=== PATIENT | female | born 1945 | race Caucasian/White ===

== ENCOUNTER 2020-03-14 06:09 | Outpatient (REF) | payer MEDICARE, SELFPAY | END 2020-03-14 06:10 | disposition home or self-care (01) | LOC: HO.LAB 06:09 | PROVIDERS: PCP Internal Medicine; Visit Provider Internal Medicine | DX: Z20.828 Contact with and (suspected) exposure to other viral communicable diseases (principal) | CPT/HCPCS: C9803; U0003 ==

== ENCOUNTER 2020-05-10 10:15 | Outpatient (REF) | payer MEDICARE, SELFPAY | END 2020-05-10 10:16 | disposition home or self-care (01) | LOC: HO.LAB 10:15 | PROVIDERS: Visit Provider Nurse Practitioner Family | DX: L02.811 Cutaneous abscess of head [any part, except face] (principal) | CPT/HCPCS: 87071; 87205 ==

== ENCOUNTER 2020-12-04 08:41 | Outpatient (REF) | payer MEDICARE, SELFPAY ==
--- NOTE | ~2020-12-04 | MM_ITS ---
EXAMINATION: MM SCREENING DIGITAL BREAST TOMOSYNTHESIS, BILATERAL CLINICAL INFORMATION: Screening. Asymptomatic. The lifetime risk of breast cancer based on the Tyrer-Cuzick Model is 8%. COMPARISON: Mammography: 12/03/2019, outside exam 09/08/2018 ([facility]). TECHNIQUE: Digital breast tomosynthesis is performed in both the craniocaudal and mediolateral oblique views along with computer-aided detection (CAD). Synthesized 2D images are generated from the tomosynthesis. Additional right CC view is provided. FINDINGS: The breasts are heterogeneously dense, which may obscure small masses (ACR BI-RADS breast composition Category c). Parenchymal pattern is similar to prior studies. There is no interval significant mass or developing density. No three-dimensional architectural abnormality. There are scattered bilateral benign round calcifications. The axilla and skin contours are unremarkable. No significant changes. MM/MM tomosynthesis screening BI IMPRESSION: No significant changes from prior studies. ASSESSMENT: BI-RADS 2: Benign RECOMMENDATION: Routine annual mammography screening. This patient's information was entered into a reminder system with a target due date for their next mammogram.
== END 2020-12-04 08:42 | disposition home or self-care (01) ==
LOC: HO.MAMMO 08:41
PROVIDERS: PCP Internal Medicine; Visit Provider Internal Medicine
DX: Z12.31 Encounter for screening mammogram for malignant neoplasm of breast (principal)
CPT/HCPCS: 77063; 77067

== ENCOUNTER 2021-01-27 15:17 | Emergency (ER) | payer MEDICARE, SELFPAY ==
--- NOTE | ~2021-01-27 | XR_ITS ---
EXAMINATION: XR CHEST CLINICAL INFORMATION: Shortness of breath. COMPARISON: 05/23/2019 chest radiographs. TECHNIQUE: Frontal view of the chest was obtained. FINDINGS: Mild increased hazy opacification is seen at the left lung base. The left upper lung field and right lung are clear. The heart and mediastinal structures are unremarkable. XR/XR chest 1V IMPRESSION: AP opacification at the left lung base is nonspecific and could be projectional however, appears increased and increased atelectasis or an infiltrate cannot be excluded.
[2021-01-27 16:38] VITALS: BP 128/60; PULSE 69; RESP 18; TEMP 36.9; O2SAT 96; BMI 33.6
[2021-01-27 17:15] LABS: IDNOW Serial# 9DD0AD1C; Strep A Nucleic Acid Negative (Negative)
[2021-01-27 17:25] LABS: COVID-19 Test Negative (Negative)
--- NOTE | 2021-01-27 17:50 | ED.URI ---
HPI - URI/Sore Throat General Chief Complaint: Upper Respiratory Symptoms Stated Complaint: sore throat, cough Time Seen by Provider: 01/27/21 17:34 Source: patient Mode of arrival: ambulatory Limitations: no limitations History of Present Illness HPI Narrative: Patient presents ED for sore throat, and cough since last night. Patient denies any chest pain or shortness of breath. Patient states vaccinated against COVID-19 virus. Patient denies any swelling of lower extremity or calf pain. Related Data Home Medications Medication Instructions Recorded Confirmed albuterol sulfate 90 mcg/actuation 0 mcg INHALATION 04/26/20 11/28/20 aerosol inhaler flu vacc [id number](65yr up)-PF 240 ml IM 04/26/20 11/28/20 mcg/0.7 mL intramuscular syringe fluticasone furoate 100 ea INHALATION 04/26/20 11/28/20 mcg-vilanterol 25 mcg/dose inhalation powder duloxetine 60 mg capsule,delayed 60 mg PO DAILY 11/28/20 11/28/20 release trazodone 50 mg tablet 50 mg PO BEDTIME 11/28/20 11/28/20 Previous Rx's Medication Instructions Recorded pantoprazole 40 mg tablet,delayed 40 mg PO DAILY #90 tab 07/09/20 release amoxicillin 500 mg capsule 1,000 mg PO TID 5 Days #30 cap 01/27/21 azithromycin 250 mg tablet 250 mg PO DAILY 6 Days #6 tab 01/27/21 Allergies Allergy/AdvReac Type Severity Reaction Status Date / Time No Known Allergies Allergy Verified 01/27/21 16:38 [No Known Allergies*] Review of Systems Review of Systems: Yes all other systems are reviewed and are negative Constitutional: Constitutional: Reports as per HPI, Reports no additional constitutional complaints and Denies snoring Eyes: Eyes: Reports as per HPI and Reports no additional eye complaints ENT: Reports system reviewed and no additional complaints, except as documented, Reports as per HPI and Reports sore throat Cardiovascular: Cardiovascular: Reports as per HPI, Reports no additional cardiovascular complaints, Denies chest pain, Denies chest pain at rest, Denies dyspnea and Denies dyspnea on exertion Respiratory: Respiratory: Reports as per HPI, Reports no additional respiratory complaints, Denies no additional respiratory complaints, Denies change in phlegm color, Denies chest congestion, Denies hemoptysis, Denies excessive phlegm production, Denies pain on inspiration, Reports pain with cough, Denies dyspnea, Denies dyspnea on exertion, Denies snoring, Denies stridor and Denies wheezing Gastrointestinal: Gastrointestinal: Reports as per HPI and Reports no additional gastrointestinal complaints Genitourinary: Genitourinary: Reports no additional female genitourinary complaints and Reports as per HPI Musculoskeletal: Musculoskeletal: Reports no additional musculoskeletal complaints and Reports as per HPI Neurologic: Reports system reviewed and no additional complaints, except as documented and Reports as per HPI Psychiatric: Psychiatric: Reports no additional psychiatric complaints and Reports as per HPI Allergic/Immunologic: Allergic/Immunologic: Denies wheezing PMFSH Past Medical History Medical History Chronic GERD Depression Environmental and seasonal allergies Impaired fasting glucose Mild intermittent asthma in adult without complication Osteopenia of multiple sites Skin lesion of face Tubular adenoma of colon Surgical History No pertinent past surgical history Family History Family History Sister Thyroid disorder Social History Social History Housing: House Alcohol intake: current Patient Tobacco Use Status: Never used Tobacco e-Cigarette/Vaping Use: Never Used Second Hand Smoke Exposure: No Advance Directives: No Advance Directives Information Provided: No Current occupational status: employed Current occupation: working part-time at [employer] Current occupational exposures/hazards: No Physical Exam Vital Signs: Vital Signs: Last Vital Signs Temp 98.3 F 01/27/21 17:59 Pulse 80 01/27/21 18:35 Resp 15 01/27/21 18:35 BP 144/72 H 01/27/21 18:35 Pulse Ox 96 01/27/21 18:35 Body Mass Index 33.6 Const: General: cooperative, healthy appearing, comfortable, no acute distress, well developed, alert and awake Orientation/consciousness: patient oriented x3 HENMT: Head: Yes normal to inspection, Yes No palpable skull fracture present, Yes normocephalic, Yes atraumatic and No abrasion Eyes: General: appearance normal, both eyes and all related structures Neck: Neck: Yes normal visual inspection, Yes full ROM, Yes no lymphadenopathy, Yes no meningeal signs, Yes trachea midline, Yes supple and No tender Chest: Chest palpation & inspection: normal inspection of the chest and normal palpation of entire chest wall Resp: Effort & Inspection: normal respiratory effort and able to speak in complete sentences Auscultation: clear to auscultation bilaterally Cardio: Jugular venous distension: no JVD Heart sounds: S1 normal heart sound present and S2 normal heart sound present GI: Inspection: Yes normal to inspection and No abdominal wall ecchymosis Palpation (GI): Soft to palpation, not firm, nontender, no guarding and not rigid : General: No CVA tenderness and Yes no CVA tenderness Back/Spine/Pelvis: Back: no CVA tenderness, No CVA tenderness and No back tenderness Skin: General skin exam: no rashes or lesions noted and elasticity normal Neuro: General: patient oriented x3, gait normal, no meningeal signs and CN's II-XI intact bilaterally Cranial nerves: Yes CN's II-XII intact bilaterally Extrem: Other: Lower extremities negative for swelling, pitting edema, or calf tenderness General: Yes normal to inspection and Yes full ROM Psych: Appearance: grossly normal, well kempt and not disheveled Course Course Course Narrative: Patient received COVID swab, rapid strep and chest x-ray. Reevaluation(s) Reevaluation #1: Covid and strep test came back negative. Chest x-ray shows questionable pneumonia. Will be discharged with antibiotics. Time: 17:58 MDM - URI/Sore Throat MDM Narrative Medical decision making narrative: Pneumonia Lab Data Labs: Lab Results 01/27/21 01/27/21 Range/Units 16:59 16:59 COVID-19 (JAYNE) Negative (Negative) COVID-19 Clin Com See Note S. pyogenes GrpA RONEY Negative (Negative) Discharge Plan Discharge Clinical Impression: Pneumonia Patient Disposition: Home, Self-Care Instructions: Bacterial Pneumonia (ED) Additional Instructions: Chest x-ray shows pneumonia. COVID swab and strep test came back negative. Return to the ED for any chest pain, shortness of breath, swelling of lower extremity, calf pain, coughing up blood, intractable fever, chills, weakness, or any other concerning symptoms. Please follow up with PCP. Prescriptions: New amoxicillin 500 mg capsule 1,000 mg PO TID 5 Days Qty: 30 RF: 0 azithromycin 250 mg tablet 250 mg PO DAILY 6 Days Qty: 6 RF: 0 No Action pantoprazole 40 mg tablet,delayed release (DR/EC) 40 mg PO DAILY Qty: 90 RF: 3 Fluzone HighDose Quad 20-21 PF 240 mcg/0.7 mL syringe IM RF: 0 Breo Ellipta 100-25 mcg/dose blister with device inhalation RF: 0 albuterol sulfate 90 mcg/actuation HFA aerosol inhaler 0 mcg inhalation RF: 0 duloxetine 60 mg capsule,delayed release(DR/EC) 60 mg PO DAILY RF: 0 trazodone 50 mg tablet 50 mg PO BEDTIME RF: 0 Stand Alone Forms: Work/School Release Interventions: ED Discharge Assessment Last Done: 01/27/21 18:36 Discharge Date/Time: 01/27/21 18:39 Print Language: Hungarian
[2021-01-27 17:59] VITALS: BP 125/67; PULSE 60; RESP 16; TEMP 36.8; O2SAT 98
[2021-01-27 18:35] VITALS: BP 144/72; PULSE 80; RESP 15; O2SAT 96
== END 2021-01-27 18:39 | disposition home or self-care (01) ==
PROVIDERS: Emergency Provider Emergency Medicine Emergency Medical Services; PCP Internal Medicine
DX: J18.9 Pneumonia, unspecified organism (principal); R05.9 Cough, unspecified; Z20.822 Contact with and (suspected) exposure to COVID-19; Z79.899 Other long term (current) drug therapy
CPT/HCPCS: 36415; 71045; 87635; 87651; 99283; 99284

== ENCOUNTER 2021-02-02 09:35 | Outpatient (REF) | payer MEDICARE, OTHER, SELFPAY ==
--- NOTE | ~2021-02-02 | XR_ITS ---
EXAMINATION: XR CHEST CLINICAL INFORMATION: Cough COMPARISON: Previous chest x-ray most recent 01/27/2021 TECHNIQUE: 2 views of the chest were obtained. FINDINGS: No significant abnormality is noted involving the heart, lungs, mediastinum, bony thorax or soft tissues. XR/XR chest 2V IMPRESSION: Unremarkable examination.
== END 2021-02-02 09:36 | disposition home or self-care (01) ==
LOC: HO.HMGCX 09:35
PROVIDERS: PCP Internal Medicine; Visit Provider Physician Assistant Medical
DX: R05.9 Cough, unspecified (principal)
CPT/HCPCS: 71046

== ENCOUNTER 2021-02-02 11:12 | Outpatient (REF) | payer MEDICARE, SELFPAY | END 2021-02-02 11:13 | disposition home or self-care (01) | LOC: HO.LNP 11:12 | PROVIDERS: Referring Provider Physician Assistant Medical; Visit Provider Physician Assistant Medical | DX: Z20.822 Contact with and (suspected) exposure to COVID-19 (principal) | CPT/HCPCS: U0003; U0005 ==

== ENCOUNTER 2021-03-06 12:24 | Outpatient (REF) | payer MEDICARE, SELFPAY ==
[2021-03-06 14:31] LABS: Alanine Aminotransferase 17 U/L (0-31); Anion Gap 11 (12-20); Aspartate Amino Transferase 21 U/L (5-31); Blood Urea Nitrogen 11 mg/dL (9-16); Calcium 9.4 mg/dL (8.4-10.2); Carbon Dioxide 26 mmol/L (22-29); Chloride 108 mmol/L (96-108); Cholesterol 175 mg/dL; Estimated Glomerular Filt Rate > 60; Glucose Fasting 93 mg/dL (60-99); HDL Cholesterol 61 mg/dL; LDL Cholesterol Calculated 95 mg/dl; Potassium 4.2 mmol/L (3.3-5.1); Sodium 141 mmol/L (135-145); Triglycerides 98 mg/dL
[2021-03-06 14:55] LABS: Vitamin D 25-OH Total 36.3 ng/mL (>30)
== END 2021-03-06 12:25 | disposition home or self-care (01) ==
LOC: HO.HMGCLDS 12:24
PROVIDERS: PCP Internal Medicine; Visit Provider Internal Medicine
DX: Z00.00 Encounter for general adult medical examination without abnormal findings (principal); I10 Essential (primary) hypertension; Z78.0 Asymptomatic menopausal state
CPT/HCPCS: 36415; 80048; 80061; 82306; 84450; 84460

== ENCOUNTER 2021-08-05 11:00 | Outpatient (RCR) | payer MEDICARE, OTHER, SELFPAY ==
--- NOTE | 2021-07-17 14:22 | MHC.PT.EP ---
[facility] [employer] Office [place] Office [place] Office [address] [phone] F: [phone] F: [phone] F: [phone] F: [phone] Physical Therapy Plan of Care Date of Evaluation: Date of Surgery: NA Diagnosis: Strain of muscles, fascia and tendon of lower back, initial encounter Assessment: Slime is a 75 year old female who is referred to PT for strain of muscles, fascia and tendon of lower back, initial encounter . She reports of having sudden onset of pain in her back 10 days back after bending over the bed to reach for weighted blanket. She denies any other trauma or fall. On PT examination she presented with 0/10 pain at rest and 8/10 pain with prolonged sitting, and bending over, TTP over L SI, altered pelvic symmetry, decreased ROM, decreased muscle strength, altered posture and gait. She also reports of having stress urinary incontinence and would like to seek [facility]LOOR [facility]YS[facility] THERAPY for it. She is independent with ADLS and work activities requiring her to sit, carry heavy weights and bend. She would benefit from skilled PT to address the aforementioned impairments and improve tolerance to functional activities. Frequency and Duration: The patient will be seen 2/week for 5 weeks Short Term Goals: 1. Pt will have 50% decrease in pain which will help her sit for meals without pain in 2 weeks. 2. Pt will be able to move trunk through full plane of motion without pain which will enable her to dress her lower body in 3 weeks. 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 Pt will demonstrate an increase in muscle strength by 1 grade which will enable her to perform chores at home without pain in 4 weeks. 2. Pt will be return to PLOF and be independent with HEPs in 5 weeks Treatment Plan: Modalities to reduce pain, spasms and effusion. Manual therapy to restore motion and function. Therapeutic exercise to improve strength and flexibility. Neuromuscular re-education for posture and balance. Therapeutic activities to return to functional activities of daily living. Electronically signed by: Rachel Meadows PT DPT Please sign and return to therapist. Thank you for your referral.
--- NOTE | 2021-08-05 11:53 | MHC.PT.DC ---
[facility] [place] Office [place] Office [place] Office [address] [facility] [phone] F: [phone] F: [phone] F: [phone] F: [phone] Physical Therapy Discharge Report Diagnosis: Strain of muscles, fascia and tendon of lower back, initial encounter Date of Surgery: NA Date of Evaluation: 07/17/21 Date of Discharge: 08/05/21 Treatments to Date: 4 Cancellations to Date: 0 No Shows to Date: Discharge Status: Achieved Goals Improved Function Independent with HEP Discharge Summary: Slime arrived stating she has been pain free. She does not have the back pain for which she came to therapy however reports of being sore in her lower back which she attributes to her osteoporosis. Pt requested d/c today as she is painfree and stated that she will be able to perform her HEP by herself. She is therefore being d/c from PT. All exercises were reviewed with her. Electronically signed by: Rachel Meadows PT DPT Please sign and return to therapist. Thank you for your referral.
== END 2021-08-05 11:54 | disposition home or self-care (01) ==
LOC: HO.PT 11:00
PROVIDERS: PCP Internal Medicine; Visit Provider Internal Medicine
DX: S39.012D Strain of muscle, fascia and tendon of lower back, subsequent encounter (principal)
CPT/HCPCS: 97110; 97112; 97140; 97161; 97530

== ENCOUNTER 2021-12-06 11:23 | Outpatient (REF) | payer MEDICARE, OTHER, SELFPAY ==
--- NOTE | ~2021-12-06 | MM_ITS ---
EXAMINATION: MM SCREENING DIGITAL BREAST TOMOSYNTHESIS, BILATERAL CLINICAL INFORMATION: Screening. Asymptomatic. Family history breast cancer, sister age 70. The lifetime risk of breast cancer based on the Tyrer-Cuzick Model is 8%. COMPARISON: Mammography: 12/04/2020, 12/02/2019, 09/08/2018 TECHNIQUE: Digital breast tomosynthesis is performed in both the craniocaudal and mediolateral oblique views along with computer-aided detection (CAD). Synthesized 2D images are generated from the tomosynthesis. FINDINGS: The breasts are heterogeneously dense, which may obscure small masses (ACR BI-RADS breast composition Category c). There are no significant masses, abnormal calcifications, or other abnormalities. Parenchymal pattern is similar to prior studies. There is no developing density or architectural abnormality. The axilla and skin contours are unremarkable. No significant changes. MM/MM tomosynthesis screening BI IMPRESSION: No mammographic evidence of malignancy. ASSESSMENT: BI-RADS 1: Negative RECOMMENDATION: Routine annual mammography screening. This patient's information was entered into a reminder system with a target due date for their next mammogram.
== END 2021-12-06 11:24 | disposition home or self-care (01) ==
LOC: HO.MAMMO 11:23
PROVIDERS: Visit Provider Internal Medicine
DX: Z12.31 Encounter for screening mammogram for malignant neoplasm of breast (principal)
CPT/HCPCS: 77063; 77067

== ENCOUNTER 2022-04-01 07:56 | Outpatient (REF) | payer MEDICARE, OTHER, SELFPAY ==
[2022-04-01 10:28] LABS: Alanine Aminotransferase 18 U/L (0-31); Anion Gap 13 (12-20); Aspartate Amino Transferase 20 U/L (5-31); Blood Urea Nitrogen 11 mg/dL (9-16); Carbon Dioxide 27 mmol/L (22-29); Chloride 106 mmol/L (96-108); Cholesterol 193 mg/dL; Estimated Glomerular Filt Rate > 60; Glucose Fasting 94 mg/dL (60-99); HDL Cholesterol 66 mg/dL; LDL Cholesterol Calculated 107 mg/dl; Potassium 4.3 mmol/L (3.3-5.1); Sodium 142 mmol/L (135-145); Triglycerides 104 mg/dL
[2022-04-01 12:35] LABS: Vitamin D 25-OH Total 31.8 ng/mL (>30)
== END 2022-04-01 07:57 | disposition home or self-care (01) ==
LOC: HO.LAB 07:56
PROVIDERS: PCP Internal Medicine; Visit Provider Internal Medicine
DX: Z00.01 Encounter for general adult medical examination with abnormal findings (principal); D12.6 Benign neoplasm of colon, unspecified; F32.5 Major depressive disorder, single episode, in full remission; J30.89 Other allergic rhinitis; J45.20 Mild intermittent asthma, uncomplicated; K21.9 Gastro-esophageal reflux disease without esophagitis; M85.89 Other specified disorders of bone density and structure, multiple sites; R73.01 Impaired fasting glucose
CPT/HCPCS: 36415; 80048; 80061; 82306; 84450; 84460

== ENCOUNTER → 2022-08-29 13:48 | Outpatient (BNVA) | payer MEDICARE, OTHER, SELFPAY | PROVIDERS: PCP Internal Medicine; Referring Provider Internal Medicine; Visit Provider Surgery | DX: K22.4 Dyskinesia of esophagus (principal); K44.9 Diaphragmatic hernia without obstruction or gangrene; J45.20 Mild intermittent asthma, uncomplicated; R06.02 Shortness of breath | CPT/HCPCS: 99202 ==

== ENCOUNTER 2022-10-07 09:14 | Outpatient (REF) | payer MEDICARE, MEDICAID, SELFPAY ==
--- NOTE | ~2022-10-07 | XR_ITS ---
EXAMINATION: XR KNEE, RIGHT CLINICAL INFORMATION: Contusion COMPARISON: None available. TECHNIQUE: Four views of the right knee. FINDINGS: There is moderate suprapatellar joint effusion. No loose bodies are bony erosive changes. Mild reduction in the medial compartment joint space is seen. No acute fracture, dislocation or lytic process seen. XR/XR knee RT 4V IMPRESSION: 1. Moderate suprapatellar joint effusion. No visible acute fracture or dislocation seen. 2. Mild degenerative changes medial compartment right knee.
== END 2022-10-07 09:15 | disposition home or self-care (01) ==
LOC: HO.HMGCX 09:14
PROVIDERS: PCP Internal Medicine; Visit Provider Internal Medicine
DX: S80.01XD Contusion of right knee, subsequent encounter (principal)
CPT/HCPCS: 73564

== ENCOUNTER 2022-10-10 10:03 | Outpatient (REF) | payer OTHER, MEDICARE, MEDICAID, SELFPAY ==
--- NOTE | ~2022-10-10 | MR_ITS ---
EXAMINATION: MR BRAIN WITHOUT AND WITH CONTRAST CLINICAL INFORMATION: Disturbance of taste and smell COMPARISON: None TECHNIQUE: Multiplanar multisequence MR imaging of the brain was obtained without and following the administration of 10 mL Gadavist intravenous contrast. FINDINGS: No abnormal mass lesion or enhancement along the planum sphenoidale or cribriform plate. Normal appearance of the inferior aspects of the frontal lobes bilaterally. Normal appearance of the olfactory grooves and olfactory bulbs bilaterally. The olfactory recesses appear patent bilaterally. Normal appearance of the pituitary gland and infundibulum. The suprasellar cistern is patent. Normal appearance of the optic chiasm. The 7th and 8th cranial nerve complexes are symmetric in course, caliber, and enhancement characteristics. Major inner ear structures including the cochlea, semicircular canals, and vestibule are symmetric in morphology and demonstrate normal CSF signal. No enhancing intracanalicular or cerebellopontine angle mass lesion is visualized. There is no acute infarct on diffusion-weighted imaging. There is no intracranial hemorrhage on iron-sensitive imaging. No extra-axial collection or mass effect/herniation. Scattered periventricular and deep white matter T2 FLAIR hyperintensities consistent with mild underlying microangiopathy. No hydrocephalus. The ventricles are normal in morphology and size. No abnormal parenchymal or extra-axial enhancement. The midline structures are normal. The cerebellar tonsils are normally positioned. The craniocervical junction is normal. Marrow signal is within normal limits. The visualized soft tissues are without significant abnormality. No signal abnormality within the paranasal sinuses or within the mastoid air cells. MR/MR head/brain wo/w con IMPRESSION: 1. No abnormality along the olfactory pathway or course of the seventh/eighth nerve complex is identified. 2. Mild chronic microangiopathy. Otherwise unremarkable contrast-enhanced MRI of brain.
== END 2022-10-10 10:04 | disposition home or self-care (01) ==
LOC: HO.MRI 10:03
PROVIDERS: PCP Internal Medicine; Visit Provider Otolaryngology
DX: R43.8 Other disturbances of smell and taste (principal)
CPT/HCPCS: 70553; A9585

== ENCOUNTER 2022-10-14 07:44 | Outpatient (REF) | payer OTHER, MEDICARE, MEDICAID, SELFPAY ==
--- NOTE | ~2022-10-14 | XR_ITS ---
EXAMINATION: XR KNEE, RIGHT CLINICAL INFORMATION: Reason for Exam M25.569 - Pain in unspecified knee COMPARISON: Knee radiographs 10/07/2022 TECHNIQUE: 2 views of the knee FINDINGS: Nondisplaced fracture through the inferior pole of the patella. 4 view knee radiographs may be useful for further evaluation. Mild degenerative changes of the knee with small patellofemoral compartment osteophytes. Small suprapatellar joint effusion decreased from prior. Soft tissues are unremarkable. XR/XR knee RT 2V IMPRESSION: 1. Nondisplaced fracture through the inferior pole of the patella. 4 view knee radiographs may be useful for further evaluation. 2. Small suprapatellar joint effusion decreased from prior. 3. Mild degenerative changes of the knee.
== END 2022-10-14 07:45 | disposition home or self-care (01) ==
LOC: HO.HOSX 07:44
PROVIDERS: Visit Provider Physician Assistant
DX: S82.091A Other fracture of right patella, initial encounter for closed fracture (principal); W18.31XA Fall on same level due to stepping on an object, initial encounter; Y93.89 Activity, other specified; Y92.512 Supermarket, store or market as the place of occurrence of the external cause; Y99.8 Other external cause status
CPT/HCPCS: 73560; 99202

== ENCOUNTER 2022-11-03 11:24 | Outpatient (REF) | payer OTHER, MEDICARE, SELFPAY | END 2022-11-03 11:25 | disposition home or self-care (01) | LOC: HO.HOSX 11:24 | PROVIDERS: Visit Provider Physician Assistant | DX: Z13.89 Encounter for screening for other disorder (principal) ==

== ENCOUNTER 2022-11-06 10:57 | Outpatient (AMB) | payer OTHER, MEDICARE, MEDICAID, SELFPAY ==
--- NOTE | 2022-11-06 11:04 | MHC.OFFVIS ---
Intake Intake Visit Reasons: OV- non displaced patella fracture Intake Note: Slime is a 77 year old female who presents today for an evaluation of right knee injury, DOI 10/06/22. Patient reports still having pain when sitting and standing, also she is able to walk okay. Allergies No Known Allergies [No Known Allergies*] Allergy (Verified 11/06/22 11:11) HPI OV- non displaced patella fracture HPI Details 77-year-old female who presents in the office today for a follow up of a right patella fracture, which occurred on 10/06/2022 status post a fall on a plastic container. The patient reports still having pain with sitting and standing. She states she is about to ambulate ?okay?. [facility] Medical History Depression, major, in remission Environmental and seasonal allergies Hiatal hernia with GERD Impaired fasting glucose Mild intermittent asthma in adult without complication Osteopenia of multiple sites Skin lesion of face Tubular adenoma of colon Surgical History History of ankle surgery No pertinent past surgical history Family History Sister Thyroid disorder Sister Breast cancer Father Leukemia Maternal Aunt Breast cancer Paternal Aunt Bone cancer Social History Housing: House Alcohol intake: current Alcohol intake frequency: a few times a week Patient Tobacco Use Status: Never used Tobacco e-Cigarette/Vaping Use: Never Used Second Hand Smoke Exposure: No Current occupational status: employed Current occupation: working part-time at [employer] Current occupational exposures/hazards: No Cognitive needs: No Hearing needs: No Vision needs: Yes Review of Systems Const All systems reviewed & are unremarkable except as noted in HPI and below Physical Exam Const General: cooperative and no acute distress Orientation/consciousness: patient oriented x3 Resp Effort & Inspection: normal respiratory effort and able to speak in complete sentences Cardio Rate: regular rate Peripheral pulses: Peripheral pulses 2+ throughout GI Palpation (GI): Soft to palpation Skin Lesions: no lesions Rashes: no rashes Neuro General: patient oriented x3 Extrem Other: Right knee: ROM is 0-100 degrees. No erythema or edema. No signs of infection. Slight tenderness to palpation over the distal aspect of the patella. NVI. Psych Mental Status: mental status grossly normal Assessment & Plan Assessment & Plan (1) Right patella fracture: Comment: Right distal nondisplaced patella fracture; 10/06/2022 Code(s): S82.001A - Unspecified fracture of right patella, initial encounter for closed fracture Plan Ms. Singh is a 77-year-old female who presents in the office today for a follow up of a right patella fracture, which occurred on 10/06/2022 status post a fall on a plastic container. The patient reports still having pain with sitting and standing. She states she is about to ambulate ?okay?. The patient will continue with the brace. She will unlock 15 degrees each week. She will continue to work with physical therapy, who will assist with her unlocking the brace safety at 15 degrees each week. She will continue to work on ROM. Follow up will be in 6 weeks with repeat x-rays, or sooner if needed. X-rays of the right knee which were obtained while in the office today and were reviewed by me, Ada Mcpherson PA-C, revealed routine healing of a nondisplaced patella fracture. Orders: Orders XR knee RT 2V Today M25.569 - Pain in unspecified knee Patient Instructions: Scribed for Ada Mcpherson PA-C by Teresa Headley nurses medical assistants phlebotomists, on 11/06/2022 at 10:59 am, EST. Your attestation Coding Level of Care Code Global (70678) Diagnoses Right patella fracture S82.001A
== END 2022-11-06 11:39 | disposition home or self-care (01) ==
PROVIDERS: PCP Internal Medicine; Visit Provider Physician Assistant
DX: S82.001D Unspecified fracture of right patella, subsequent encounter for closed fracture with routine healing (principal)
CPT/HCPCS: 99213

== ENCOUNTER 2022-11-06 12:50 | Outpatient (REF) | payer OTHER, SELFPAY ==
--- NOTE | ~2022-11-06 | XR_ITS ---
EXAMINATION: XR KNEE, RIGHT CLINICAL INFORMATION: Knee pain. COMPARISON: Right knee 10/14/2022 and 10/07/2022. TECHNIQUE: 4 views of the right knee. FINDINGS: Prepatellar soft tissue swelling persists. Previously seen right knee joint effusion has become progressively smaller and is no longer seen. The fracture of the inferior pole of the patella is still apparent. No new fractures. Joint spaces are well maintained. XR/XR knee RT 2V IMPRESSION: Healing fracture of the inferior pole of the patella. Resolved right knee joint effusion. No new fractures are seen.
== END 2022-11-06 12:51 | disposition home or self-care (01) ==
LOC: HO.HOSX 12:50
PROVIDERS: Visit Provider Physician Assistant
DX: S82.001D Unspecified fracture of right patella, subsequent encounter for closed fracture with routine healing (principal)
CPT/HCPCS: 73560

== ENCOUNTER 2022-11-20 13:29 | Outpatient (AMB) | payer MEDICARE, MEDICAID, SELFPAY ==
[2022-11-20 13:36] VITALS: BP 136/66; PULSE 92; O2SAT 97; BMI 33.9
--- NOTE | 2022-11-20 13:36 | A.OFFPC_ITS ---
<Statement entered by Mei Edward MD - 08/31/24 15:18> This note has been administratively?closed. Vital Signs 11/20/22 13:36 Height 5 ft 7 in Weight 216 lb 4 oz BMI 33.9 BP 136/66 Blood Pressure Location Rt brachial Position Sitting Pulse 92 Pulse Source Pulse Oximeter Pulse Oximetry (%) 97 Oxygen Delivery Method Room Air Intake Visit Reasons: 6M Follow up ostepenia Intake Note: Pt is here for 6 month f/u ostepenia Allergies No Known Allergies [No Known Allergies*] Allergy (Verified 11/20/22 14:16) Medication List - Last Reconciled 11/20/22 by Mei Edward MD albuterol sulfate 90 mcg/actuation (ProAir HFA) 2 puffs inhalation Q6H PRN calcium carbonate-vitamin D3 600 mg-12.5 mcg (500 unit) (Calcium 600 with Vitamin D3) caps PO duloxetine 60 mg PO DAILY fluticasone furoate-vilanterol 100-25 mcg/dose (Breo Ellipta) 1 inh inhalation DAILY multivitamin (Daily Multi-Vitamin tablet) 1 tab PO DAILY pantoprazole 40 mg PO DAILY Tobacco use date assessed: 11/20/22 Fall risk assessment: 1 Fall in past year Last assessed Fall Risk: 11/20/22 Dental Screening Dental Screen Date: 11/20/22 Did you have a dental visit in the last 12 months?: Yes Did you have a dental problem in the last 6 months where you did not have access to dental care?: No Was dental information given to patient?: No PFSH Medical History Depression, major, in remission Environmental and seasonal allergies Hiatal hernia with GERD Impaired fasting glucose Mild intermittent asthma in adult without complication Osteopenia of multiple sites Skin lesion of face Tubular adenoma of colon Surgical History History of ankle surgery No pertinent past surgical history Family History Sister Thyroid disorder Sister Breast cancer Father Leukemia Maternal Aunt Breast cancer Paternal Aunt Bone cancer Social History Housing: House Alcohol intake: current Alcohol intake frequency: a few times a week Patient Tobacco Use Status: Never used Tobacco e-Cigarette/Vaping Use: Never Used Second Hand Smoke Exposure: No Current occupational status: employed Current occupation: working part-time at [employer] Current occupational exposures/hazards: No Cognitive needs: No Hearing needs: No Vision needs: Yes Questionnaire PHQ-9 Over the last 2 weeks, how often have you been bothered by any of the following problems? 1. Little interest or pleasure in doing things: more than half the days 2. Feeling down, depressed, or hopeless: several days 3. Trouble falling or staying asleep, or sleeping too much: more than half the days 4. Feeling tired or having little energy: not at all 5. Poor appetite or overeating: more than half the days 6. Feeling bad about yourself - or that you are a failure or have let yourself or your family down: not at all 7. Trouble concentrating on things, such as reading the newspaper or watching television: several days 8. Moving or speaking so slowly that other people could have noticed. Or the opposite - being so fidgety or restless that you have been moving around a lot more than usual: not at all 9. Thoughts that you would be better off or of hurting yourself in some way: not at all Total score: 8 Depression Screening Interpretation: Positive Depression Screening Follow-up: Existing condition, In treatment and Community Mental Health Worker F/U (Wants to see a therapist) Source: Developed by Drs. Kaushik Arora, Ruth Ann Wiley, Alex Thomas and colleagues, with an educational sydnie from [employer]. Thrive Questionnaire Date Thrive assessed: 11/20/22 I am a: Patient What is your living situation today?: I have a steady place to live Within the past 12 months, did the food you bought not last and you didn't have the money to get more?: Never true Within the past 12 months, did you worry whether your food would run out before you got money to buy more?: Never true Do you have trouble paying for medicines?: No Do you have trouble getting transportation to medical appointments?: No Do you have trouble paying your heating and electricity bill?: No Do you have trouble taking care of your child, family member or friend?: No Do you have trouble with day-to-day activities such as bathing, preparing meals, shopping, managing finances, etc.?: No Are you currently unemployed and looking for a job?: No Are you interested in more education?: No AUDIT C Alcohol Use Questionnaire (AUDIT-C) 1. How often do you have a drink containing alcohol?: Never 3. How often do you have six or more drinks on one occasion?: Never Total Score: 0 Score Reviewed/Action Taken: Yes ANA-7 AMB Questionnaire ANA-7 Date ANA - 7 assessed: 11/20/22 Feeling nervous, anxious, or on edge: 0 = Not at all Not being able to stop or control worryin = Not at all Worrying too much about different things: 0 = Not at all Trouble relaxin = Not at all Being so restless that it is hard to sit still: 0 = Not at all Becoming easily annoyed or irritable: 0 = Not at all Feeling afraid as if something awful might happen: 0 = Not at all Total ANA-7 score (0-4 normal; 5-9 mild; 10-14 moderate; 15-21 severe): 0 Source: Developed by Drs. Kaushik Arora, Ruth Ann Wiley, Alex Thomas and colleagues, with an educational sydnie from [employer]. ANA-7 Assessment Billing ANA-7 Assessment Tool: ANA-7 Assessment 64598 Physical exam (Primary Care) Vital Signs: Last Vital Signs Pulse 92 11/20/22 13:36 BP 136/66 11/20/22 13:36 Pulse Ox 97 11/20/22 13:36 Oxygen Delivery Method Room Air 11/20/22 13:36 BMI result Body Mass Index 33.9 Tobacco/Smoking Status: Tobacco use Status Tobacco use date assessed 11/20/22 11/20/22 13:37 Patient Tobacco Use Status Never used Tobacco 11/20/22 13:37 e-Cigarette/Vaping Use Never Used 11/20/22 13:37 PHQ-9: PHQ-9 Score PHQ-9: Total score 8 11/20/22 14:21 Depression Screening Interpretation: Positive Depression Screening Follow-up: Existing condition, In treatment and Community Mental Health Worker F/U (Wants to see a therapist) Thrive Assessment: Date of Thrive Assessment Date Thrive assessed 11/20/22 11/20/22 14:21 Assessment and Plan Assessment & Plan (1) Right patella fracture: Comment: Right distal nondisplaced patella fracture; 10/06/2022 Code(s): S82.001A - Unspecified fracture of right patella, initial encounter for closed fracture (2) Osteopenia of multiple sites: Code(s): M85.89 - Other specified disorders of bone density and structure, multiple sites Orders: Orders XR DEXA axial skeleton Today M85.89 - Other specified disorders of bone density and structure, multiple sites, S82.001A - Unspecified fracture of right patella, initial encounter for closed fracture Coding Level of Care Code Est Pt Level 3 (40691) Diagnoses Right patella fracture S82.001A Osteopenia of multiple sites M85.89 Additional Codes ANA-7 Assessment Billing - ANA-7 Assessment Tool: ANA-7 Assessment 02116 ([id number])
== END 2022-11-20 14:24 | disposition home or self-care (01) ==
PROVIDERS: PCP Internal Medicine; Visit Provider Internal Medicine
DX: S82.001A Unspecified fracture of right patella, initial encounter for closed fracture (principal); M85.89 Other specified disorders of bone density and structure, multiple sites
CPT/HCPCS: 99499

== ENCOUNTER 2022-12-09 08:00 | Outpatient (RCR) | payer OTHER, MEDICARE, SELFPAY ==
--- NOTE | 2022-12-03 16:15 | MHC.PT.EP ---
[facility] [place] Office [place] Office [place] Office [address] Shani Gould [address] [phone] F: [phone] F: [phone] F: [phone] F: [phone] Physical Therapy Plan of Care Date of Evaluation: Date of Surgery: N/A Diagnosis: Rt patella fx, gentle ROM (RL) Assessment: pt is a 77 y/o female presenting to physical therapy w/ referring diagnosis of Rt patellar fx. Impairments include pain, decreased range of motion, decreased strength, impaired functional mobility, impaired postural awareness, and altered ambulation mechanics. pt is a good candidate for skilled PT due to age, potential remediation of impairments, typical disease/condition progression and prognosis, comorbidities, and motivation. pt would benefit from skilled PT intervention to provide a tailored strengthening and stretching exercise program, functional training, gait training, postural re-training, neuromuscular re-education, modalities as needed for pain, equipment safety demonstration. Frequency and Duration: The patient will be seen 2x/wk for 4 wks Short Term Goals: pt will be I w/ HEP to promote self-management of condition. pt will improve R quad strength by 1 MMT grade to promote ease in sit<>stand transfers. Service Center Appraiser Goals: pt will report a statistically significant improvement in self-reported outcome measure, LEFI, to promote return to PLOF. pt will report <3/10 R knee pain w/ squatting to cook pickled meat object from floor. Treatment Plan: Modalities to reduce pain, spasms and effusion. Manual therapy to restore motion and function. Therapeutic exercise to improve strength and flexibility. Neuromuscular re-education for posture and balance. Therapeutic activities to return to functional activities of daily living. Electronically signed by: Clair Dick PT, DPT Please sign and return to therapist. Thank you for your referral.
--- NOTE | 2023-01-01 08:13 | MHC.PT.DC ---
[facility] [place] Office [place] Office [place] Office [address] Shani Gould [address] [phone] F: [phone] F: [phone] F: [phone] F: [phone] Physical Therapy Discharge Report Diagnosis: Rt patella fx, gentle ROM (RL) Date of Surgery: N/A Date of Evaluation: 12/03/22 Date of Discharge: 01/01/23 Treatments to Date: 2 Cancellations to Date: 4 No Shows to Date: 0 Discharge Status: Improved Function Independent with HEP Patient Elected to Stop Discharge Summary: The patient only attended her initial evaluation and one follow-up. I called the patient yesterday on 12/31/22 to follow-up with her and assess her status. She stated at this time she has a lot going on personally and cannot commit to PT at this time. She feels comfortable with her exercises and feels her knee is 95% better. She is discharged from this physical therapy plan of care. Electronically signed by: Clair Dick PT, DPT Please sign and return to therapist. Thank you for your referral.
== END 2023-01-01 08:13 | disposition home or self-care (01) ==
LOC: HO.PT 08:00
PROVIDERS: PCP Internal Medicine; Visit Provider Physician Assistant
DX: S82.001D Unspecified fracture of right patella, subsequent encounter for closed fracture with routine healing (principal)
CPT/HCPCS: 97110; 97162

== ENCOUNTER 2022-12-19 05:25 | Outpatient (REF) | payer MEDICARE, SELFPAY ==
--- NOTE | ~2022-12-19 | XR_ITS ---
EXAMINATION: XR KNEE, RIGHT CLINICAL INFORMATION: Pain. COMPARISON: Radiograph right knee 11/06/2022. TECHNIQUE: Two views of the right knee. FINDINGS: Progressive healing of a fracture along the inferior pole of the patella with now a barely visible fracture line suggesting osseous bridging. No acute fractures or subluxation. Mild joint space narrowing of the medial and patellofemoral compartments. No abnormal soft tissue calcifications. Stable small joint effusion. XR/XR knee RT 2V IMPRESSION: 1. Progressive healing of a fracture along the inferior pole of the patella. 2. No acute fractures or subluxation. 3. Stable small joint effusion.
== END 2022-12-19 05:26 | disposition home or self-care (01) ==
LOC: HO.HOSX 05:25
PROVIDERS: Visit Provider Physician Assistant
DX: S82.001D Unspecified fracture of right patella, subsequent encounter for closed fracture with routine healing (principal)
CPT/HCPCS: 73560

== ENCOUNTER 2022-12-19 09:45 | Outpatient (AMB) | payer OTHER, MEDICARE, SELFPAY ==
[2022-12-19 09:51] VITALS: BMI 33.8
--- NOTE | 2022-12-19 09:51 | MHC.OFFVIS ---
Intake Vital Signs 12/19/22 09:51 Height 5 ft 7 in Weight 216 lb BMI 33.8 Intake Visit Reasons: OV- non displaced patella fracture Intake Note: Slime is a 77 year old female who presents today for an evaluation of right knee injury, DOI 10/06/22. Hx of taking Tylenol for 3 months for pain but no relief. Patient reports still having a pulling sensation on the medial aspect of the knee when she is sitting and stand. She states that her symptoms are improving slowly. Patient states that PT is providing her mild relief, also she is doing home exercises which are providing her mild relief. Allergies No Known Allergies [No Known Allergies*] Allergy (Verified 12/19/22 09:56) HPI OV- non displaced patella fracture HPI Details 77-year-old female who presents in the office today for a follow up of a right patella fracture, which occurred on 10/06/2022 status post a fall on a plastic container. The patient reports a pulling sensation on the medial aspect of the right knee with sitting and standing. She claims her symptoms are improving slowly. She confirm attending physical therapy with mild relief. She states she is working on the at home exercises provided to her with mild relief. She confirms the use of Tylenol for 3 months, since 08/2022, with no pain relief. [facility] Medical History Depression, major, in remission Environmental and seasonal allergies Hiatal hernia with GERD Impaired fasting glucose Mild intermittent asthma in adult without complication Osteopenia of multiple sites Skin lesion of face Tubular adenoma of colon Surgical History History of ankle surgery No pertinent past surgical history Family History Sister Thyroid disorder Sister Breast cancer Father Leukemia Maternal Aunt Breast cancer Paternal Aunt Bone cancer Social History Housing: House Alcohol intake: current Alcohol intake frequency: a few times a week Patient Tobacco Use Status: Never used Tobacco e-Cigarette/Vaping Use: Never Used Second Hand Smoke Exposure: No Current occupational status: employed Current occupation: working part-time at [employer] Current occupational exposures/hazards: No Cognitive needs: No Hearing needs: No Vision needs: Yes Review of Systems Const All systems reviewed & are unremarkable except as noted in HPI and below Physical Exam Vital Signs: BMI result Body Mass Index 33.8 Const General: cooperative, healthy appearing and no acute distress Resp Effort & Inspection: normal respiratory effort and able to speak in complete sentences Cardio Rate: regular rate Peripheral pulses: Peripheral pulses 2+ throughout GI Palpation (GI): Soft to palpation Skin Lesions: no lesions Rashes: no rashes Extrem Other: Right knee: ROM is 0-100 degrees. No erythema or edema. No signs of infection. Slight tenderness to palpation over the distal aspect of the patella. NVI. Assessment & Plan Assessment & Plan (1) Right patella fracture: Comment: Right distal nondisplaced patella fracture; 10/06/2022 Code(s): S82.001A - Unspecified fracture of right patella, initial encounter for closed fracture Plan Ms. Singh is a 77-year-old female who presents in the office today for a follow up of a right patella fracture, which occurred on 10/06/2022 status post a fall on a plastic container. The patient reports a pulling sensation on the medial aspect of the right knee with sitting and standing. She claims her symptoms are improving slowly. She confirm attending physical therapy with mild relief. She states she is working on the at home exercises provided to her with mild relief. She confirms the use of Tylenol for 3 months, since 08/2022, with no pain relief. The patient reports she stopped going to physical therapy on 12/09/2022. She states this is due to her doing the same exercises at home. I discussed with her the benefit of formal physical therapy. We have agreed to compromise on 1 more therapy session for her to have the home exercise program demonstrated for quad strength. I did offer should she feels like she has concerns or plateau she can call the office and I will send in a referral for formal physical therapy again. Follow up will be PRN, or sooner if needed. X-rays of the right knee which were obtained while in the office today and were reviewed by me, Ada Mcpherson PA-C, revealed healed patella fracture. Orders: Orders XR knee RT 2V Today M25.569 - Pain in unspecified knee Patient Instructions: Scribed for Ada Mcpherson PA-C by Teresa Headley medical record administrator, on 12/19/2022 at 9:47 am, EST. Coding Level of Care Code Global (64781) Diagnoses Right patella fracture S82.001A
== END 2022-12-19 10:24 | disposition home or self-care (01) ==
PROVIDERS: PCP Internal Medicine; Visit Provider Physician Assistant
DX: S82.001A Unspecified fracture of right patella, initial encounter for closed fracture (principal)
CPT/HCPCS: 99213

== ENCOUNTER 2023-01-05 08:11 | Observation (INO) | payer MEDICARE, OTHER, SELFPAY ==
[2023-01-05] VITALS (9 sets, daily range): BP systolic 130–162; BP diastolic 59–82; PULSE 59–68; RESP 11–18; TEMP 36.1–36.8; O2SAT 96–97; BMI 33.6
--- NOTE | ~2023-01-05 | CT_ITS ---
EXAMINATION: CT HEAD WITHOUT CONTRAST CLINICAL INFORMATION: Headache. Nausea. COMPARISON: 01/05/2017 TECHNIQUE: Contiguous axial imaging was performed from the skull base to vertex without intravenous administration of contrast. This CT examination was performed using dose optimization techniques as appropriate, variously including the following: *Automated exposure control *Adjustment of mA and/or kV according to patient size (this includes techniques or standardized protocols for targeted exams where dose is matched to indication/reason for exam; i.e. extremities or head) *Use of iterative reconstruction technique DLP: 584 mGy-cm FINDINGS: There is no evidence of acute intracranial hemorrhage or territorial infarction. No mass effect or midline shift is seen. Champion to white matter differentiation is well preserved. No extra-axial fluid collections are identified. No hydrocephalus. The osseous structures and soft tissues are unremarkable. The mastoid air cells and visualized portions of the paranasal sinuses are well aerated. CT/CT head/brain wo IV con IMPRESSION: No acute intracranial pathology.
--- NOTE | ~2023-01-05 | MR_ITS ---
EXAMINATION: MR BRAIN WITHOUT AND WITH CONTRAST CLINICAL INFORMATION: Vertigo COMPARISON: MRA head 10/10/[address] head 01/05/2023 TECHNIQUE: Multiplanar, multisequence imaging was obtained without and with intravenous contrast. Intravenous contrast: 7.5 mL Gadavist. FINDINGS: The VII and VIII cranial nerve complexes are normal in course and caliber. No signal abnormality is visualized within the inner ear structures on the precontrast axial T1-weighted sequence. Fluid signal is preserved within the cochlea, semicircular canals, and vestibule on the high-resolution axial FIESTA sequence. There is no abnormal labyrinthine or intracanalicular enhancement on postcontrast imaging. No cerebellopontine angle lesion. No acute infarct. No acute intracranial hemorrhage or extra-axial fluid collection. Mild age-appropriate generalized parenchymal volume loss. Stable few scattered T2 hyperintense foci in the subcortical and periventricular white matter, nonspecific but presumably mild chronic microangiopathy. Incidental bilateral choroid plexus cysts.No abnormal intraparenchymal or leptomeningeal enhancement. No mass effect or herniation pattern. Normal appearance of the midline structures. Normal intracranial arterial and dural venous sinus flow voids. Bilateral lens replacements. The paranasal sinuses and mastoids are well aerated. The craniocervical junction is intact. Normal marrow signal. MR/MR head/brain wo/w con IMPRESSION: No retrocochlear pathology. No acute intracranial process or pathologic intracranial enhancement.
--- NOTE | ~2023-01-05 | XR_ITS ---
EXAMINATION: XR CHEST CLINICAL INFORMATION: Nausea and dizziness COMPARISON: Previous chest x-ray January 2021 TECHNIQUE: Frontal view of the chest was obtained. FINDINGS: No significant abnormality is noted involving the heart, lungs, mediastinum, bony thorax or soft tissues. XR/XR chest 1V IMPRESSION: Unremarkable examination.
[2023-01-05 08:37] LABS: MANUAL DIFF FLAG NO
[2023-01-05 08:40] LABS: Basophils Percent Auto 0.3 % (0-2); Eosinophils Percent Auto 0.3 % (0-4); Hematocrit 42.6 % (37.0-47.0); Hemoglobin 14.8 g/dl (12.0-16.0); Imm Gran Abs Auto 0.01 X10*3/uL (0.00-0.03); Imm Gran Pct Auto 0.2 % (0.0-0.4); Lymphocytes Absolute Auto 1.9 X10*3/uL (1.2-4.9); Lymphocytes Percent Auto 31.8 % (20-40); Mean Corpuscular HGB Conc 34.7 g/dl (31.0-35.0); Mean Corpuscular Hemoglobin 30.5 pg (27.0-33.0); Mean Corpuscular Volume 87.7 fL (80.0-98.0); Mean Platelet Volume 12.9 fL (9.4-12.3); Monocytes Absolute Auto 0.4 X10*3/uL (0.1-1.2); Neutrophils Absolute Auto 3.7 x10*3/uL (2.0-8.3); Neutrophils Percent Auto 61.4 % (45-73); Platelet Count 153 X10*3/uL (160-400); Red Blood Count 4.86 X10*6/uL (4.20-5.50); Red Cell Distribution Width 12.9 % (11.0-16.0)
[2023-01-05 08:59] LABS: Alanine Aminotransferase 16 U/L (0-31); Albumin Level 3.9 g/dL (3.5-5.0); Alkaline Phosphatase 87 U/L (39-117); Anion Gap 14 (12-20); Aspartate Amino Transferase 20 U/L (5-31); Bilirubin Total 0.6 mg/dL (0.0-1.0); Blood Urea Nitrogen 14 mg/dL (9-16); Carbon Dioxide 21 mmol/L (22-29); Chloride 110 mmol/L (96-108); Creatinine Clr Calc Pharmacy 73.3; Estimated Glomerular Filt Rate > 60; Glucose Random 109 mg/dL (60-115); Potassium 3.9 mmol/L (3.3-5.1); Sodium 141 mmol/L (135-145); Total Protein 6.7 g/dL (6.5-8.0)
--- NOTE | 2023-01-05 09:09 | ECG_ITS ---
Test Reason : DIZZINESS Blood Pressure : / mmHG Vent. Rate : 060 BPM Atrial Rate : 060 BPM P-R Int : 154 ms QRS Dur : 082 ms QT Int : 382 ms P-R-T Axes : 057 004 026 degrees QTc Int : 382 ms Normal sinus rhythm Nonspecific T wave abnormality Abnormal ECG When compared with ECG of 31-AUG-2017 22:37, No significant change was found Referred By: Charlene Amaro Electronically Signed By:EVELIA ELLIOTT
[2023-01-05] MEDS: 0.9 % Sodium Chloride 1,000 ML 999 ML IV (09:19)
[2023-01-05] MEDS: Meclizine HCl 25 MG TABLET PO (09:19)
[2023-01-05] MEDS: ondansetron HCL 4 MG/2 ML VIAL IVPUSH (09:19)
--- NOTE | 2023-01-05 09:20 | PC.NURSE ---
alert and oriented, respirations even and unlabored. iv established, labs drawn and sent. medicated per the MAR, fluids infusing at this time. awaiting CT scan
[2023-01-05 09:28] LABS: Lipase 44 U/L (8-78); Magnesium 2.3 mg/dL (1.6-2.6)
[2023-01-05 09:32] LABS: Prothrombin Time 11.9 SEC (11.1-13.3)
[2023-01-05 09:34] LABS: Troponin-I High Sensitivity < 2.7 ng/L (<3.5-17.0)
--- NOTE | 2023-01-05 09:38 | ED_ITS ---
HPI - General Adult General Chief complaint: Nausea/Vomiting/Diarrhea Stated complaint: DIZZY,NAUSEA,VOMITING SINCE LAST NOC Time Seen by Provider: 01/05/23 08:36 Source: patient, EMS, RN notes reviewed and old records reviewed Mode of arrival: EMS Limitations: no limitations History of Present Illness HPI narrative: 77 year old female with history of hiatal hernia followed by GI, esophageal dysmotility on pantoprazole, MDD, asthma, presents to ED for evaluation of dizziness/lightheadedness, abdominal discomfort/bloating, nausea, & vomiting x last night. Describes dizziness as feeling lightheaded/faint but worse w/position changes & head movement, admits TV looked fuzzy last night, visual changes resolved at present. Also reports assoc nausea & vomiting, emesis x4-5 episodes. Also endorses mild headache. Notes that she had a large dinner including pasta salad topped with tuna last night which shes concerned caused symptoms. Last BM was this morning and normal. Denies hematemesis, diarrhea, constipation, fevers, chills, URI symptoms, chest pain, shortness of breath, back pain, urinary symptoms, lower extremity pain, or numbness or tingling in extremities. Denies recent travel, sick contacts. Last colonoscopy was normal. No abdominal surgeries. Onset (ago): day(s) (1) Treatments prior to arrival: other (Tylenol) Related Data Home Medications Medication Instructions Recorded Confirmed calcium carbonate 600 mg-vitamin 1 cap PO DAILY 02/02/21 01/05/23 D3 12.5 mcg (500 unit) capsule (Calcium 600 with Vitamin D3) multivitamin (Daily Multi-Vitamin 1 tab PO DAILY 02/02/21 01/05/23 tablet) fluticasone furoate 100 1 inh inhalation DAILY 08/29/22 01/05/23 mcg-vilanterol 25 mcg/dose inhalation powder (Breo Ellipta) acetaminophen 325 mg tablet 650 mg PO Q6H PRN Headache 01/05/23 01/05/23 docusate sodium 100 mg tablet 100 mg PO DAILY PRN Constipation 01/05/23 01/05/23 Previous Rx's Medication Instructions Recorded albuterol sulfate 90 mcg/actuation 2 puff inhalation Q6H PRN 03/12/22 aerosol inhaler (ProAir HFA) shortness of breath or wheezing #8.5 grams pantoprazole 40 mg tablet,delayed 40 mg PO DAILY #90 tabs 04/16/22 release duloxetine 60 mg capsule,delayed 60 mg PO DAILY #90 caps 07/25/22 release Allergies Allergy/AdvReac Type Severity Reaction Status Date / Time No Known Allergies Allergy Verified 12/19/22 09:56 [No Known Allergies*] Review of Systems 2 Review of Systems: Constitutional: No Fever, No Chills, No Night Sweats, + Fatigue, No Malaise ENT/Mouth: No Hearing loss, No Ear Pain, No Nasal Congestion, No Sinus Pain, No Hoarseness, No sore throat, No Rhinorrhea, No Swallowing Difficulty Eyes: No Eye Pain, No Swelling, No Discharge, + Vision Changes (brief/resolved) Cardiovascular: No Chest Pain, No SOB, No Edema, No Palpitations Respiratory: No Cough, No Sputum, No Wheezing, No Smoke Exposure, No Dyspnea Gastrointestinal: No Nausea, No Vomiting, No Diarrhea, No Constipation, No Abdominal pain, No Hematochezia, No Melena Genitourinary: No Dysuria, No Urinary Frequency, No Hematuria, No Urinary Incontinence/retention, No Flank Pain Musculoskeletal: No joint pain, No Myalgias, No Joint Swelling Skin: No Skin Lesions, No rash Neuro: No Weakness, No Numbness, No Paresthesias, No Loss of Consciousness, + lightheaded/ Dizziness, + Headache Yes all other systems are reviewed and are negative Constitutional: Constitutional: Reports as per [facility] Past Medical History Attestation statement: The following information was validated with the patient. Source: old records reviewed Medical History Depression, major, in remission Environmental and seasonal allergies Hiatal hernia with GERD Impaired fasting glucose Mild intermittent asthma in adult without complication Osteopenia of multiple sites Skin lesion of face Tubular adenoma of colon Surgical History History of ankle surgery No pertinent past surgical history Family History Family History Sister Thyroid disorder Sister Breast cancer Father Leukemia Maternal Aunt Breast cancer Paternal Aunt Bone cancer Social History Social History Housing: House Alcohol intake: current Alcohol intake frequency: a few times a week Patient Tobacco Use Status: Never used Tobacco e-Cigarette/Vaping Use: Never Used Second Hand Smoke Exposure: No Advance Directives: Yes Advance Directives on File: Yes Advance Directives Date on File: 03/12/22 Current occupational status: employed Current occupation: working part-time at [employer] Current occupational exposures/hazards: No Cognitive needs: No Hearing needs: No Vision needs: Yes Physical Exam ED Vital Signs: Vital Signs - 24 hr 01/05/23 08:25 01/05/23 10:08 01/05/23 10:11 Temperature 98.0 F Pulse Rate 67 62 61 Respiratory Rate 18 Blood Pressure 156/59 H 143/59 H 162/71 H Pulse Oximetry 97 Oxygen Delivery Method Room Air 01/05/23 10:12 01/05/23 10:35 01/05/23 12:29 Temperature 98.3 F Pulse Rate 65 68 62 Respiratory Rate 12 12 Blood Pressure 137/60 130/67 152/62 H Pulse Oximetry 97 Oxygen Delivery Method Room Air BMI result Body Mass Index 33.6 Const General: cooperative, healthy appearing, comfortable and no acute distress Nutritional Appearance: overweight Orientation/consciousness: patient oriented x3 Limitations: no limitations HENMT Head: Yes normal to inspection and Yes atraumatic Ears: hearing grossly normal bilaterally and external ears normal General nose exam: Normal external nose present Face and sinus: Yes normal facial exam Throat: Yes posterior oropharynx normal, Yes tonsils normal and Yes uvula midline Eyes General: appearance normal, both eyes and all related structures EOM: Nystagmus present Neck Neck: Yes normal visual inspection and Yes no meningeal signs Resp Effort & Inspection: normal respiratory effort and able to speak in complete sentences Auscultation: clear to auscultation bilaterally Cardio Rate: regular rate Rhythm: regular rhythm Heart sounds: S1 normal heart sound present and S2 normal heart sound present GI Inspection: Yes normal to inspection Palpation (GI): Soft to palpation, nontender, no guarding and No Rebound tenderness present Auscultation: normal bowel sounds General: Yes no CVA tenderness Back/Spine/Pelvis Back: no CVA tenderness Skin Other: Percival, warm, dry. Rashes: no rashes Wounds: no wounds Neuro General: patient oriented x3, tone normal, moves all extremities, no meningeal signs, no focal motor deficits and CN's II-XI intact bilaterally Cranial nerves: Yes CN's II-XII intact bilaterally, Yes Bilaterally intact EOM present and Yes Nystagmus present horizontal fast component to the left Motor exam (neuro): 5/5 motor strength present throughout, Pronator motor function not present and no tremor noted Extrem General: Yes no pedal edema and Yes no calf tenderness Course Course Course Narrative: -1043-labs reassuring, troponin negative -UA negative CT head/brain wo IV con IMPRESSION: No acute intracranial pathology. -orthostatic vital signs negative -1134--on re-evaluation patient reports continued nausea and dizziness with head movement/position change. Patient ambulates with steady guarded gait without ataxia. -1314--on re-evaluation patient reports nausea has improved however still feels dizziness/lightheaded upon head movement and position change. Continues to ambulate with unsteady gait, does not feel safe for discharge home. Plan to admit for further management Medications Administered Generic Name Dose Route Start Last Admin Trade Name Freq PRN Reason Stop Dose Admin Enoxaparin Sodium 40 mg 01/05/23 16:00 01/05/23 15:34 Enoxaparin Sodium 40 Mg/0.4 Ml Syringe SUBCUT 40 mg Q24H JUSTIN Administration Discontinued Medications Generic Name Dose Route Start Last Admin Trade Name Freq PRN Reason Stop Dose Admin Aspirin 162 mg 01/05/23 15:21 01/05/23 15:33 Aspirin 81 Mg Tab.Chew PO 01/05/23 15:22 162 mg ONCE ONE Administration Diphenhydramine HCl 12.5 mg 01/05/23 10:37 01/05/23 11:44 Diphenhydramine Hcl 50 Mg/Ml Vial IVPUSH 01/05/23 10:38 12.5 mg ONCE ONE Administration Sodium Chloride 1,000 mls @ 999 mls/hr 01/05/23 09:15 01/05/23 11:43 Ns IV 01/05/23 10:15 Infused .Q1H1M JUSTIN Infusion Lorazepam 1 mg 01/05/23 10:37 01/05/23 11:44 Lorazepam 1 Mg Tablet PO 01/05/23 10:38 1 mg ONCE ONE Administration Meclizine HCl 25 mg 01/05/23 09:09 01/05/23 09:19 Meclizine Hcl 25 Mg Tablet PO 01/05/23 09:10 25 mg ONCE ONE Administration Ondansetron HCl 4 mg 01/05/23 09:09 01/05/23 09:19 Ondansetron Hcl 4 Mg/2 Ml Vial IVPUSH 01/05/23 09:10 4 mg ONCE ONE Administration Medical Decision Making Medical Decision Making [facility] Narrative: 77 year old female with history of hiatal hernia followed by GI, esophageal dysmotility on pantoprazole, MDD, asthma, presents to ED for evaluation of dizziness/lightheadedness, abdominal discomfort/bloating, nausea, & vomiting x last night. VSS. Physical exam notable for horizontal fatigable nystagmus with left lateral gaze. Abdomen soft, nontender. No CVAT. No focal neuro deficits. Concern for BPPV vs orthostasis vs metabolic/infectious etiologies vs atypical ACS vs viral gastroenteritis. Lower concern for CVA/TIA, IC mass, appendicitis/diverticulitis without tenderness on exam, UTI, or pancreatitis. Plan: EKG, labs, head CT without contrast, orthostatic vitals, IVF, Meclizine, reassess Differential Diagnosis Differential Diagnoses: The differential diagnosis associated with the presentation includes ACS, viral gastroenteritis, CVA, UTI, pancreatitis Admission/Observation Consideration of admission/observation: Escalation of care including admission/observation considered Lab Data [facility] Lab Attestation statement: I reviewed the patient's lab results. 01/05/23 08:34 01/05/23 08:34 Labs: Lab Results 01/05/23 01/05/23 01/05/23 Range/Units 08:34 09:16 10:20 WBC 6.0 (4.8-10.8) X10*3/uL RBC 4.86 (4.20-5.50) X10*6/uL Hgb 14.8 (12.0-16.0) g/dl Hct 42.6 (37.0-47.0) % MCV 87.7 (80.0-98.0) fL MCH 30.5 (27.0-33.0) pg MCHC 34.7 (31.0-35.0) g/dl RDW 12.9 (11.0-16.0) % Plt Count 153 L (160-400) X10*3/uL MPV 12.9 H (9.4-12.3) fL Immature Gran % (Auto) 0.2 (0.0-0.4) % Neut % (Auto) 61.4 (45-73) % Lymph % (Auto) 31.8 (20-40) % [place] % (Auto) 6.0 (2-11) % Eos % (Auto) 0.3 (0-4) % Baso % (Auto) 0.3 (0-2) % Lymph # (Auto) 1.9 (1.2-4.9) X10*3/uL [place] # (Auto) 0.4 (0.1-1.2) X10*3/uL Eos # (Auto) 0.0 (0.0-0.4) X10*3/uL Baso # (Auto) 0.0 (0.0-0.2) X10*3/uL Abs Immat Gran (auto) 0.01 (0.00-0.03) X10*3/uL Absolute Neuts (auto) 3.7 (2.0-8.3) x10*3/uL Absolute Nucleated RBC 0.000 (0.0-0.012) X10*3/uL Nucleated RBC % (auto) 0.0 (0.0-0.2) /100WBC PT 11.9 (11.1-13.3) SEC INR 1.0 (0.9-1.1) Sodium 141 (135-145) mmol/L Potassium 3.9 (3.3-5.1) mmol/L Chloride 110 H (96-108) mmol/L Carbon Dioxide 21 L (22-29) mmol/L Anion Gap 14 (12-20) BUN 14 (9-16) mg/dL Creatinine 0.77 (0.5-1.4) mg/dL Estim Creat Clear Calc 73.3 Estimated GFR > 60 Random Glucose 109 (60-115) mg/dL Calcium 9.0 (8.4-10.2) mg/dL Magnesium 2.3 (1.6-2.6) mg/dL Total Bilirubin 0.6 (0.0-1.0) mg/dL AST 20 (5-31) U/L ALT 16 (0-31) U/L Alkaline Phosphatase 87 (39-117) U/L Troponin I High Sens < 2.7 (<3.5-17.0) ng/L Total Protein 6.7 (6.5-8.0) g/dL Albumin 3.9 (3.5-5.0) g/dL Triglycerides (<150) mg/dL Cholesterol (<200) mg/dL LDL Cholesterol, Calc (<100) mg/dL HDL Cholesterol (>40) mg/dL Lipase 44 (8-78) U/L Urine Color Yellow Urine Appearance Clear Urine pH >= 9.0 (5.0-9.0) Ur Specific [place] 1.020 (1.005-1.025) Urine Protein Trace (Neg-Trace) mg/dL Urine Glucose (UA) Negative (Negative) mg/dL Urine Ketones Trace (Negative) mg/dL Urine Blood Negative (Negative) Urine Nitrite Negative (Negative) Ur Leukocyte Esterase Negative (Negative) 01/05/23 Range/Units 11:47 WBC (4.8-10.8) X10*3/uL RBC (4.20-5.50) X10*6/uL Hgb (12.0-16.0) g/dl Hct (37.0-47.0) % MCV (80.0-98.0) fL MCH (27.0-33.0) pg MCHC (31.0-35.0) g/dl RDW (11.0-16.0) % Plt Count (160-400) X10*3/uL MPV (9.4-12.3) fL Immature Gran % (Auto) (0.0-0.4) % Neut % (Auto) (45-73) % Lymph % (Auto) (20-40) % [place] % (Auto) (2-11) % Eos % (Auto) (0-4) % Baso % (Auto) (0-2) % Lymph # (Auto) (1.2-4.9) X10*3/uL [place] # (Auto) (0.1-1.2) X10*3/uL Eos # (Auto) (0.0-0.4) X10*3/uL Baso # (Auto) (0.0-0.2) X10*3/uL Abs Immat Gran (auto) (0.00-0.03) X10*3/uL Absolute Neuts (auto) (2.0-8.3) x10*3/uL Absolute Nucleated RBC (0.0-0.012) X10*3/uL Nucleated RBC % (auto) (0.0-0.2) /100WBC PT (11.1-13.3) SEC INR (0.9-1.1) Sodium (135-145) mmol/L Potassium (3.3-5.1) mmol/L Chloride (96-108) mmol/L Carbon Dioxide (22-29) mmol/L Anion Gap (12-20) BUN (9-16) mg/dL Creatinine (0.5-1.4) mg/dL Estim Creat Clear Calc Estimated GFR Random Glucose (60-115) mg/dL Calcium (8.4-10.2) mg/dL Magnesium (1.6-2.6) mg/dL Total Bilirubin (0.0-1.0) mg/dL AST (5-31) U/L ALT (0-31) U/L Alkaline Phosphatase (39-117) U/L Troponin I High Sens < 2.7 (<3.5-17.0) ng/L Total Protein (6.5-8.0) g/dL Albumin (3.5-5.0) g/dL Triglycerides 64 (<150) mg/dL Cholesterol 143 (<200) mg/dL LDL Cholesterol, Calc 81 (<100) mg/dL HDL Cholesterol 50 (>40) mg/dL Lipase (8-78) U/L Urine Color Urine Appearance Urine pH (5.0-9.0) Ur Specific [place] (1.005-1.025) Urine Protein (Neg-Trace) mg/dL Urine Glucose (UA) (Negative) mg/dL Urine Ketones (Negative) mg/dL Urine Blood (Negative) Urine Nitrite (Negative) Ur Leukocyte Esterase (Negative) Independent Interpretation I performed an independent interpretation of an: EKG (EKG normal sinus rhythm at a rate of 60. SC interval 154. QTC 382. No significant change when compared to prior. No STEMI) Radiology Impression Discussion of test interpretation with radiology: I have reviewed the radiologist's reading. Independent Historian Clinical information obtained from an independent historian. History obtained from or confirmed by: EMS External Record Review External record reviewed: Inpatient record, Office record, Outpatient record, Prior outpatient labs, Prior outpatient radiology, Primary care record and Outside ED record Tests considered The following testing was considered but not selected: As above Prescription Management I considered prescription management with: Other (GERD, Asthma) Discharge Plan Discharge Clinical Impression: Dizziness, Nausea & vomiting Patient Disposition: Admitted As Inpatient
[2023-01-05 10:27] LABS: Appearance Urine Clear; Color Urine Yellow; Glucose Urine UA Negative (Negative); Leukocyte Esterase Urine Negative (Negative); Nitrite Urine Negative (Negative); PH >= 9.0 (5.0-9.0); Urine Blood Negative (Negative); Urine Ketones Trace mg/dL (Negative); Urine Protein Trace mg/dL (Neg-Trace)
--- NOTE | 2023-01-05 10:36 | PC.NURSE ---
pt continues to endorse nausea and dizziness
[2023-01-05] MEDS: LORazepam 1 MG TABLET PO (11:44)
[2023-01-05] MEDS: diphenhydrAMINE HCL 50 MG/ML VIAL 12.5 MG IVPUSH (11:44)
--- NOTE | 2023-01-05 12:05 | PC.NURSE ---
medicated per the MAR, pt still complaining of nausea. repeat troponin obtained.
[2023-01-05 12:46] LABS: Troponin-I High Sensitivity < 2.7 ng/L (<3.5-17.0)
--- NOTE | 2023-01-05 14:56 | PC.NURSE ---
attempted to walk with hospitalist and this rn in room. unsteady on feet, reporting dizziness with movement of her head. understanding need for admission at this time.
--- NOTE | 2023-01-05 15:00 | PHA.MEDREC ---
Pharmacy Consult ? Medication Reconciliation Pharmacy has completed the medication reconciliation. Patient reported medications, reports she does not always take the vitamins. Adriane Landaverde, PharmD
--- NOTE | 2023-01-05 15:22 | P.HPHOSP_ITS ---
History of Present Illness Date of Service: 01/05/23 Attending physician on admission: Deion Fam Chief Complaint: vertigo, n/v 77 year old female with history asthma, osteopenia, impaired fasting glucose, major depressive disorder, and GERD presented to the ED earlier today for evaluation of vertigo. She reports last night while watching television, she developed some blurred vision associated with room spinning dizziness as well as nausea with recurrent episodes of vomiting. Symptoms persisted through the night so she presented to the ED for further evaluation. She does tell me that she did try Unisom to sleep for the 1st time 2 nights ago and has been under increased stress over the last few weeks. On arrival, vital signs stable. Hematology studies unremarkable. Renal function normal, electrolyte levels normal. Troponin levels undetectable. Cholesterol levels normal with total cholesterol 143, LDL 81, HDL 50. Urinalysis unremarkable. Head CT negative for any acute intracranial abnormality. EKG showed normal sinus rhythm, rate 60 with nonspecific T-wave abnormality, no ST or depressions. In the ED, was noted to have horizontal nystagmus with unsteady gait that did not improve following meclizine, lorazepam, and Benadryl. Review of Systems 2 Review of Systems: General: No fevers, malaise, unintentional weight loss HEENT: No blurred vision, diplopia. No sore throat, nasal congestion, rhinorrhea, sinus pain, ear pain Cardiovascular: No chest pain, palpitations, or leg edema Respiratory: No shortness of breath, wheezing, cough GI: +nausea, +vomiting. No abdominal pain, diarrhea, constipation, melena, hematochezia : No dysuria, hematuria, increased urinary frequency, decreased urinary output MSK: No myalgia, back pain Neuro: No headaches, weakness, paresthesias. +vertigo, +unsteady gait. Skin: No rashes or lesions [facility] Medical History Hiatal hernia with GERD Depression, major, in remission Skin lesion of face Impaired fasting glucose Tubular adenoma of colon Osteopenia of multiple sites Environmental and seasonal allergies Mild intermittent asthma in adult without complication Family History Sister Thyroid disorder Sister Breast cancer Father Leukemia Maternal Aunt Breast cancer Paternal Aunt Bone cancer Surgical History History of ankle surgery No pertinent past surgical history Social History Housing: House Alcohol intake: current Alcohol intake frequency: a few times a week Patient Tobacco Use Status: Never used Tobacco e-Cigarette/Vaping Use: Never Used Second Hand Smoke Exposure: No Advance Directives: Yes Advance Directives on File: Yes Advance Directives Date on File: 03/12/22 Current occupational status: employed Current occupation: working part-time at [employer] Current occupational exposures/hazards: No Cognitive needs: No Hearing needs: No Vision needs: Yes Meds Allergies Allergy/AdvReac Type Severity Reaction Status Date / Time No Known Allergies Allergy Verified 12/19/22 09:56 [No Known Allergies*] Active Medications: Current Medications Acetaminophen (Acetaminophen 325 Mg Tablet) 650 mg PO Q6H PRN PRN Reason: Pain, Mild (Pain Scale 1-3) Albuterol Sulfate (Albuterol Sulfate 90 Mcg 8 Gm Inhaler) 2 puff INHALE Q6H PRN PRN Reason: shortness of breath or wheezing Calcium Carbonate/Cholecalciferol (Calcium + Vitamin D 250 Mg Tablet) 250 mg PO DAILY [facility] Docusate Sodium (Docusate Sodium 100 Mg Capsule) 100 mg PO DAILY PRN PRN Reason: Constipation Duloxetine HCl (Duloxetine Hcl 60 Mg Capsule.Dr) 60 mg PO DAILY [facility] Enoxaparin Sodium (Enoxaparin Sodium 40 Mg/0.4 Ml Syringe) 40 mg SUBCUT Q24H [facility] Fluticasone/Vilanterol (Fluticasone/Vilanterol 100/25 Blst.W.Dev) 1 puff INHALE RDAILY [facility] Meclizine HCl (Meclizine Hcl 25 Mg Tablet) 25 mg PO Q8H PRN PRN Reason: Vertigo Multivitamins/Vitamin C (Multivitamin Tablet) 1 tab PO DAILY [facility] Omeprazole (Omeprazole 20 Mg Capsule.Dr) 20 mg PO DAILY@0630 [facility] Ondansetron HCl (Ondansetron Hcl 4 Mg/2 Ml Vial) 4 mg IVPUSH Q8H PRN PRN Reason: Nausea and Vomiting Sodium Chloride (0.9 % Sodium Chloride Flush 3 Ml Syringe) 3 ml IVFLUSH QSHIFT [facility] Home Medications Medication Instructions Recorded Confirmed Last Taken Type calcium carbonate 600 mg-vitamin 1 cap PO DAILY 02/02/21 01/05/23 Unknown History D3 12.5 mcg (500 unit) capsule (Calcium 600 with Vitamin D3) multivitamin (Daily Multi-Vitamin 1 tab PO DAILY 02/02/21 01/05/23 Unknown History tablet) fluticasone furoate 100 1 inh inhalation DAILY 08/29/22 01/05/23 01/04/23 History mcg-vilanterol 25 mcg/dose inhalation powder (Breo Ellipta) acetaminophen 325 mg tablet 650 mg PO Q6H PRN Headache 01/05/23 01/05/23 Unknown History docusate sodium 100 mg tablet 100 mg PO DAILY PRN Constipation 01/05/23 01/05/23 Unknown History Physical Exam 2 Vital Signs and Narrative: Vital Signs: Last Vital Signs Temp 98.3 F 01/05/23 10:35 Pulse 62 01/05/23 12:29 Resp 12 01/05/23 12:29 BP 152/62 H 01/05/23 12:29 Pulse Ox 97 01/05/23 10:35 O2 Del Method Room Air 01/05/23 10:35 BMI result Body Mass Index 33.6 Constitutional - Awake and Alert, No apparent distress Eyes - PERRLA, EOMI Ears-external ears normal, canals clear, TMs pearly chi and intact Cardiovascular - S1S2, RRR, No edema Respiratory - Normal lung expansion, Normal respiratory effort, No respiratory distress, CTA bilaterally Gastrointestinal - NT / ND; +BS; No rebound or guarding Extremities - no calf tenderness bilaterally, no swelling Skin - Warm/Dry Neurological - Alert & oriented x3, left-sided horizontal nystagmus, otherwise CN II-XII in tact, 5/5 strength BUE and BLE, negative romberg. unsteady gait with near falls, no ataxia Psychological - Appropriate affect Results Labs 01/05/23 08:34 01/05/23 08:34 Labs: Laboratory Results - last 24 hr 01/05/23 01/05/23 01/05/23 08:34 09:16 10:20 MCV 87.7 MCH 30.5 MCHC 34.7 RDW 12.9 Plt Count 153 L MPV 12.9 H Immature Gran % (Auto) 0.2 Neut % (Auto) 61.4 Lymph % (Auto) 31.8 [place] % (Auto) 6.0 Eos % (Auto) 0.3 Baso % (Auto) 0.3 Lymph # (Auto) 1.9 [place] # (Auto) 0.4 Eos # (Auto) 0.0 Baso # (Auto) 0.0 Abs Immat Gran (auto) 0.01 Absolute Neuts (auto) 3.7 Absolute Nucleated RBC 0.000 Nucleated RBC % (auto) 0.0 PT 11.9 INR 1.0 Anion Gap 14 Estim Creat Clear Calc 73.3 Estimated GFR > 60 Random Glucose 109 Calcium 9.0 Magnesium 2.3 Total Bilirubin 0.6 AST 20 ALT 16 Alkaline Phosphatase 87 Total Protein 6.7 Albumin 3.9 Lipase 44 Urine Color Yellow Urine Appearance Clear Urine pH >= 9.0 Ur Specific [place] 1.020 Urine Protein Trace Urine Glucose (UA) Negative Urine Ketones Trace Urine Blood Negative Urine Nitrite Negative Ur Leukocyte Esterase Negative Imaging Radiologist's Impressions: Impressions Head CT 01/05/23 09:43 IMPRESSION: No acute intracranial pathology. Chest X-Ray 01/05/23 12:35 IMPRESSION: Unremarkable examination. Assessment and Plan (1) Nausea & vomiting: Status: Acute (2) Vertigo: Status: Acute Plan 77 year old female with history asthma, osteopenia, impaired fasting glucose, major depressive disorder, and GERD to be observed for intractable vertigo. #Intractable vertigo with nausea/vomiting and gait instability -Peripheral vs central etiology. cannot rule out stroke at this time. not a tpa candidate -Head CT negative -passed nursing swallow eval -ASA 162 mg given. Continue ASA 81 mg daily -lipid panel completed. Initiate atorvastatin 40 mg daily -MRI brain ordered -neuro checks -neurology consult -PT/OT evaluation -monitor on telemetry # mild persistent asthma -no acute exacerbation -continue maintenance inhalers, albuterol p.r.n. # mood disorder -continue home meds # GERD -continue PPI DVT prophylaxis-Lovenox Full code Time Spent With Patient Time: Total time managing care of this patient today ____ minutes. Quality Stroke Does the patient have a stroke diagnosis?: No VTE Prior VTE?: No VTE Risk Level:: Medical - moderate - high VTE Device Contraindication: Treatment Not Indicated VTE Drug Contraindication: N/A - Med Ordered
[2023-01-05] MEDS: Aspirin 81 MG TAB.CHEW 162 MG PO (15:33)
[2023-01-05] MEDS: Enoxaparin Sodium 40 MG/0.4 ML SYRINGE SUBCUT (15:34)
[2023-01-05 15:40] LABS: Cholesterol 143 mg/dL (<200); HDL Cholesterol 50 mg/dL (>40); LDL Cholesterol Calculated 81 mg/dL (<100); Triglycerides 64 mg/dL (<150)
--- NOTE | 2023-01-05 15:54 | PC.NURSE ---
MRI screening form completed and faxed to pharmacy
--- NOTE | 2023-01-05 15:56 | PC.NURSE ---
ambulated to the bathroom with one assist, reported dizziness. unsteady on feet, needs assistance to bathroom
[2023-01-05] MEDS: 0.9 % Sodium Chloride Flush 3 ML SYRINGE IVFLUSH ×2 (15:58→19:10)
[2023-01-05] MEDS: gadobutroL 7.5 ML VIAL IVPUSH (18:26)
[2023-01-06 03:18] VITALS: BP 123/59; PULSE 57; RESP 18; TEMP 36.4; O2SAT 98
[2023-01-06 06:12] LABS: MANUAL DIFF FLAG NO
[2023-01-06 06:18] LABS: Basophils Percent Auto 0.4 % (0-2); Eosinophils Absolute Auto 0.1 X10*3/uL (0.0-0.4); Eosinophils Percent Auto 1.1 % (0-4); Hematocrit 42.9 % (37.0-47.0); Hemoglobin 14.4 g/dl (12.0-16.0); Imm Gran Abs Auto 0.02 X10*3/uL (0.00-0.03); Imm Gran Pct Auto 0.4 % (0.0-0.4); Lymphocytes Absolute Auto 2.3 X10*3/uL (1.2-4.9); Lymphocytes Percent Auto 40.7 % (20-40); Mean Corpuscular HGB Conc 33.6 g/dl (31.0-35.0); Mean Corpuscular Hemoglobin 30.3 pg (27.0-33.0); Mean Corpuscular Volume 90.3 fL (80.0-98.0); Monocytes Absolute Auto 0.5 X10*3/uL (0.1-1.2); Monocytes Percent Auto 8.6 % (2-11); Neutrophils Absolute Auto 2.8 x10*3/uL (2.0-8.3); Neutrophils Percent Auto 48.8 % (45-73); Platelet Count 129 X10*3/uL (160-400); Red Blood Count 4.75 X10*6/uL (4.20-5.50); Red Cell Distribution Width 13.2 % (11.0-16.0); White Blood Count 5.7 X10*3/uL (4.8-10.8)
[2023-01-06] MEDS: Omeprazole 20 MG CAPSULE.DR PO (06:19)
[2023-01-06 06:30] LABS: Anion Gap 11 (12-20); Blood Urea Nitrogen 15 mg/dL (9-16); Calcium 8.8 mg/dL (8.4-10.2); Carbon Dioxide 23 mmol/L (22-29); Chloride 112 mmol/L (96-108); Cholesterol 159 mg/dL (<200); Creatinine Clr Calc Pharmacy 77.3; Estimated Glomerular Filt Rate > 60; Glucose Random 89 mg/dL (60-115); HDL Cholesterol 47 mg/dL (>40); LDL Cholesterol Calculated 88 mg/dL (<100); Potassium 3.9 mmol/L (3.3-5.1); Sodium 142 mmol/L (135-145); Triglycerides 121 mg/dL (<150)
--- NOTE | 2023-01-06 07:00 | CA_ITS ---
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 The calculated ejection fraction is 60% by biplane method. - No obvious valvular pathology seen on this study. Findings Procedure Information Contrast agent, definity, is being given per protocol without apparent complications. Left Ventricle Normal left ventricular cavity size. The left ventricular systolic function is normal. The calculated ejection fraction is 60% by biplane method. There is no evidence of regional wall motion abnormalities. Diastolic function is normal for age. There is mild septal asymmetric hypertrophy. Right Ventricle Normal right ventricular cavity size and systolic function. Atria Both atria are normal in size. Aortic Valve There is a normal trileaflet aortic valve. There is no aortic valve stenosis. There is trace (trivial) aortic valve regurgitation. Mitral Valve The mitral valve appears normal. There is no mitral valve regurgitation. There is no mitral valve stenosis. Pulmonic Valve The pulmonic valve is likely normal. Tricuspid Valve Normal tricuspid valve structure. There is mild tricuspid valve regurgitation. There is no evidence of pulmonary hypertension. Great Vessels The asc aorta is normal in size. Venous The inferior vena cava is normal in size and collapses greater than 50% with inspiration. Pericardium/Pleural There is no evidence of pericardial effusion. Prior Study Comparison No prior study available for comparison. Recommendations, Care & Conclusions No obvious valvular pathology seen on this study. Measurements 2D Linear Measurements IVSd: 1.20 0.6-0.9/0.6-1.0 cm LVIDd: 4.77 3.9-5.3/4.2-5.9 cm LVIDd Index: 2.27 2.4-3.2/2.2-3.1 cm/m2 LVIDs: 3.03 2.0-3.6 cm LVPWd: 0.95 0.7-1.1 cm LA Diam: 4.00 2.7-3.8/3.0-4.0 cm LAIDs Index: 1.90 1.5-2.3 cm/m2 LV Mass: 231.91 67-162/88-224 g LV Mass Index: 110.43 43-95/49-115 g/m2 LVOT Diam: 2.00 3.0+(-)1.3 cm 2D Systolic Function EF 4C: 56.90 >55% EF 2C: 65.70 >55% EF BiP: 60.40 >55% Mitral Valve MV Pk E: 0.59 MV PK A: 0.66 MV Decel Time: 222.00 E/A: 0.90 E'Lateral: 6.85 E'Medial: 5.44 E/E' Med: 10.80 E/E' Lat: 8.60 PHT: 65.00 MVA PHT: 3.38 Decel [place]: 2.66 Aortic Valve AoV Pk Pravin: 1.02 AoV Mn Pravin: 0.72 AoV VTI: 0.23 AoV Pk Grad: 4.00 Aov Mn Grad: 2.00 ALEC Cont.VTI: 2.86 LVOT LVOT Pk Pravin: 0.77 LVOT Mn Pravin: 0.54 LVOT VTI: 0.21 LVOT Pk Grad: 2.00 LVOT Mn Grad: 1.00 LVOT Diam: 2.00 LVOT Area: 3.14 Diastolic Function MV Pk E: 0.59 MV Pk A: 0.66 E/A: 0.90 E'Medial: 5.44 E/E' Med: 10.80 E' Laterial: 6.85 E/E' Lat: 8.60 Right Ventricle TAPSE (mm): 18.40 TVS' Pravin: 10.20 Tricuspid Valve TR Pk Pravin: 1.67 TR Pk Grad: 11.00 RA Press: 3.00 RVSP: 14.00 Great Vessels Aorta Sinus of Valsalva: 3.16 2.0-3.[address] [place]: 2.44 1.7-3.4 cm Ao Asc: 3.50 2.1-3.4 cm Updated in Other Vendor System with Status of Final David Mathews MD electronically signed on 01/06/2023 3:53:20 PM with status of Final
[2023-01-06] MEDS: 0.9 % Sodium Chloride Flush 3 ML SYRINGE IVFLUSH (07:18)
[2023-01-06 07:28] VITALS: BP 133/63; PULSE 59; RESP 16; TEMP 36.6; O2SAT 98
[2023-01-06] MEDS: Acetaminophen 325 MG TABLET 650 MG PO (09:00)
[2023-01-06] MEDS: Meclizine HCl 25 MG TABLET PO ×2 (09:00→14:26)
[2023-01-06] MEDS: DULoxetine HCl 60 MG CAPSULE.DR PO (09:00)
[2023-01-06] MEDS: Calcium + Vitamin D 250 MG TABLET PO (09:00)
[2023-01-06] MEDS: Multivitamin TABLET 1 TAB PO (09:01)
[2023-01-06] MEDS: Aspirin Enteric Coated 81 MG TABLET.DR PO (09:01)
--- NOTE | 2023-01-06 10:54 | MHC.CM.PN ---
Addendum entered by Zoila King 01/06/23 14:17: DP: PT HAS BEEN MEDICALLY CLEARED FOR DC HOME WITH NEW [facility] FOR P.T./O.T. FOR VESTIBULAR THERAPY. PT HAS OWN RIDE HOME Original Note: [facility] DELIVERED PT LIVES ALONE. USES A CANE/WALKER WHEN NEEDED. EMPLOYED P/T. + COVID VAX +HCP PCP DR. ALATORRE AT [facility] [place], NO SERVICES ANTICIPATED. PT HAS OWN RIDE HOME. CM WILL CONTINUE TO FOLLOW FOR ANY CHANGE IN DC PLAN/NEEDS
[2023-01-06] MEDS: Fluticasone/Vilanterol 100/25 BLST.W.DEV 1 PUFF INHALE (11:11)
[2023-01-06 11:13] VITALS: PULSE 66; RESP 18; O2SAT 98
[2023-01-06 12:00] VITALS: BP 111/78; PULSE 62; RESP 16; TEMP 36.3; O2SAT 98
--- NOTE | 2023-01-06 12:34 | P.PNIM_ITS ---
Subjective Subjective Date of Service: 01/06/23 Review of Systems Follow up vertigo still with some dizziness with movement Physical Exam 2 Vital Signs: Vital Signs: Last Vital Signs Temp 97.9 F 01/06/23 07:28 Pulse 66 01/06/23 11:13 Resp 18 01/06/23 11:13 BP 133/63 01/06/23 07:28 Pulse Ox 98 01/06/23 07:28 O2 Del Method Room Air 01/06/23 07:28 BMI result Body Mass Index 33.6 Appearing in no acute distress lung sounds are clear to auscultation heart regular rate rhythm, clear S1, S2 positive bowel sounds, abdomen is soft, nontender neuro patient is alert x3, no focal deficits Objective Data Active Medications Acetaminophen (Acetaminophen 325 Mg Tablet) 650 mg PO Q6H PRN PRN Reason: Pain, Mild (Pain Scale 1-3) Last Admin: 01/06/23 09:00 Dose: 650 mg Documented By: TISHA Albuterol Sulfate (Albuterol Sulfate 90 Mcg 8 Gm Inhaler) 2 puff INHALE Q6H PRN PRN Reason: shortness of breath or wheezing Aspirin (Aspirin Enteric Coated 81 Mg Tablet.) 81 mg PO DAILY [facility] Last Admin: 01/06/23 09:01 Dose: 81 mg Documented By: TISHA Atorvastatin Calcium (Atorvastatin Calcium 40 Mg Tablet) 40 mg PO DAILY [facility] Last Admin: 01/06/23 09:03 Dose: Not Given Documented By: TISHA Non-Admin Reason: Patient Refused Calcium Carbonate/Cholecalciferol (Calcium + Vitamin D 250 Mg Tablet) 250 mg PO DAILY [facility] Last Admin: 01/06/23 09:00 Dose: 250 mg Documented By: TISHA Docusate Sodium (Docusate Sodium 100 Mg Capsule) 100 mg PO DAILY PRN PRN Reason: Constipation Duloxetine HCl (Duloxetine Hcl 60 Mg Capsule.) 60 mg PO DAILY [facility] Last Admin: 01/06/23 09:00 Dose: 60 mg Documented By: TISHA Enoxaparin Sodium (Enoxaparin Sodium 40 Mg/0.4 Ml Syringe) 40 mg SUBCUT Q24H [facility] Last Admin: 01/05/23 15:34 Dose: 40 mg Documented By: FITO Fluticasone/Vilanterol (Fluticasone/Vilanterol 100/25 Blst.W.Dev) 1 puff INHALE RDAILY [facility] Last Admin: 01/06/23 11:11 Dose: 1 puff Documented By: UMBERTO Meclizine HCl (Meclizine Hcl 25 Mg Tablet) 25 mg PO Q8H PRN PRN Reason: Vertigo Meclizine HCl (Meclizine Hcl 25 Mg Tablet) 25 mg PO TID [facility] Last Admin: 01/06/23 09:00 Dose: 25 mg Documented By: TISHA Multivitamins/Vitamin C (Multivitamin Tablet) 1 tab PO DAILY [facility] Last Admin: 01/06/23 09:01 Dose: 1 tab Documented By: TISHA Omeprazole (Omeprazole 20 Mg Capsule.Dr) 20 mg PO DAILY@0630 [facility] Last Admin: 01/06/23 06:19 Dose: 20 mg Documented By: SHAHEED Ondansetron HCl (Ondansetron Hcl 4 Mg/2 Ml Vial) 4 mg IVPUSH Q8H PRN PRN Reason: Nausea and Vomiting Sodium Chloride (0.9 % Sodium Chloride Flush 3 Ml Syringe) 3 ml IVFLUSH QSHIFT [facility] Last Admin: 01/06/23 07:18 Dose: 3 ml Documented By: TISHA Labs 01/06/23 05:48 01/06/23 05:48 Labs: Laboratory Results - last 24 hr 01/05/23 01/06/23 11:47 05:48 MCV 90.3 MCH 30.3 MCHC 33.6 RDW 13.2 Plt Count 129 L MPV 13.0 H Immature Gran % (Auto) 0.4 Neut % (Auto) 48.8 Lymph % (Auto) 40.7 H [place] % (Auto) 8.6 Eos % (Auto) 1.1 Baso % (Auto) 0.4 Lymph # (Auto) 2.3 [place] # (Auto) 0.5 Eos # (Auto) 0.1 Baso # (Auto) 0.0 Abs Immat Gran (auto) 0.02 Absolute Neuts (auto) 2.8 Absolute Nucleated RBC 0.000 Nucleated RBC % (auto) 0.0 Anion Gap 11 L Estim Creat Clear Calc 77.3 Estimated GFR > 60 Random Glucose 89 Calcium 8.8 Triglycerides 64 121 Cholesterol 143 159 LDL Cholesterol, Calc 81 88 HDL Cholesterol 50 47 Assessment and Plan (1) Vertigo: Status: Acute Plan 77 year old female with history asthma, osteopenia, impaired fasting glucose, major depressive disorder, and GERD to be observed for intractable vertigo. Benign positional vertigo Normal MRI Physical therapy consultation Meclizine Vestibular therapy would be beneficial outpatient mild persistent asthma no acute exacerbation continue maintenance inhalers, albuterol p.r.n. mood disorder continue home meds GERD continue PPI DVT prophylaxis-Adi Attending Dr. Fam Full code Time Spent With Patient Time: Total time managing care of this patient today ____ minutes. Quality Stroke Does the patient have a stroke diagnosis?: No VTE Prior VTE?: No VTE Risk Level:: Medical - moderate - high VTE Device Contraindication: Treatment Not Indicated VTE Drug Contraindication: N/A - Med Ordered
--- NOTE | 2023-01-06 13:11 | W.MHC.F2F ---
Service Date Service Date: 01/06/23 Encounter Date of encounter: 01/06/23 Reasons for Services Signs and symptoms assessed: Benign positional vertigo Reason for physical therapy: home safety and mobility and therapeutic exercises Homebound: Leaving the home is medically contraindicated at this time without the asist of a device and/or another person due th the listed conditions above and below. Reason homebound: unsteady gait / fall risk Certification: Based on the above findings, I certify that this patient is confined to the home and needs intermittent senior living care, physical therapy and/or speech therapy, or continues to need occupational therapy. The patient is under my care, and I have initiated the establishment of the plan of care. The patient will be followed by a physician who will periodically review the plan of care. Time Spent With Patient Time: Total time managing care of this patient today ____ minutes.
--- NOTE | 2023-01-06 13:11 | PM.DS ---
DS: Providers Provider Date of Service: 01/06/23 Date of admission: 01/05/23 15:03 Primary care physician: Mei Edward MD Consults: 01/05/23 15:03 Consult to Neurology Routine Consulting Provider: [facility] Reason for consultation: intractable vertigo DS: Diagnosis Discharge Diagnosis (1) Vertigo: Status: Acute DS: Summary Hospital Course Hospital Course: History and physical as per admitting provider. 77 year old female with history asthma, osteopenia, impaired fasting glucose, major depressive disorder, and GERD presented to the ED earlier today for evaluation of vertigo. She reports last night while watching television, she developed some blurred vision associated with room spinning dizziness as well as nausea with recurrent episodes of vomiting. Symptoms persisted through the night so she presented to the ED for further evaluation. She does tell me that she did try Unisom to sleep for the 1st time 2 nights ago and has been under increased stress over the last few weeks. On arrival, vital signs stable. Hematology studies unremarkable. Renal function normal, electrolyte levels normal. Troponin levels undetectable. Cholesterol levels normal with total cholesterol 143, LDL 81, HDL 50. Urinalysis unremarkable. Head CT negative for any acute intracranial abnormality. EKG showed normal sinus rhythm, rate 60 with nonspecific T-wave abnormality, no ST or depressions. In the ED, was noted to have horizontal nystagmus with unsteady gait that did not improve following meclizine, lorazepam, and Benadryl. 77-year-old woman treated for benign positional vertigo. MRI negative for any acute abnormality or stroke. Patient was seen evaluated by Physical therapy hybrid maneuver performed, negative in Carmen Hallpike position for nystagmus. Mildly unsteady gait with resolution of dizziness. Patient feels significantly better. Plan for physical therapy evaluation at home for vestibular therapy. Mild persistent asthma. No exacerbation. Continue medications Mental health. Continue medications GERD. Continue PPI Time Spent with Patient Time attestation: Total time managing care of this patient today ____ minutes. Discharge coordination time: Greater than 30 minutes Quality: Safe Use of Opioids Does Pt have an Active Cancer Diagnosis on the Problem List?: No Quality: Stroke Does the patient have a stroke diagnosis?: No Physical Exam Vital Signs: Vital Signs: Last Vital Signs Temp 97.3 F 01/06/23 12:00 Pulse 62 01/06/23 12:00 Resp 16 01/06/23 12:00 BP 111/78 01/06/23 12:00 Pulse Ox 98 01/06/23 12:00 O2 Del Method Room Air 01/06/23 12:00 BMI result Body Mass Index 33.6 Appearing in no acute distress head is normocephalic atraumatic eyes pupils are PERRLA sclera is anicteric mouth throat mucous membranes are intact and moist neck is supple no lymphadenopathy, no JVD noted lung sounds are clear to auscultation heart regular rate rhythm, clear S1, S2 positive bowel sounds, abdomen is soft, nontender neuro patient is alert x3, no focal deficits DS: Data Data Completed and Pending Labs on day of discharge: Laboratory Results - last 24 hr 01/05/23 01/06/23 11:47 05:48 WBC 5.7 RBC 4.75 Hgb 14.4 Hct 42.9 MCV 90.3 MCH 30.3 MCHC 33.6 RDW 13.2 Plt Count 129 L MPV 13.0 H Immature Gran % (Auto) 0.4 Neut % (Auto) 48.8 Lymph % (Auto) 40.7 H [place] % (Auto) 8.6 Eos % (Auto) 1.1 Baso % (Auto) 0.4 Lymph # (Auto) 2.3 [place] # (Auto) 0.5 Eos # (Auto) 0.1 Baso # (Auto) 0.0 Abs Immat Gran (auto) 0.02 Absolute Neuts (auto) 2.8 Absolute Nucleated RBC 0.000 Nucleated RBC % (auto) 0.0 Sodium 142 Potassium 3.9 Chloride 112 H Carbon Dioxide 23 Anion Gap 11 L BUN 15 Creatinine 0.73 Estim Creat Clear Calc 77.3 Estimated GFR > 60 Random Glucose 89 Calcium 8.8 Triglycerides 64 121 Cholesterol 143 159 LDL Cholesterol, Calc 81 88 HDL Cholesterol 50 47 Discharge Plan Discharge Anticipated Discharge Date/Time: 01/06/23 13:07 Patient Disposition: Home Health Service Discharge Diagnosis: Benign positional vertigo Referrals: Mei Edward MD [Primary Care Provider] - 1 Week Discharge Medications: New meclizine 25 mg Tablet 25 mg PO TID Qty: 6 0RF Continued pantoprazole 40 mg tablet,delayed release (DR/EC) 40 mg PO DAILY Qty: 90 3RF duloxetine 60 mg capsule,delayed release(DR/EC) 60 mg PO DAILY Qty: 90 3RF acetaminophen 325 mg Tablet 650 mg PO Q6H PRN (Reason: Headache) docusate sodium 100 mg Tablet 100 mg PO DAILY PRN (Reason: Constipation) multivitamin [Daily Multi-Vitamin] Tablet 1 tab PO DAILY calcium carbonate-vitamin D3 [Calcium 600 with Vitamin D3] 600 mg(1,500mg) -500 unit capsule 1 cap PO DAILY albuterol sulfate [ProAir HFA] 90 mcg/actuation HFA aerosol inhaler 2 puff inhalation Q6H PRN (Reason: shortness of breath or wheezing) Qty: 8.5 3RF fluticasone furoate-vilanterol [Breo Ellipta] 100-25 mcg/dose blister with device 1 inh inhalation DAILY Discharge Orders: Discharge Order (Routine); Ordered 01/06/23 Ordered By: Nohemi Urbina Diet: Advance to usual diet Activity on Discharge: As tolerated Stand Alone Forms: Patient Portal Discharge page Care Plan Goals: Complete resolution of symptoms Health Concerns: Benign positional vertigo Plan of Treatment: Rest and drink plenty of fluids Follow-up with primary care provider as needed Take all medications as prescribed Assessment: See discharge summary
== END 2023-01-06 14:42 | disposition home health service (06) ==
LOC: HO.ED 13:18 → HO.EDOVER 15:09 → HO.S3 15:43
PROVIDERS: Physician Assistant; Admitting Provider Physician Assistant; Emergency Provider Student in an Organized Health Care Education/Training Program; PCP Internal Medicine; Visit Provider Nurse Practitioner Acute Care
DX: H81.10 Benign paroxysmal vertigo, unspecified ear (principal); K44.9 Diaphragmatic hernia without obstruction or gangrene; K21.9 Gastro-esophageal reflux disease without esophagitis; J45.20 Mild intermittent asthma, uncomplicated; R51.9 Headache, unspecified; F32.9 Major depressive disorder, single episode, unspecified; R11.2 Nausea with vomiting, unspecified; Z79.899 Other long term (current) drug therapy; Z23 Encounter for immunization; Z79.82 Long term (current) use of aspirin
CPT/HCPCS: 36415; 70450; 70553; 71045; 80048; 80053; 80061; 81003; 83690; 83735; 84484; 85025; 85610; 90471; 90686; 93005; 93306; 96361; 96372; 96374; 96375; 97162; 99221; 99285; A9585; J1200; J1650; J2405; Q9957

== ENCOUNTER 2023-01-05 15:03 | Outpatient (BNV) | payer MEDICARE, SELFPAY | END 2023-01-06 07:00 | PROVIDERS: Admitting Provider Physician Assistant; Emergency Provider Student in an Organized Health Care Education/Training Program; PCP Internal Medicine; Visit Provider Internal Medicine | DX: I36.1 Nonrheumatic tricuspid (valve) insufficiency (principal) | CPT/HCPCS: 93306 ==

== ENCOUNTER → 2023-01-05 15:03 | Outpatient (BNV) | payer MEDICARE, MEDICAID, SELFPAY | PROVIDERS: Admitting Provider Physician Assistant; Emergency Provider Student in an Organized Health Care Education/Training Program; PCP Internal Medicine; Visit Provider Physician Assistant | DX: R11.2 Nausea with vomiting, unspecified (principal); R42 Dizziness and giddiness | CPT/HCPCS: 99223; 99239; G0180 ==

== ENCOUNTER 2023-01-14 13:49 | Outpatient (RCR) | payer MEDICARE, OTHER, SELFPAY ==
[2023-01-14 14:07] VITALS: BP 137/63; PULSE 75
--- NOTE | 2023-01-14 14:55 | MHC.PT.EP ---
[facility] [place] Office [place] Office [place] Office [address] Shani Gould [address] [phone] F: [phone] F: [phone] F: [phone] F: [phone] Physical Therapy Plan of Care Date of Evaluation: 01/14/23 Date of Surgery: NA Diagnosis: Dizziness and giddiness Assessment: Slime is a 77 year old female who is referred to PT for dizziness and giddiness . She reports of having sudden onset of dizziness about 10 days back. Her symptoms caused nausea and vomiting and therefore she went to the ED. She was admitted overnight and was treated for BPPV in the hospital. Post d/c she has had no dizziness. Only reports of feeling unsteady with quick head turns, sit to stand and bending over. On PT examinations she presented with intact saccades, smooth pursuit, visual tracking, negative head thrust and VBI. She was negative for BPPV however had mildly impaired static and dynamic balance. She lives alone. 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 She would benefit from skilled PT to address the aforementioned impairments and improve tolerance functional activities. Frequency and Duration: The patient will be seen 1/week for 4 weeks. Short Term Goals: [facility] Goals: Patient to be educated on symptoms and indications to return to therapy when needed min 4 weeks. Pt will be negative for nystagmus or reports of vertigo in all diagnostic positions bilaterally to resolution of BPPV in 4 weeks. Patient to be able to functionally move in all planes and directions without provocation of dizziness to show return to PLOF in 4 weeks. Treatment Plan: Modalities to reduce pain, spasms and effusion. Manual therapy to restore motion and function. Therapeutic exercise to improve strength and flexibility. Neuromuscular re-education for posture and balance. Therapeutic activities to return to functional activities of daily living. Electronically signed by: Rachel Meadows PT DPT Please sign and return to therapist. Thank you for your referral.
--- NOTE | 2023-02-13 13:38 | MHC.PT.DC ---
[facility] [place] Office [place] Office [place] Office [address] 140 [facility] [phone] F: [phone] F: [phone] F: [phone] F: [phone] Physical Therapy Discharge Report Diagnosis: Dizziness and giddiness Date of Surgery: NA Date of Evaluation: 01/14/23 Date of Discharge: 02/13/23 Treatments to Date: 1 Cancellations to Date: 0 No Shows to Date: 0 Discharge Status: Discharge Summary: Slime has had no symptoms of vestibular dysfunction in over a month. She is therefore being d/c from PT. Electronically signed by: Rachel Meadows PT DPT Please sign and return to therapist. Thank you for your referral.
== END 2023-02-13 13:38 | disposition home or self-care (01) ==
LOC: HO.PT 13:49
PROVIDERS: PCP Internal Medicine; Visit Provider Internal Medicine
DX: R42 Dizziness and giddiness (principal)
CPT/HCPCS: 97112; 97161

== ENCOUNTER 2023-01-29 13:07 | Outpatient (REF) | payer MEDICARE, OTHER, SELFPAY | END 2023-01-29 13:08 | disposition home or self-care (01) | LOC: HO.MAMMO 13:07 | PROVIDERS: PCP Internal Medicine; Visit Provider Internal Medicine | DX: Z12.31 Encounter for screening mammogram for malignant neoplasm of breast (principal); Z13.820 Encounter for screening for osteoporosis; Z78.0 Asymptomatic menopausal state; M85.89 Other specified disorders of bone density and structure, multiple sites | CPT/HCPCS: 77063; 77067; 77080 ==

== ENCOUNTER → 2023-01-29 13:15 | Outpatient (BNV) | payer MEDICARE, SELFPAY | PROVIDERS: PCP Internal Medicine; Visit Provider Radiology Diagnostic Radiology | DX: Z12.31 Encounter for screening mammogram for malignant neoplasm of breast (principal) | CPT/HCPCS: 77063; 77067 ==

== ENCOUNTER 2023-03-17 09:42 | Outpatient (AMB) | payer MEDICARE, SELFPAY ==
--- NOTE | 2023-03-17 09:46 | MHC.PC.OV ---
Vital Signs 03/17/23 09:47 Height 5 ft 7 in Weight 219 lb 2 oz BMI 34.3 BP 126/72 Blood Pressure Location Lt brachial Position Sitting Pulse 72 Pulse Source Pulse Oximeter Pulse Oximetry (%) 98 Oxygen Delivery Method Room Air Intake Visit Reasons: Annual Physical Intake Note: pt is here for her Annual PE pt has not had her covid booster yet Allergies No Known Allergies [No Known Allergies*] Allergy (Verified 10/05/23 14:47) Medication List - Last Reconciled 03/17/23 by Mei Edward MD acetaminophen 650 mg PO Q6H PRN albuterol sulfate 90 mcg/actuation (ProAir HFA) 2 puffs inhalation Q6H PRN calcium carbonate-vitamin D3 600 mg-12.5 mcg (500 unit) (Calcium 600 with Vitamin D3) 1 cap PO DAILY docusate sodium 100 mg PO DAILY PRN duloxetine 60 mg PO DAILY fluticasone furoate-vilanterol 100-25 mcg/dose (Breo Ellipta) 1 inh inhalation DAILY multivitamin (Daily Multi-Vitamin tablet) 1 tab PO DAILY pantoprazole 40 mg PO DAILY Tobacco use date assessed: 03/17/23 Fall risk assessment: No Falls in past year Last assessed Fall Risk: 03/17/23 Dental Screening Dental Screen Date: 03/17/23 Did you have a dental visit in the last 12 months?: Yes Did you have a dental problem in the last 6 months where you did not have access to dental care?: No Was dental information given to patient?: Patient has dentist HPI Annual Physical HPI Details 77-year-old lady wth mild intermittent asthma, impaired fasting glucose, depression, 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 She is up-to-date with her screening mammogram, with negative findings, and bone density scan done 01/29/2023 which worsening osteoporosis in her lumbar spine, osteopenia in her left femoral neck and left femur. No history of fractures. She had recent fasting labs done which showed normal CBC, electrolytes , renal function, fasting glucose, liver enzymes, and lipid levels and vitamin-D levels are all within normal limits . She is up-to-date with her screening colonoscopy, done by Dr. Sanabria in 2021, due again in 2031. She is also here today complaining of intermittent episodes of pain in her both hip, worse with walking. Took Tylenol 650 mg tablet every 12 hours as needed for pain which has afforded only temporary relief. Complaining of worsening depression/anxiety. She states that she used to see someone at [facility] some time ago but has not seen anyone in sometime. She feels depressed and unmotivated to do anything on her days off from her part-time job. She is requesting to have a referral placed for in-person therapy/psychiatrist [facility] Medical History (Updated 10/05/23 @ 16:00 by Mei Edward MD) History of adenomatous polyp of colon Left hip pain Osteoporosis of lumbar spine Thrombocytopenia Benign recurrent vertigo Hiatal hernia with GERD Depression, major, in remission Skin lesion of face Impaired fasting glucose Osteopenia of multiple sites Environmental and seasonal allergies Mild intermittent asthma in adult without complication Surgical History History of ankle surgery No pertinent past surgical history Family History Sister Thyroid disorder Sister Breast cancer Father Leukemia Maternal Aunt Breast cancer Paternal Aunt Bone cancer Social History Housing: House Alcohol intake: current Alcohol intake frequency: a few times a week Patient Tobacco Use Status: Current someday Tobacco user Tobacco use type: Cigarette e-Cigarette/Vaping Use: Never Used Second Hand Smoke Exposure: No Advance Directives Date on File: 03/12/22 service: No Current occupational status: employed Current occupation: working part-time at [employer] Current occupational exposures/hazards: No Cognitive needs: No Hearing needs: No Vision needs: Yes Questionnaire PHQ-9 Over the last 2 weeks, how often have you been bothered by any of the following problems? 1. Little interest or pleasure in doing things: more than half the days 2. Feeling down, depressed, or hopeless: several days 3. Trouble falling or staying asleep, or sleeping too much: more than half the days 4. Feeling tired or having little energy: not at all 5. Poor appetite or overeating: more than half the days 6. Feeling bad about yourself - or that you are a failure or have let yourself or your family down: not at all 7. Trouble concentrating on things, such as reading the newspaper or watching television: several days 8. Moving or speaking so slowly that other people could have noticed. Or the opposite - being so fidgety or restless that you have been moving around a lot more than usual: not at all 9. Thoughts that you would be better off or of hurting yourself in some way: not at all Total score: 8 Depression Screening Interpretation: Positive Depression Screening Follow-up: Existing condition, In treatment and Community Mental Health Worker F/U (Wants to see a therapist) Depression Screening Done: Yes 75750 - PHQ-9 Billing: Yes Source: Developed by Drs. Kaushik Arora, Ruth Ann Wiley, Alex Thomas and colleagues, with an educational sydnie from [employer]. Thrive Questionnaire Date Thrive assessed: 01/06/23 ANA-7 AMB Questionnaire ANA-7 Date ANA - 7 assessed: 11/20/22 Source: Developed by Drs. Kaushik Arora, Ruth Ann Wiley, Alex Thomas and colleagues, with an educational sydnie from [employer]. ACT Questionnaire In the past 4 weeks, how much of the time did your asthma keep you from getting as much done at work, school or at home?: None of the time During the past 4 weeks, how often have you had shortness of breath?: Not at all During the past 4 weeks, how often did your asthma symptoms wake you up at night or earlier than usual in the morning?: Not at all During the past 4 weeks, how often have you had to use your rescue inhaler or nebulizer medication?: Not at all How would you rate your asthma control during the past 4 weeks?: Completely controlled ACT Interpretation: Negative Score: 25 Review of Systems Const Denies body aches, Denies fatigue and Denies headache(s) Eyes Reports no additional complaints ENT Denies headache(s) Card Denies chest pain, Denies rapid heart rate, Denies irregular heart rhythm and Denies lightheadedness Resp Denies cough GI Reports no additional complaints Reports no additional complaints Musc Reports as per HPI Skin/Breast Denies breast skin changes, Denies breast pain, Denies breast mass and Denies rash Neuro Denies headache(s) Psych Reports as per HPI Endo Denies fatigue Renaldo/Lymph Reports no additional complaints Aller/Immun Reports no additional complaints Physical exam (Primary Care) Vital Signs: Last Vital Signs Pulse 72 03/17/23 09:47 BP 126/72 03/17/23 09:47 Pulse Ox 98 03/17/23 09:47 Oxygen Delivery Method Room Air 03/17/23 09:47 BMI result Body Mass Index 34.3 Tobacco/Smoking Status: Tobacco use Status Tobacco use date assessed 03/17/23 03/17/23 09:54 Patient Tobacco Use Status Current someday Tobacco 03/17/23 09:54 Tobacco use type Cigarette 03/17/23 09:54 e-Cigarette/Vaping Use Never Used 03/17/23 09:47 PHQ-9: PHQ-9 Score PHQ-9: Total score 8 10/05/23 14:50 Depression Screening Interpretation: Positive Depression Screening Follow-up: Existing condition, In treatment and Community Mental Health Worker F/U (Wants to see a therapist) Thrive Assessment: Date of Thrive Assessment Date Thrive assessed 01/06/23 03/17/23 09:47 Const General: cooperative, comfortable and no acute distress Orientation/consciousness: patient oriented x3 HENMT Ears: external ears normal, TM's normal bilaterally and EAC's normal General nose exam: Normal external nose present Face and sinus: Yes face symmetric Mouth: Normal oral and palatal mucosa present and moist mucous membranes Eyes General: appearance normal, both eyes and all related structures Neck Neck: Yes full ROM, Yes no lymphadenopathy and Yes supple Chest Breast/axilla palpation: normal palpation of the breasts Resp Effort & Inspection: normal respiratory effort and able to speak in complete sentences Auscultation: clear to auscultation bilaterally Cardio Jugular venous distension: no JVD Rate: regular rate Rhythm: regular rhythm Heart sounds: S1 normal heart sound present and S2 normal heart sound present GI Palpation (GI): Soft to palpation, nontender and no guarding Auscultation: normal bowel sounds General: Yes no CVA tenderness Back/Spine/Pelvis Back: no CVA tenderness and No back tenderness Skin General skin exam: no rashes or lesions noted Neuro General: patient oriented x3, gait normal, moves all extremities, Normal light touch and pain sensation, no focal motor deficits and CN's II-XI intact bilaterally Extrem General: Yes full ROM, Yes no joint enlargement, Yes no clubbing, cyanosis or edema, Yes no calf tenderness and Yes normal gait Psych Appearance: grossly normal and well kempt Mental Status: mental status grossly normal Speech and movement: Normal speech and movement present Affect: normal affect Attitude: cooperative Thought process: Normal thought process present Thought content: Normal thought content present Results Reviewed Results Reviewed: Laboratory Tests 03/06/21 01/06/23 10:50 05:48 WBC 5.7 Hgb 14.4 Hct 42.9 RDW 13.2 Plt Count 129 L Sodium 141 Potassium 4.2 Chloride 108 Carbon Dioxide 26 Anion Gap 11 L BUN 11 Creatinine 0.83 Estimated GFR > 60 Fasting Glucose 93 AST 21 ALT 17 Triglycerides 98 Cholesterol 175 LDL Cholesterol, Calc 95 HDL Cholesterol 61 25-OH Vitamin D Total 36.3 Assessment and Plan Assessment & Plan (1) Annual visit for general adult medical examination with abnormal findings: Code(s): Z00.01 - Encounter for general adult medical examination with abnormal findings Plan: Recent fasting lab results reviewed with patient. Recommended dental visit every 6 months and regular eye exams, at least every 2 years. Take adequate calcium in diet and vitamin-D 3 at 2000 IU per cap once a day, in addition to weight-bearing exercises to help maintain good muscle tone and weight control. Instructed to do self-breast exam, and continue with yearly mammogram, currently up-to-date. She is also up-to-date with her bone density scan , referred to rheumatology for further evaluation and management, as she has tried taking Fosamax in the past but was unable to tolerate it. Up-to-date with all her vaccinations afford RSV vaccine (2) Bilateral hip pain: Code(s): M25.551 - Pain in right hip; M25.552 - Pain in left hip Plan: Continue taking Tylenol arthritis 650 mg 1 tablet every 12 hours as needed. Referred to rheumatology for further evaluation (3) Osteoporosis of lumbar spine: Code(s): M81.0 - Age-related osteoporosis without current pathological fracture Plan: Referred to rheumatology for further evaluation manage. Has been on Fosamax in the past but was unable to tolerate it (4) Mild intermittent asthma in adult without complication: Code(s): J45.20 - Mild intermittent asthma, uncomplicated Plan: Continued on Breo Ellipta and albuterol inhaler as needed episodes of bronchospasm. She gets yearly flu vaccine and up-to-date with her Prevnar 20 reminded to get her COVID booster (5) Depression, major, in remission: Code(s): F32.5 - Major depressive disorder, single episode, in full remission Plan: Referred to our certified mental health worker, Nicole, for assistance in getting in to be seen by Psychiatry and an in-person therapist, currently on duloxetine 60 mg daily (6) Hiatal hernia with GERD: Code(s): K44.9 - Diaphragmatic hernia without obstruction or gangrene; K21.9 - Gastro-esophageal reflux disease without esophagitis Plan: Currently on pantoprazole 40 mg daily (7) History of adenomatous polyp of colon: Code(s): Z86.010 - Personal history of colonic polyps Plan: Followed by Dr. Sanabria (8) Impaired fasting glucose: Code(s): R73.01 - Impaired fasting glucose Plan: Your fasting blood sugars elevated above 100 mg/dL. Impaired glucose metabolism increases risk for developing diabetes mellitus type 2, as well as heart attack and stroke later on. Lifestyle changes that promotes weight loss, healthy eating habits, and regular exercise are important, and can prevent the progression to diabetes (9) Thrombocytopenia: Code(s): D69.6 - Thrombocytopenia, unspecified Plan: Currently asymptomatic, referred to hematology for further evaluation Orders: Referrals Hematology & Oncology Referral D69.6 - Thrombocytopenia, unspecified Rheumatology Referral M81.0 - Age-related osteoporosis without current pathological fracture, M25.552 - Pain in left hip Coding Level of Care Code Est Pt Prev Care >65y(45938) Diagnoses Annual visit for general adult medical examination with abnormal findings Z00.01 Bilateral hip pain M25.551; M25.552 Osteoporosis of lumbar spine M81.0 Mild intermittent asthma in adult without complication J45.20 Depression, major, in remission F32.5 Hiatal hernia with GERD K44.9; K21.9 History of adenomatous polyp of colon Z86.010 Impaired fasting glucose R73.01 Thrombocytopenia D69.6
[2023-03-17 09:47] VITALS: BP 126/72; PULSE 72; O2SAT 98; BMI 34.3
== END 2023-03-17 12:11 | disposition home or self-care (01) ==
PROVIDERS: PCP Internal Medicine; Visit Provider Internal Medicine
DX: Z00.00 Encounter for general adult medical examination without abnormal findings (principal); F32.5 Major depressive disorder, single episode, in full remission; D69.6 Thrombocytopenia, unspecified; M25.551 Pain in right hip; M25.552 Pain in left hip; M81.0 Age-related osteoporosis without current pathological fracture; J45.20 Mild intermittent asthma, uncomplicated; K44.9 Diaphragmatic hernia without obstruction or gangrene; K21.9 Gastro-esophageal reflux disease without esophagitis; Z86.010 Personal history of colon polyps; R73.01 Impaired fasting glucose
CPT/HCPCS: 99499

== ENCOUNTER 2023-04-10 10:42 | Outpatient (AMB) | payer MEDICARE, SELFPAY ==
[2023-04-10 11:05] VITALS: BP 114/62; PULSE 63; RESP 16; TEMP 36.4; O2SAT 97; BMI 34.2
--- NOTE | 2023-04-10 11:05 | MHC.OFFVIS ---
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 Required: No Accompanied by: Self / Same As Patient Allergies No Known Allergies [No Known Allergies*] Allergy (Verified 04/10/23 11:07) Medication List - Last Reconciled 04/10/23 by Zoie Foss RN acetaminophen 650 mg PO Q6H PRN albuterol sulfate 90 mcg/actuation (ProAir HFA) 2 puffs inhalation Q6H PRN calcium carbonate-vitamin D3 600 mg-12.5 mcg (500 unit) (Calcium 600 with Vitamin D3) 1 cap PO DAILY docusate sodium 100 mg PO DAILY PRN duloxetine 60 mg PO DAILY fluticasone furoate-vilanterol 100-25 mcg/dose (Breo Ellipta) 1 inh inhalation DAILY multivitamin (Daily Multi-Vitamin tablet) 1 tab PO DAILY pantoprazole 40 mg PO DAILY HPI HPI Comments History of Present Illness Details Ms. Palencia is a 77-year-old woman, works three days per week, was referred by her PCP for management of Osteoporosis, via DEXA with lowest T score -2.6 in Spine. She denies prior long-term treatment, but currently takes Vitamin D and calcium. Her medical history includes hiatal hernia accompanied with shortness of breath, mild asthma, depression and low platelets. She has an upcoming appoint with [facility] for low platelets. Her risk factors for Osteoporosis includes being postmenopausal, long-term use of PPIs for GERD, and uses steroids for Asthma. She is fairly inactive; denies excessive consumption of alcohol. Patient denies history of eating disorder and other concerns for mal-absorption. She is also does not have a thyroid disease. She denies an inflammatory arthritis, a known autoimmune disease and any related family history. She also denies incidence of broken hip for mother. The patient has fractured her ankle twice, the last was 3 years ago. [facility] Medical History Left hip pain Osteoporosis of lumbar spine Thrombocytopenia Benign recurrent vertigo Hiatal hernia with GERD Depression, major, in remission Skin lesion of face Impaired fasting glucose Tubular adenoma of colon Osteopenia of multiple sites Environmental and seasonal allergies Mild intermittent asthma in adult without complication Surgical History History of ankle surgery No pertinent past surgical history Family History Sister Thyroid disorder Sister Breast cancer Father Leukemia Maternal Aunt Breast cancer Paternal Aunt Bone cancer Social History Housing: House Alcohol intake: current Alcohol intake frequency: a few times a week Patient Tobacco Use Status: Current someday Tobacco user Tobacco use type: Cigarette e-Cigarette/Vaping Use: Never Used Second Hand Smoke Exposure: No Advance Directives Date on File: 03/12/22 service: No Current occupational status: employed Current occupation: working part-time at [employer] Current occupational exposures/hazards: No Cognitive needs: No Hearing needs: No Vision needs: Yes Review of Systems Const All systems reviewed & are unremarkable except as noted in HPI and below Physical Exam Vital Signs: Last Vital Signs Temp 97.5 F 04/10/23 11:05 Pulse 63 04/10/23 11:05 Resp 16 04/10/23 11:05 BP 114/62 04/10/23 11:05 Pulse Ox 97 04/10/23 11:05 Oxygen Delivery Method Room Air 04/10/23 11:05 BMI result Body Mass Index 34.2 Last Vital Signs Temp 97.3 F 01/06/23 12:00 Pulse 62 01/06/23 12:00 Resp 16 01/06/23 12:00 BP 111/78 01/06/23 12:00 Pulse Ox 98 01/06/23 12:00 O2 Del Method Room Air 01/06/23 12:00 BMI result Body Mass Index 33.6 Vital signs reviewed. Constitutional: No acute distress. Well-developed and well-nourished. HEENT: Normocephalic and atraumatic. External auditory canals without erythema or edema bilaterally. Moist mucous membranes. No pharyngeal erythema or exudates. Skin: Warm and dry. No rashes or lesions noted. Neck: Full and painless range of motion. No cervical lymphadenopathy. Cardio: Regular rate and rhythm. No murmurs, gallops, or rubs. No lower extremity edema. No JVD. Pulmonary: No respiratory distress. No accessory muscle usage. Gastrointestinal: Soft, nontender, and nondistended in all 4 quadrants. Normoactive bowel sounds in all 4 quadrants. Genitourinary: No CVA tenderness. Musculoskeletal: Normal range of motion in joints throughout the body. No deformity or other signs of injury. Neuro: Alert and oriented x4. Cranial nerves 2-12 grossly intact. No focal deficits appreciated. Results Reviewed Results Reviewed: Laboratory Tests 01/06/23 05:48 Plt Count 129 L MPV 13.0 H Lymph % (Auto) 40.7 H Chloride 112 H Anion Gap 11 L BUN 15 Creatinine 0.73 Estim Creat Clear Calc 77.3 Estimated GFR > 60 Calcium 8.8 Date of Service: 01/29/23 cc: Mei Edward MD~ EXAMINATION: BONE DENSITOMETRY CLINICAL INDICATION: Unspecified fracture of right patella, initial encounter. COMPARISON: Previous BD dated 12/02/2019 and baseline BD dated 05/18/2006. TECHNIQUE: Using a [employer] DXA System (software version: 13.1) manufactured by [employer], dual-energy x-ray absorptiometry was performed of the lumbar spine and left hip. The images are of good technical quality. Summary results are attached. FINDINGS: LEFT FEMUR, NECK: Current: BMD 0.823 g/cm2, Z-score -0.2, T-score -1.5, osteopenia. Prior: BMD 0.797 g/cm2. Baseline: BMD 0.881 g/cm2. LEFT FEMUR, TOTAL: Current: BMD 0.862 g/cm2, Z-score 0.0, T-score -1.2, osteopenia, 1.4% decrease from previous, 5.8% decrease from baseline (<5% change is not significant). Prior: BMD 0.874 g/cm2. Baseline: BMD 0.915 g/cm2. AP SPINE L1-L2 (excluding L3 and L4): The data of L1-L4 has been changed to exclude the L3 and L4 vertebral bodies, because significant degenerative change at these levels may cause overestimation of lumbar spine density. Current: BMD 0.855 g/cm2, Z-score -1.8, T-score -2.6, osteoporosis, 8.3% decrease from previous, 7.7% decrease from baseline (<5% change is not significant). Prior: BMD 0.932 g/cm2. Baseline: BMD 0.926 g/cm2. IDENTIFIED RISK FACTORS: Menopause, secondary osteoporosis, recurrent falls, history of fracture (adult). HISTORY OF FRACTURE: Other. MEDICATIONS: Calcium supplements or multivitamin, vitamin D. Assessment & Plan Assessment & Plan (1) Osteoporosis of lumbar spine: Code(s): M81.0 - Age-related osteoporosis without current pathological fracture (2) Thrombocytopenia: Code(s): D69.6 - Thrombocytopenia, unspecified Plan #Osteoporosis: Patient was referred by primary care for management of osteoporosis, DEXA SCAN -2.6 in lumbar. She has not had treatment recently but remembers that she had tried Fosamax for about 1 month in the distant past and did not tolerate the medication. Patient is currently on a vitamin-D and calcium. I think it is reasonable to start her on Reclast given that she has concerns for GERD and a hiatal hernia and oral bisphosphonate could present and added challenge. I will obtain labs to assess and request PA for Reclast. She will continue with Calcium and Vitamin C. We discussed physical and muscle strengthening activities she can do that are beneficial for bone health. #Thrombocytopenia: I have personally reviewed labs with the patient, dating as far back as 2012, and we have found that her platelets have been consistently low for most of that time. Her father passed from lymphoma. She denies incidences of blood in sputum, urine and stool. Denies bruising or purpura and non seen on PE. She has not had a related evaluation and will see Heme in 2023. Patient desires to wait until after her appointment with [facility] before starting the Reclast. This seems reasonable to do. Orders: Orders Vitamin D 1,25 dihydroxy 1 Month M81.0 - Age-related osteoporosis without current pathological fracture Phosphorus 1 Month M81.0 - Age-related osteoporosis without current pathological fracture Albumin Level 1 Month M81.0 - Age-related osteoporosis without current pathological fracture Collagen Crosslinks NTX 1 Month M81.0 - Age-related osteoporosis without current pathological fracture Comprehensive Met. Panel 1 Month M81.0 - Age-related osteoporosis without current pathological fracture Alkaline Phosphatase Bone 1 Month M81.0 - Age-related osteoporosis without current pathological fracture Collagen Cross-linked,24U 1 Month M81.0 - Age-related osteoporosis without current pathological fracture Parathyroid Hormone Intact 1 Month M81.0 - Age-related osteoporosis without current pathological fracture Collagen Type I C-Telopeptide 1 Month M81.0 - Age-related osteoporosis without current pathological fracture Protein Electrophoresis 24HrUr 1 Month M81.0 - Age-related osteoporosis without current pathological fracture TSH reflex Free T4 1 Month M81.0 - Age-related osteoporosis without current pathological fracture Coding Level of Care Code New Pt Level 4 (29932) Diagnoses Osteoporosis of lumbar spine M81.0 Thrombocytopenia D69.6
== END 2023-04-10 11:57 | disposition home or self-care (01) ==
PROVIDERS: PCP Internal Medicine; Visit Provider Nurse Practitioner Family
DX: M81.0 Age-related osteoporosis without current pathological fracture (principal); D69.6 Thrombocytopenia, unspecified
CPT/HCPCS: 99204

== ENCOUNTER → 2023-04-10 10:42 | Outpatient (BNVA) | payer MEDICARE, SELFPAY | PROVIDERS: PCP Internal Medicine; Visit Provider Nurse Practitioner Family | DX: M81.0 Age-related osteoporosis without current pathological fracture (principal); D69.6 Thrombocytopenia, unspecified | CPT/HCPCS: 99202 ==

== ENCOUNTER 2023-04-30 21:39 | Emergency (ER) | payer MEDICARE, SELFPAY ==
[2023-04-30 22:02] VITALS: BP 150/90; BP 191/83; PULSE 92; PULSE 96; RESP 18; TEMP 36.1; O2SAT 100; O2SAT 98; BMI 33.8
[2023-04-30 23:52] VITALS: BP 152/82; PULSE 60; RESP 16; TEMP 36.5; O2SAT 98
[2023-05-01 05:14] VITALS: BP 148/81; PULSE 67; RESP 16; O2SAT 98
[2023-05-01 06:54] VITALS: BP 140/54; PULSE 60; RESP 16; O2SAT 96
[2023-05-01 07:59] VITALS: BP 144/70; BP 156/64; PULSE 62; PULSE 64
[2023-05-01 08:00] VITALS: BP 132/70; PULSE 69
--- NOTE | 2023-05-01 08:24 | ED.GENADULT ---
HPI - General Adult General Chief complaint: General Medical Stated complaint: VERTIGO, N/V X30 MINS Time Seen by Provider: 05/01/23 07:33 Source: patient Mode of arrival: EMS History of Present Illness HPI narrative: 77-year-old female who states that she is on minimal medications and arrives via EMS after onset of a wobbly room while she was watching TV. Patient reports that she vomited thereafter and called EMS but had to crawl to the door. Patient states that this has happened 1 other time in December and at that time it was felt that she had inner ear crystals . Patient endorses that she drinks 2 alcoholic beverages at least every evening. At this time patient reports that she is completely asymptomatic and feels at baseline on ambulation and movement from various positions. Related Data Home Medications Medication Instructions Recorded Confirmed calcium carbonate 600 mg-vitamin 1 cap PO DAILY 02/02/21 04/10/23 D3 12.5 mcg (500 unit) capsule (Calcium 600 with Vitamin D3) fluticasone furoate 100 1 inh inhalation DAILY 08/29/22 04/10/23 mcg-vilanterol 25 mcg/dose inhalation powder (Breo Ellipta) acetaminophen 325 mg tablet 650 mg PO Q6H PRN Headache 01/05/23 04/10/23 docusate sodium 100 mg tablet 100 mg PO DAILY PRN Constipation 01/05/23 04/10/23 multivitamin (Daily Multi-Vitamin 1 tab PO DAILY 03/17/23 04/10/23 tablet) Previous Rx's Medication Instructions Recorded albuterol sulfate 90 mcg/actuation 2 puff inhalation Q6H PRN 03/12/22 aerosol inhaler (ProAir HFA) shortness of breath or wheezing #8.5 grams duloxetine 60 mg capsule,delayed 60 mg PO DAILY #90 caps 07/25/22 release pantoprazole 40 mg tablet,delayed 40 mg PO DAILY #100 tabs 01/29/23 release Allergies Allergy/AdvReac Type Severity Reaction Status Date / Time No Known Allergies Allergy Verified 04/10/23 11:07 [No Known Allergies*] Review of Systems Review of Systems: Pertinent positives and negatives as stated in HPI [facility] Past Medical History Source: nursing notes reviewed Onset Date is defined in the Problem List Problems that require an onset date and time if occurred within 24 hrs of arrival to the ED Aortic Dissection and Rupture; Neurologic impairment; Cardiopulmonary Arrest; Endotracheal Intubation; Insertion or Replacement of Mechanical Circulatory Assist Device Medical History Left hip pain Osteoporosis of lumbar spine Thrombocytopenia Benign recurrent vertigo Hiatal hernia with GERD Depression, major, in remission Skin lesion of face Impaired fasting glucose Tubular adenoma of colon Osteopenia of multiple sites Environmental and seasonal allergies Mild intermittent asthma in adult without complication Surgical History History of ankle surgery No pertinent past surgical history Family History Family History Sister Thyroid disorder Sister Breast cancer Father Leukemia Maternal Aunt Breast cancer Paternal Aunt Bone cancer Social History Social History Housing: House Alcohol intake: current Alcohol intake frequency: a few times a week Patient Tobacco Use Status: Current someday Tobacco user Tobacco use type: Cigarette e-Cigarette/Vaping Use: Never Used Second Hand Smoke Exposure: No Advance Directives: Yes Advance Directives on File: Yes Advance Directives Date on File: 03/12/22 service: No Current occupational status: employed Current occupation: working part-time at [employer] Current occupational exposures/hazards: No Cognitive needs: No Hearing needs: No Vision needs: Yes Physical Exam ED Vital Signs: Vital Signs - 24 hr 04/30/23 22:02 04/30/23 23:52 05/01/23 05:14 Temperature 96.9 F 97.7 F Pulse Rate 96 60 67 Respiratory Rate 18 16 16 Blood Pressure 191/83 H 152/82 H 148/81 H Pulse Oximetry 98 98 98 Oxygen Delivery Method Room Air Room Air Room Air 05/01/23 06:54 05/01/23 07:59 05/01/23 07:59 Temperature Pulse Rate 60 62 64 Respiratory Rate 16 Blood Pressure 140/54 H 156/64 H 144/70 H Pulse Oximetry 96 Oxygen Delivery Method Room Air 05/01/23 08:00 Temperature Pulse Rate 69 Respiratory Rate Blood Pressure 132/70 Pulse Oximetry Oxygen Delivery Method BMI result Body Mass Index 33.8 VITAL SIGNS: Reviewed. GENERAL: Well developed, well nourished, in no acute distress. HEAD: Normocephalic/atraumatic EYES: PERRLA, EOMI EARS: Ext canals without abnormality, TMs non-bulging and non-erythematous NOSE: Nares patent bilateral OROPHARYNX: no oral lesions noted, posterior pharynx clear and non-erythematous without noted tonsillar enlargement/erythema/exudates NECK: Supple, no adenopathy LUNGS: Normal breath sounds. No adventitious sounds or accessory muscle use. SpO2<96> CARDIOVASCULAR: Regular rate and rhythm without noted murmurs, no JVD or lower extremity edema. ABDOMEN: Soft, non-tender, non-distended with bowel sounds. MUSCULOSKELETAL: No tenderness, deformities, or effusions noted on gross inspection. EXTREMITIES: No cyanosis, clubbing or edema. SKIN: Inspection of the skin reveals no rashes NEUROLOGIC: Alert and oriented x 4. Strength and sensation to light touch were grossly intact x 4, no facial asymmetry, no pronator drift, cranial nerves 2-12 grossly intact, patient was asked to ambulate and there is no evidence of ataxic gait, no truncal ataxia and patient denies dizziness. Medications Administered Discontinued Medications Generic Name Dose Route Start Last Admin Trade Name Ezq PRN Reason Stop Dose Admin Ondansetron HCl 4 mg 04/30/23 22:09 04/30/23 22:11 Ondansetron Odt 4 Mg Tab.Rapdis TRANSLINGU 04/30/23 22:10 4 mg ONCE ONE Administration Medical Decision Making Medical Decision Making [facility] Narrative: 77-year-old female with history and clinical presentation, DDX: Suspect BPPV, will rule out infection/anemia/electrolyte abnormalities, UTI, viral illness, no clinical suspicion for posterior stroke at this time, patient is completely asymptomatic at the time of my evaluation. I reviewed all investigations and hematologic indices are chronically stable without leukocytosis or left shift, patient has chronic thrombocytopenia and no anemia. Chemistry indices are grossly within normal limits without CHARITY and no electrolyte or liver enzyme derangements. Urinalysis negative for UTI or hematuria. Viral testing is negative. CT of the head is not significant for intracranial hemorrhage or mass effect. No acute findings on EKG. At this time patient is completely asymptomatic and is discharged home in strongly encouraged to follow-up with primary care doctor. In addition, she was encouraged to increase her fluid intake. Differential Diagnosis Differential Diagnoses: The differential diagnosis associated with the presentation includes Please see the discussion above Admission/Observation Consideration of admission/observation: Escalation of care including admission/observation considered Please see the discussion above Lab Data MDM Lab Attestation statement: I reviewed the patient's lab results. Please see the discussion above 04/30/23 22:24 04/30/23 22:24 Labs: Lab Results 04/30/23 05/01/23 Range/Units 22:24 08:06 WBC 7.2 (4.8-10.8) X10*3/uL RBC 4.87 (4.20-5.50) X10*6/uL Hgb 14.8 (12.0-16.0) g/dl Hct 43.4 (37.0-47.0) % MCV 89.1 (80.0-98.0) fL MCH 30.4 (27.0-33.0) pg MCHC 34.1 (31.0-35.0) g/dl RDW 13.1 (11.0-16.0) % Plt Count 144 L (160-400) X10*3/uL MPV 12.9 H (9.4-12.3) fL Immature Gran % (Auto) 0.3 (0.0-0.4) % Neut % (Auto) 62.9 (45-73) % Lymph % (Auto) 29.8 (20-40) % [place] % (Auto) 6.0 (2-11) % Eos % (Auto) 0.6 (0-4) % Baso % (Auto) 0.4 (0-2) % Lymph # (Auto) 2.1 (1.2-4.9) X10*3/uL [place] # (Auto) 0.4 (0.1-1.2) X10*3/uL Eos # (Auto) 0.0 (0.0-0.4) X10*3/uL Baso # (Auto) 0.0 (0.0-0.2) X10*3/uL Abs Immat Gran (auto) 0.02 (0.00-0.03) X10*3/uL Absolute Neuts (auto) 4.5 (2.0-8.3) x10*3/uL Absolute Nucleated RBC 0.000 (0.0-0.012) X10*3/uL Nucleated RBC % (auto) 0.0 (0.0-0.2) /100WBC Sodium 143 (135-145) mmol/L Potassium 3.7 (3.3-5.1) mmol/L Chloride 107 (96-108) mmol/L Carbon Dioxide 25 (22-29) mmol/L Anion Gap 15 (12-20) BUN 14 (9-16) mg/dL Creatinine 1.00 (0.5-1.4) mg/dL Estim Creat Clear Calc 56.6 Estimated GFR 54 Random Glucose 112 (60-115) mg/dL Calcium 9.4 D (8.4-10.2) mg/dL Total Bilirubin 0.3 (0.0-1.0) mg/dL Direct Bilirubin 0.1 (0.0-0.5) mg/dL AST 22 (5-31) U/L ALT 17 (0-31) U/L Alkaline Phosphatase 76 (39-117) U/L Total Protein 6.9 (6.5-8.0) g/dL Albumin 4.0 (3.5-5.0) g/dL Urine Color Yellow Urine Appearance Clear Urine pH 6.5 (5.0-9.0) Ur Specific [place] 1.020 (1.005-1.025) Urine Protein Negative (Neg-Trace) mg/dL Urine Glucose (UA) Negative (Negative) mg/dL Urine Ketones Negative (Negative) mg/dL Urine Blood Negative (Negative) Urine Nitrite Negative (Negative) Ur Leukocyte Esterase Negative (Negative) Influenza Type A (PCR) NEGATIVE (Negative) Influenza Type B (PCR) NEGATIVE (Negative) RSV RNA Qual (PCR) NEGATIVE (Negative) SARS-CoV-2 RNA (RT-PCR) NEGATIVE (Negative) Independent Interpretation I performed an independent interpretation of an: EKG Interpretation: Normal sinus rhythm, HR-74, no STEMI, WI/QRS/QTC is within normal limits. Radiology Impression Discussion of test interpretation with radiology: I have reviewed the radiologist's reading. Radiologist Impression: Please see the discussion above External Record Review External record reviewed: Outpatient record, Prior outpatient labs and Prior outpatient radiology Chronic Conditions Vertigo Critical Care Time Critical Care Time Critical Care Time: Yes Total Critical Care Time: 30 Attestation: I personally attest to this time spent taking care of the patient. Discharge Plan Discharge Clinical Impression: Vertigo Patient Disposition: Home, Self-Care Instructions: Vertigo (ED) Additional Instructions: 1. Resume all home medications as prescribed. Increase the amount of water intake. 2. Follow-up with your primary care doctor in the next 1-2 days. Return to the ER for any worsening symptoms. Prescriptions: No Action duloxetine 60 mg capsule,delayed release(DR/EC) 60 mg PO DAILY Qty: 90 3RF pantoprazole 40 mg tablet,delayed release (DR/EC) 40 mg PO DAILY Qty: 100 1RF acetaminophen 325 mg Tablet 650 mg PO Q6H PRN (Reason: Headache) docusate sodium 100 mg Tablet 100 mg PO DAILY PRN (Reason: Constipation) calcium carbonate-vitamin D3 [Calcium 600 with Vitamin D3] 600 mg(1,500mg) -500 unit capsule 1 cap PO DAILY albuterol sulfate [ProAir HFA] 90 mcg/actuation HFA aerosol inhaler 2 puff inhalation Q6H PRN (Reason: shortness of breath or wheezing) Qty: 8.5 3RF multivitamin [Daily Multi-Vitamin] Tablet 1 tab PO DAILY fluticasone furoate-vilanterol [Breo Ellipta] 100-25 mcg/dose blister with device 1 inh inhalation DAILY Referrals: Mei Edward MD [Primary Care Provider] -
== END 2023-05-01 11:13 | disposition home or self-care (01) ==
PROVIDERS: Emergency Provider Student in an Organized Health Care Education/Training Program; PCP Internal Medicine
DX: R42 Dizziness and giddiness (principal); R11.2 Nausea with vomiting, unspecified; F17.210 Nicotine dependence, cigarettes, uncomplicated; Z71.6 Tobacco abuse counseling; Z79.899 Other long term (current) drug therapy; Z20.822 Contact with and (suspected) exposure to COVID-19; Z20.828 Contact with and (suspected) exposure to other viral communicable diseases
CPT/HCPCS: 0241U; 36415; 70450; 80053; 81003; 82248; 85025; 93005; 99284

== ENCOUNTER → 2023-04-30 22:18 | Outpatient (BNV) | payer MEDICARE, SELFPAY | PROVIDERS: Emergency Provider Student in an Organized Health Care Education/Training Program; PCP Internal Medicine; Visit Provider Internal Medicine Cardiovascular Disease | DX: R94.31 Abnormal electrocardiogram [ECG] [EKG] (principal) | CPT/HCPCS: 93010 ==

== ENCOUNTER → 2023-07-10 15:20 | Outpatient (BNV) | payer MEDICARE, SELFPAY | PROVIDERS: PCP Internal Medicine; Visit Provider Internal Medicine | DX: D69.6 Thrombocytopenia, unspecified (principal) | CPT/HCPCS: 99203; 99213 ==

== ENCOUNTER 2023-07-24 10:47 | Outpatient (REF) | payer MEDICARE, SELFPAY ==
[2023-07-24 13:18] LABS: Alanine Aminotransferase 16 U/L (0-31); Albumin Level 3.9 g/dL (3.5-5.0); Alkaline Phosphatase 96 U/L (39-117); Anion Gap 11 (12-20); Aspartate Amino Transferase 18 U/L (5-31); Bilirubin Total 0.4 mg/dL (0.0-1.0); Blood Urea Nitrogen 10 mg/dL (9-16); Calcium 9.2 mg/dL (8.4-10.2); Carbon Dioxide 28 mmol/L (22-29); Chloride 107 mmol/L (96-108); Estimated Glomerular Filt Rate > 60; Glucose Random 64 mg/dL (60-115); Phosphorus 3.2 mg/dL (2.7-4.5); Potassium 3.6 mmol/L (3.3-5.1); Sodium 142 mmol/L (135-145); Total Protein 6.7 g/dL (6.5-8.0)
[2023-07-24 13:34] LABS: TSH reflex Free T4 2.42 uIU/mL (0.32-4.0)
[2023-07-28 15:43] LABS: VITAMIN D (1,25 OH) D3 61 pg/mL; Vit D (1,25-Dihydroxy) Total 61 pg/mL (18-72); Vitamin D (1,25 OH) D2 <8 pg/mL
== END 2023-07-24 10:48 | disposition home or self-care (01) ==
LOC: HO.LAB 10:47
PROVIDERS: PCP Internal Medicine; Visit Provider Nurse Practitioner Family
DX: M81.0 Age-related osteoporosis without current pathological fracture (principal)
CPT/HCPCS: 36415; 80053; 82652; 84100; 84443

== ENCOUNTER 2024-02-05 12:54 | Outpatient (REF) | payer MEDICARE, OTHER, SELFPAY ==
--- NOTE | ~2024-02-05 | MM_ITS ---
EXAMINATION: MM SCREENING DIGITAL BREAST TOMOSYNTHESIS, BILATERAL CLINICAL INFORMATION: Screening. Asymptomatic. COMPARISON: Mammography: Comparison is made with available priors TECHNIQUE: Digital breast mammography with tomosynthesis is performed in both the craniocaudal and mediolateral oblique views along with computer-aided detection (CAD). FINDINGS: There are scattered areas of fibroglandular density (ACR BI-RADS breast composition Category b). Right: There are no significant masses, abnormal calcifications, or other abnormalities. Left: Asymmetry superior breast middle to posterior depth on MLO view. No suspicious calcifications or other abnormal findings. MM/MM tomosynthesis screening BI IMPRESSION: Additional imaging is recommended ASSESSMENT: BI-RADS BI-RADS 0 - Incomplete: Needs additional Imaging. RECOMMENDATION: 1. Additional views of the left breast 2. Targeted ultrasound if warranted after review of the additional views. 3. Radiology department staff will contact the patient for additional imaging. Additional Imaging required This examination should not preclude the clinical evaluation of a suspicious palpable abnormality. This patient's information was entered into a reminder system with a target due date for their next mammogram. Electronically signed by: Cece Ramos DO 02/18/2024 09:42 PM EDT
== END 2024-02-05 12:55 | disposition home or self-care (01) ==
LOC: HO.MAMMO 12:54
PROVIDERS: PCP Internal Medicine; Visit Provider Internal Medicine
DX: Z12.31 Encounter for screening mammogram for malignant neoplasm of breast (principal)
CPT/HCPCS: 77063; 77067

== ENCOUNTER → 2024-02-05 13:00 | Outpatient (BNV) | payer MEDICARE, MEDICAID, SELFPAY | PROVIDERS: PCP Internal Medicine; Visit Provider Internal Medicine | DX: Z12.31 Encounter for screening mammogram for malignant neoplasm of breast (principal) | CPT/HCPCS: 77063; 77067 ==

== ENCOUNTER 2024-03-09 14:22 | Outpatient (REF) | payer MEDICARE, MEDICAID, SELFPAY ==
--- NOTE | ~2024-03-09 | US_ITS ---
EXAMINATION: MM DIAGNOSTIC DIGITAL BREAST TOMOSYNTHESIS, LEFT US BREAST LIMITED, LEFT CLINICAL INFORMATION: Diagnostic exam; follow-up for asymmetry superior breast middle to posterior depth on MLO view only. This localizes slightly medial on tomographic imaging. No definite correlate on the CC view. COMPARISON: Mammography: 02/05/2024, 01/29/2023, 12/06/2021, 12/04/2020, and dating back to 2019. TECHNIQUE: Digital breast tomosynthesis is performed in the following views: Full field left 3-D ML view, as well as a 3-D spot compression left MLO view. Computer-aided diagnosis was used for this study. FINDINGS: The breasts are heterogeneously dense, which may obscure small masses (ACR BI-RADS breast composition Category c). The spot compression MLO view, and full field left ML view, demonstrate no persisting abnormality in the region of concern slightly superior breast middle to posterior depth, extending just medial and lateral to midline on tomographic imaging. Findings suggest superimposition artifact of normal overlapping breast tissue. No correlate was seen on review of the CC view from the screening mammogram. We will evaluate this region with ultrasound. ULTRASOUND: CLINICAL INFORMATION: As above. Evaluate asymmetry. COMPARISON: None relevant. TECHNIQUE: Targeted sonographic evaluation was performed using a high frequency linear transducer. Attention was given to the upper outer and inner quadrants of the left breast in the region of mammographic concern. Selected archived documentation. FINDINGS: LEFT BREAST: -There is no suspicious mass, cystic abnormality, abnormal shadowing, or architectural distortion identified. Only normal heterogeneously dense breast parenchyma is identified without correlate to the mammographic index focus of concern. US/US breast LT limited mamm only IMPRESSION: -There are no findings suspicious for malignancy in either breast. -The focus of mammographic concern superior left breast, middle to posterior depth, is consistent with superimposition artifact of normal overlapping breast tissues. No suspicious findings are present. -Recommend the patient return to routine annual screening mammography. OVERALL ASSESSMENT: Mammography: BI-RADS 1 - Negative Ultrasound: BI-RADS 1 - Negative RECOMMENDATION: 1 year F/U This patient's information was entered into a reminder system with a target due date for their next mammogram. Electronically signed by: Robert Barroso MD 03/09/2024 04:14 PM [facility] [place]
== END 2024-03-09 14:23 | disposition home or self-care (01) ==
LOC: HO.MAMMO 14:22
PROVIDERS: PCP Internal Medicine; Visit Provider Internal Medicine
DX: N64.89 Other specified disorders of breast (principal)
CPT/HCPCS: 76642; 77061; 77065

== ENCOUNTER → 2024-03-09 14:30 | Outpatient (BNV) | payer MEDICARE, MEDICAID, SELFPAY | PROVIDERS: PCP Internal Medicine; Visit Provider Radiology Diagnostic Radiology | DX: R92.8 Other abnormal and inconclusive findings on diagnostic imaging of breast (principal) | CPT/HCPCS: 76642; 77065; G0279 ==

== ENCOUNTER 2024-03-16 12:49 | Outpatient (AMB) | payer MEDICARE, MEDICAID, SELFPAY ==
--- NOTE | 2024-03-16 13:21 | MHC.OFFWIV ---
Intake Vital Signs 03/16/24 13:22 Weight 222 lb BP 130/90 H Blood Pressure Location Lt brachial Position Sitting Pulse 71 Pulse Source Pulse Oximeter Temp 98.4 F Temp Source Oral Pulse Oximetry (%) 97 Oxygen Delivery Method Room Air Intake Visit Reasons: EP congestion/cold symptoms Intake Note: Patient here for congestion,cough that has been present for about 3 weeks. Patient Tobacco Use Status: Current someday Tobacco user Allergies No Known Allergies [No Known Allergies*] Allergy (Verified 03/16/24 13:23) Do you need a note to return to daycare/school/sports/work: No HPI HPI Comments History of Present Illness Details The patient is a 78-year-old female presenting with a productive cough and shortness of breath. The cough has persisted for three weeks, initially suspected by the patient to be due to a cold, and then allergies. She noted that for the last couple of days, the mucus has been green in color, with a change to dark yellow this morning. She describes mild sinus pressure behind her eyes but reports no sinus pain, ear pain, or headaches. The patient denies fever and has experienced slight shortness of breath. She has a history of asthma, which she manages with a daily inhaler, Breo, but rarely uses her rescue inhaler, ProAir, as resting usually alleviates her symptoms. She reports mild wheezing. COVID tests conducted three weeks ago and one week apart were negative. Previously, for her symptoms which she thought were allergies, she used Zyrtec, which provided relief by drying nasal secretions. She remains alone in her household and has not been in contact with sick individuals. Patient has a physical appointment with Dr. Edward on Thursday, she is also complaining of a swollen lymph node in her neck, noted to be approximately the size of a grape for the last few weeks, possibly due to her current upper respiratory condition. [facility] Medical History (Updated 03/16/24 @ 13:41 by Nara House PA-C) Moderate persistent asthma History of adenomatous polyp of colon Left hip pain Osteoporosis of lumbar spine Thrombocytopenia Benign recurrent vertigo Hiatal hernia with GERD Depression, major, in remission Skin lesion of face Impaired fasting glucose Osteopenia of multiple sites Environmental and seasonal allergies Surgical History History of ankle surgery No pertinent past surgical history Family History Sister Thyroid disorder Sister Breast cancer Father Leukemia Maternal Aunt Breast cancer Paternal Aunt Bone cancer Social History Housing: House Alcohol intake: current Alcohol intake frequency: a few times a week Patient Tobacco Use Status: Current someday Tobacco user Tobacco use type: Cigarette e-Cigarette/Vaping Use: Never Used Second Hand Smoke Exposure: No Advance Directives Date on File: 03/12/22 service: No Current occupational status: employed Current occupation: working part-time at [employer] Current occupational exposures/hazards: No Cognitive needs: No Hearing needs: No Vision needs: Yes Review of Systems Const All systems reviewed & are unremarkable except as noted in HPI and below Physical Exam Vital Signs: Last Vital Signs Temp 98.4 F 03/16/24 13:22 Pulse 71 03/16/24 13:22 BP 130/90 H 03/16/24 13:22 Pulse Ox 97 03/16/24 13:22 Oxygen Delivery Method Room Air 03/16/24 13:22 General: Cooperative, healthy appearing, comfortable and no acute distress Orientation/consciousness: Patient oriented x3 Limitations: No limitations Head: Normal to inspection Ears: Hearing grossly normal bilaterally, external ears normal and TM's normal bilaterally Nose: Normal external nose present, Normal nares present and Green nasal discharge present Face and sinus: Normal facial exam and Yes sinuses nontender Mouth: Normal oral and palatal mucosa present and moist mucous membranes Throat: Yes tonsils normal, Yes uvula midline. Posterior oropharynx erythema Eyes: Appearance normal, both eyes and all related structures Neck: Normal visual inspection, palpable swollen lymph node present Respirtory: Clear to auscultation bilaterally. Normal respiratory effort, able to speak in complete sentences, Actively coughing, no respiratory distress, not tachypneic, no tripod positioning and no use of accessory muscles Cardiovascular: Regular rate and rhythm. Normal S1 and S2 Skin: No rashes or lesions noted Neuro: Patient oriented x3 Extremities: Normal to inspection and Yes no clubbing, cyanosis or edema Assessment & Plan Assessment & Plan (1) Atypical pneumonia: Code(s): J18.9 - Pneumonia, unspecified organism Plan: For the diagnosis of atypical pneumonia, the patient will be prescribed azithromycin, commonly known as a Z-Gerardo. This antibiotic should help address the bacterial cause of her persistent cough. The treatment regimen will be two pills on the first day, followed by one pill daily for the next four days. The patient should continue to use her inhaler as needed for asthma symptoms, and she is advised to monitor the size and symptoms of the swollen lymph node. If there are concerns or if the lymph node does not reduce in size as the respiratory condition improves, further evaluation will be warranted by her PCP. Patient was informed and verbally consented to the use of an ambient scribe for clinic note documentation during this visit Medications: New azithromycin For 250 mg dose pack: take 500 mg today (day 1), then 250 mg for 4 days (days 2-5) PO 6 tabs 0RF Coding Level of Care Code Est Pt Level 3 (24640) Diagnoses Atypical pneumonia J18.9
[2024-03-16 13:22] VITALS: BP 130/90; PULSE 71; TEMP 36.9; O2SAT 97
== END 2024-03-16 14:13 | disposition home or self-care (01) ==
PROVIDERS: PCP Internal Medicine; Visit Provider Physician Assistant
DX: J18.9 Pneumonia, unspecified organism (principal)

== ENCOUNTER → 2024-03-16 12:49 | Outpatient (BNVA) | payer MEDICARE, MEDICAID, SELFPAY | PROVIDERS: PCP Internal Medicine; Visit Provider Physician Assistant | DX: J18.9 Pneumonia, unspecified organism (principal) | CPT/HCPCS: 99212 ==

== ENCOUNTER 2024-03-21 12:52 | Outpatient (AMB) | payer MEDICARE, SELFPAY ==
--- NOTE | 2024-03-21 13:06 | A.OFFPC_ITS ---
Vital Signs 03/21/24 13:07 Height 5 ft 7 in Weight 221 lb BMI 34.6 BP 126/82 Blood Pressure Location Lt brachial Position Sitting Pulse 64 Pulse Source Pulse Oximeter Pulse Oximetry (%) 96 Oxygen Delivery Method Room Air Intake Visit Reasons: PE Intake Note: Pt is here today for her PE: Last mammogram 03/09/24, bone density scan 01/29/23, colonoscopy 09/06/21 Allergies No Known Allergies [No Known Allergies*] Allergy (Verified 03/27/24 22:53) Medication List - Last Reconciled 03/21/24 by Mei Edward MD acetaminophen 650 mg PO Q6H PRN albuterol sulfate 90 mcg/actuation (ProAir HFA) 2 puffs inhalation Q6H PRN calcium carbonate-vitamin D3 600 mg-12.5 mcg (500 unit) (Calcium with Vit D3) 1 cap PO DAILY docusate sodium 100 mg PO DAILY PRN duloxetine 60 mg PO DAILY fluticasone furoate-vilanterol 100-25 mcg/dose (Breo Ellipta) 1 inh inhalation Q24H multivitamin (Daily Multi-Vitamin tablet) 1 tab PO DAILY pantoprazole 40 mg PO DAILY Tobacco use date assessed: 03/21/24 Fall risk assessment: No Falls in past year Last assessed Fall Risk: 03/21/24 Dental Screening Dental Screen Date: 03/17/23 Did you have a dental visit in the last 12 months?: Yes Did you have a dental problem in the last 6 months where you did not have access to dental care?: No Was dental information given to patient?: Patient has dentist HPI PE HPI Details 78-year-old female presenting today for her physical exam. She has been having a persistent cough accompanied by significant mucus production over the past month. Initially, she suspected the cause to be allergies or a cold, but a walk-in clinic presumptively diagnosed her with walking pneumonia; however, no chest X-ray was performed. The patient reports that her mucus was green, and has been prescribed azithromycin (Z-nicci) but notes continued mucus production, which is now yellow, and persistent cough. She also uses a fan at night, notices dust accumulation, and has never had her air vents cleaned, potentially exacerbating her symptoms due to dust allergies. She has been diagnosed to have osteoporosis, previously tried alendronate did not do well with it and was started on Reclast 07/2023. She will be followed by a new [facility] operations specialist in April for further management. A bone density test is anticipated to evaluate the treatment response, specifically targeting osteoporosis in the spine. She is also due for a colonoscopy, last performed five years ago, requiring follow-up with Dr. Morrison's office for scheduling. She is up-to-date with her breast cancer screening, had her mammogram done earlier this month. Recent flu and COVID vaccines administered but needs information to be updated in the [place] Registry, - Pneumonia vaccine, shingles vaccine, and tetanus vaccine are current. RSV vaccine was recommended. [facility] Medical History JER (obstructive sleep apnea) Moderate persistent asthma History of adenomatous polyp of colon Left hip pain Osteoporosis of lumbar spine Thrombocytopenia Benign recurrent vertigo Hiatal hernia with GERD Depression, major, in remission Skin lesion of face Impaired fasting glucose Osteopenia of multiple sites Environmental and seasonal allergies Surgical History History of ankle surgery No pertinent past surgical history Family History Sister Thyroid disorder Sister Breast cancer Father Leukemia Maternal Aunt Breast cancer Paternal Aunt Bone cancer Social History Housing: House Alcohol intake: current Alcohol intake frequency: a few times a week Patient Tobacco Use Status: Former Tobacco user Tobacco use type: Cigarette e-Cigarette/Vaping Use: Never Used Second Hand Smoke Exposure: No Advance Directives Date on File: 03/12/22 service: No Current occupational status: employed Current occupation: working part-time at [employer] Current occupational exposures/hazards: No Cognitive needs: No Hearing needs: No Vision needs: Yes Questionnaire PHQ-9 Over the last 2 weeks, how often have you been bothered by any of the following problems? 1. Little interest or pleasure in doing things: several days 2. Feeling down, depressed, or hopeless: several days 3. Trouble falling or staying asleep, or sleeping too much: more than half the days 4. Feeling tired or having little energy: several days 5. Poor appetite or overeating: several days 6. Feeling bad about yourself - or that you are a failure or have let yourself or your family down: not at all 7. Trouble concentrating on things, such as reading the newspaper or watching television: not at all 8. Moving or speaking so slowly that other people could have noticed. Or the opposite - being so fidgety or restless that you have been moving around a lot more than usual: not at all 9. Thoughts that you would be better off or of hurting yourself in some way: not at all Total score: 6 Depression Screening Interpretation: Positive Depression Screening Follow-up: Existing condition, In treatment and Community Mental Health Worker F/U Depression Screening Done: Yes 61828 - PHQ-9 Billing: Yes Source: Developed by Drs. Kaushik Arora, Ruth Ann Wiley, Alex Thomas and colleagues, with an educational sydnie from [employer]. Thrive Questionnaire Date Thrive assessed: 03/21/24 I am a: Patient What is your living situation today?: I have a steady place to live Within the past 12 months, did the food you bought not last and you didn't have the money to get more?: Never true Within the past 12 months, did you worry whether your food would run out before you got money to buy more?: Never true Do you have trouble paying for medicines?: No Do you have trouble getting transportation to medical appointments?: No Do you have trouble paying your heating and electricity bill?: No Do you have trouble taking care of your child, family member or friend?: No Do you have trouble with day-to-day activities such as bathing, preparing meals, shopping, managing finances, etc.?: No Are you currently unemployed and looking for a job?: No Are you interested in more education?: No Please select the resources that you would like help with: None Currently or been in a relationship where the following occur: No concerns reported THRIVE Score: 0 AUDIT C Alcohol Use Questionnaire (AUDIT-C) 1. How often do you have a drink containing alcohol?: 2-3 times a week 2. How many drinks containing alcohol do you have on a typical day when you are drinking?: 1 or 2 3. How often do you have six or more drinks on one occasion?: Never Total Score: 3 ANA-7 AMB Questionnaire ANA-7 Date ANA - 7 assessed: 03/21/24 Feeling nervous, anxious, or on edge: 0 = Not at all Not being able to stop or control worryin = Not at all Worrying too much about different things: 0 = Not at all Trouble relaxin = Not at all Being so restless that it is hard to sit still: 0 = Not at all Becoming easily annoyed or irritable: 1 = Several days Feeling afraid as if something awful might happen: 0 = Not at all Total ANA-7 score (0-4 normal; 5-9 mild; 10-14 moderate; 15-21 severe): 1 Source: Developed by Drs. Kaushik Arora, Ruth Ann Wiley, Alex Thomas and colleagues, with an educational sydnie from [employer]. 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 Reports as per HPI ENT Reports headache(s), Reports nasal congestion and Reports nasal discharge Card Denies chest pain, Reports palpitations and Reports dyspnea on exertion Resp Reports cough, Reports dyspnea on exertion and Reports wheezing GI Reports no additional complaints Skin/Breast Denies rash Neuro Reports headache(s) Endo Reports palpitations Renaldo/Lymph Reports no additional complaints Aller/Immun Reports wheezing Physical exam (Primary Care) Vital Signs: Last Vital Signs Pulse 64 03/21/24 13:07 BP 126/82 03/21/24 13:07 Pulse Ox 96 03/21/24 13:07 Oxygen Delivery Method Room Air 03/21/24 13:07 BMI result Body Mass Index 34.6 Tobacco/Smoking Status: Tobacco use Status Tobacco use date assessed 03/21/24 03/21/24 13:13 Patient Tobacco Use Status Former Tobacco user 03/21/24 13:13 Tobacco use type Cigarette 03/21/24 13:07 e-Cigarette/Vaping Use Never Used 03/21/24 13:07 PHQ-9: PHQ-9 Score PHQ-9: Total score 11 03/21/24 13:34 Depression Screening Interpretation: Positive Depression Screening Follow-up: Existing condition, In treatment and Community Mental Health Worker F/U Thrive Assessment: Date of Thrive Assessment Date Thrive assessed 03/21/24 03/21/24 13:13 Currently or been in a relationship where the following occur: No concerns reported Const General: cooperative, comfortable and no acute distress Orientation/consciousness: patient oriented x3 HENMT Ears: external ears normal, TM's normal bilaterally and EAC's normal General nose exam: Normal external nose present Face and sinus: Yes face symmetric Mouth: Normal oral and palatal mucosa present and moist mucous membranes Eyes General: appearance normal, both eyes and all related structures Neck Neck: Yes full ROM, Yes no lymphadenopathy and Yes supple Chest Breast/axilla palpation: normal palpation of the breasts Resp Effort & Inspection: normal respiratory effort and able to speak in complete sentences Auscultation: clear to auscultation bilaterally Cardio Jugular venous distension: no JVD Rate: regular rate Rhythm: regular rhythm Heart sounds: S1 normal heart sound present and S2 normal heart sound present GI Palpation (GI): Soft to palpation, nontender and no guarding Auscultation: normal bowel sounds General: Yes no CVA tenderness Back/Spine/Pelvis Back: no CVA tenderness and No back tenderness Skin General skin exam: no rashes or lesions noted Neuro General: patient oriented x3, gait normal, moves all extremities, Normal light touch and pain sensation, no focal motor deficits and CN's II-XI intact bilaterally Extrem General: Yes full ROM, Yes no joint enlargement, Yes no clubbing, cyanosis or edema, Yes no calf tenderness and Yes normal gait Psych Appearance: grossly normal and well kempt Mental Status: mental status grossly normal Speech and movement: Normal speech and movement present Affect: normal affect Attitude: cooperative Thought process: Normal thought process present Thought content: Normal thought content present Coding Level of Care Code Est Pt Prev Care >65y(35991) Diagnoses Annual visit for general adult medical examination with abnormal findings Z00.01 Moderate persistent asthma J45.40 Osteoporosis of lumbar spine M81.0 Thrombocytopenia D69.6 Environmental and seasonal allergies J30.89 Additional Codes PHQ-9 - 01610 - PHQ-9 Billing: Yes ([id number]) ANA-7 Assessment Billing - ANA-7 Assessment Tool: ANA-7 Assessment 71229 ([id number]) Assessment & Plan Assessment & Plan (1) Annual visit for general adult medical examination with abnormal findings: Code(s): Z00.01 - Encounter for general adult medical examination with abnormal findings (2) Moderate persistent asthma: Code(s): J45.40 - Moderate persistent asthma, uncomplicated Category: Medical (3) Osteoporosis of lumbar spine: Code(s): M81.0 - Age-related osteoporosis without current pathological fracture Category: Medical (4) Thrombocytopenia: Code(s): D69.6 - Thrombocytopenia, unspecified Category: Medical (5) Environmental and seasonal allergies: Code(s): J30.89 - Other allergic rhinitis Category: Medical Plan - Osteoporosis: Awaiting evaluation by a [facility] [employer] specialist in April; bone density test planned to assess treatment efficacy after receiving Reclast earlier this year. - Allergic Rhinitis: Recommend daily use of Claritin or Zyrtec, with avoidance of decongestants with pseudoephedrine. discussed the management of her respiratory symptoms, likely due to allergy exacerbated by dust in her home. I advised using Claritin or Zyrtec and suggested cleaning the vents to reduce allergens -persistent cough Continued symptomatic management advised; consider further evaluation if symptoms persist. - Constipation: Recommend dietary modifications including prune juice, pitted prunes, and avoidance of bananas. 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 - Low Platelet Count: No current treatment required; continue monitoring. - recommended scheduling appointment with Dr. Morrison for her colonoscopy scheduling. We reviewed her previous laboratory results, emphasizing the persistently low platelet count without associated bleeding risks, and plan to repeat the bloodwork today. Patient was informed and verbally consented to the use of an ambient scribe for clinic note documentation during this visit.
[2024-03-21 13:07] VITALS: BP 126/82; PULSE 64; O2SAT 96; BMI 34.6
== END 2024-03-21 14:03 | disposition home or self-care (01) ==
PROVIDERS: PCP Internal Medicine; Visit Provider Internal Medicine
DX: Z00.01 Encounter for general adult medical examination with abnormal findings (principal); J45.40 Moderate persistent asthma, uncomplicated; M81.0 Age-related osteoporosis without current pathological fracture; D69.6 Thrombocytopenia, unspecified; J30.89 Other allergic rhinitis

== ENCOUNTER 2024-03-21 12:52 | Outpatient (REF) | payer MEDICARE, OTHER, SELFPAY ==
[2024-03-21 16:21] LABS: Alanine Aminotransferase 22 U/L (0-31); Anion Gap 13 (12-20); Aspartate Amino Transferase 22 U/L (5-31); Blood Urea Nitrogen 16 mg/dL (9-16); Calcium 9.8 mg/dL (8.4-10.2); Carbon Dioxide 26 mmol/L (22-29); Chloride 103 mmol/L (96-108); Cholesterol 175 mg/dL (<200); Estimated Glomerular Filt Rate > 60; Glucose Fasting 97 mg/dL (60-99); HDL Cholesterol 69 mg/dL (>40); LDL Cholesterol Calculated 91 mg/dL (<100); Sodium 138 mmol/L (135-145); Triglycerides 77 mg/dL (<150)
[2024-03-21 16:37] LABS: Vitamin D 25-OH Total 47.1 ng/mL (>30)
== END 2024-03-21 12:53 | disposition home or self-care (01) ==
LOC: HO.HMGCLDS 12:52
PROVIDERS: PCP Internal Medicine; Visit Provider Internal Medicine
DX: Z00.01 Encounter for general adult medical examination with abnormal findings (principal); J45.40 Moderate persistent asthma, uncomplicated; M81.0 Age-related osteoporosis without current pathological fracture; D69.6 Thrombocytopenia, unspecified; J30.89 Other allergic rhinitis; R05.8 Other specified cough; K59.00 Constipation, unspecified; R73.01 Impaired fasting glucose; F32.5 Major depressive disorder, single episode, in full remission; Z13.220 Encounter for screening for lipoid disorders; Z78.0 Asymptomatic menopausal state
CPT/HCPCS: 36415; 80048; 80061; 82306; 84450; 84460; 96127; 99397

== ENCOUNTER 2024-03-23 10:23 | Outpatient (AMB) | payer MEDICARE, MEDICAID, SELFPAY ==
[2024-03-23 10:36] VITALS: BP 122/70; PULSE 73; O2SAT 96; BMI 34.0
--- NOTE | 2024-03-23 10:36 | A.OFFVIS_ITS ---
Vital Signs 03/23/24 10:36 Height 5 ft 7 in Weight 217 lb 2.485 oz BMI 34.0 BP 122/70 Blood Pressure Location Lt brachial Position Sitting Pulse 73 Pulse Source Pulse Oximeter Pulse Oximetry (%) 96 Oxygen Delivery Method Room Air Intake Visit Reasons: asthma Green End Worker Required: No Allergies No Known Allergies [No Known Allergies*] Allergy (Verified 03/23/24 10:40) HPI Comments Details: The patient is here for pulmonary evaluation. The patient is a 78 year woman with a known history of asthma. Apparently she did have a positive methacholine challenge at [place]. The patient has been on Breo inhaler and also has a rescue inhaler. Recently started developing a productive cough with yellow phlegm. She did go to urgent Care. She was diagnosed with walking pneumonia given a Z-Gerardo. She is partially better but still having issues. She also has daytime drowsiness. Her [place] score is elevated 03/20. She is also was told that she has some irregular heartbeats. I did look at her previous EKG appeared to show normal sinus rhythm. She did have a sleep study done as [facility] in [facility] which showed moderate sleep apnea. The patient opted not treating it. Will try to get the report to look at it and see if she is willing to try CPAP specially if he does have cardiovascular risk factors and persistent sleep apnea. In the meantime the patient does have dyspnea on exertion. She has been on Breo for some time. More recent PFTs that I can see. Will have her get a chest x-ray and also optimize her respiratory medicine by adding Incruse to her Breo. If this works for her she may be a good candidate for Trelegy. [facility] Medical History (Updated 03/27/24 @ 18:00 by Ranjit Urbina MD) JER (obstructive sleep apnea) Moderate persistent asthma History of adenomatous polyp of colon Left hip pain Osteoporosis of lumbar spine Thrombocytopenia Benign recurrent vertigo Hiatal hernia with GERD Depression, major, in remission Skin lesion of face Impaired fasting glucose Osteopenia of multiple sites Environmental and seasonal allergies Surgical History History of ankle surgery No pertinent past surgical history Family History Sister Thyroid disorder Sister Breast cancer Father Leukemia Maternal Aunt Breast cancer Paternal Aunt Bone cancer Social History (Updated 03/23/24 @ 10:42 by CRISTHIAN Pichardo) Housing: House Alcohol intake: current Alcohol intake frequency: a few times a week Patient Tobacco Use Status: Former Tobacco user Tobacco use type: Cigarette e-Cigarette/Vaping Use: Never Used Second Hand Smoke Exposure: No Advance Directives Date on File: 03/12/22 service: No Current occupational status: employed Current occupation: working part-time at [employer] Current occupational exposures/hazards: No Cognitive needs: No Hearing needs: No Vision needs: Yes Review of Systems Const Reports daytime sleepiness, Denies fever(s), Reports headache(s) and Reports sn oring Eyes Reports no additional complaints ENT Reports headache(s), Reports nasal congestion and Reports nasal discharge Card Denies chest pain, Reports palpitations and Reports dyspnea on exertion Resp Reports cough, Reports dyspnea on exertion, Reports snoring and Reports wheezing GI Reports no additional complaints Musc Reports no additional complaints Skin/Breast Denies rash Neuro Reports headache(s) Endo Reports palpitations Renaldo/Lymph Reports no additional complaints Aller/Immun Reports wheezing Physical Exam Vital Signs: Last Vital Signs Pulse 73 03/23/24 10:36 BP 122/70 03/23/24 10:36 Pulse Ox 96 03/23/24 10:36 Oxygen Delivery Method Room Air 03/23/24 10:36 BMI result Body Mass Index 34.0 Const General: comfortable HEENT Head: Yes normocephalic Neck Neck: Yes supple Chest Chest palpation & inspection: normal inspection of the chest Resp Effort & Inspection: normal respiratory effort Auscultation: clear to auscultation bilaterally Cardio Heart sounds: S1 normal heart sound present and S2 normal heart sound present GI Palpation (GI): Soft to palpation Skin General skin exam: no rashes or lesions noted Extrem General: Yes no clubbing, cyanosis or edema Assessment & Plan Assessment & Plan (1) Moderate persistent asthma: Code(s): J45.40 - Moderate persistent asthma, uncomplicated Category: Medical Qualifiers: Asthma complication type: uncomplicated Qualified Code(s): J45.40 - Moderate persistent asthma, uncomplicated (2) JER (obstructive sleep apnea): Code(s): G47.33 - Obstructive sleep apnea (adult) (pediatric) Category: Medical (3) Bronchitis: Code(s): J40 - Bronchitis, not specified as acute or chronic Category: Medical Plan continue Breo start Incruse, consider Trelegy when she completes her rx CXR Need to review her PSG from [facility], will likely benefit from CPAP therapy complete a course of doxycycline F/U 2-3 months Orders: Orders XR chest 2V 03/23/24 J45.40 - Moderate persistent asthma, uncomplicated Medications: New umeclidinium 62.5 mcg/actuation (Incruse Ellipta) 1 inh inhalation DAILY 2 ea 0RF 60 days J45.909 - Unspecified asthma, uncomplicated doxycycline hyclate 100 mg PO BID 20 caps 0RF 10 days Coding Level of Care Code New Pt Level 4 (69366) Diagnoses Moderate persistent asthma without complication J45.40 Asthma complication type: uncomplicated JER (obstructive sleep apnea) G47.33 Bronchitis J40 Time Spent (min) 40
== END 2024-03-23 11:06 | disposition home or self-care (01) ==
PROVIDERS: PCP Internal Medicine; Visit Provider Hospitalist
DX: J45.40 Moderate persistent asthma, uncomplicated (principal); G47.33 Obstructive sleep apnea (adult) (pediatric); J40 Bronchitis, not specified as acute or chronic
CPT/HCPCS: 99204

== ENCOUNTER → 2024-03-23 10:23 | Outpatient (BNVA) | payer MEDICARE, MEDICAID, SELFPAY | PROVIDERS: PCP Internal Medicine; Visit Provider Hospitalist | DX: J45.40 Moderate persistent asthma, uncomplicated (principal); J40 Bronchitis, not specified as acute or chronic; G47.33 Obstructive sleep apnea (adult) (pediatric) | CPT/HCPCS: 99202 ==

== ENCOUNTER 2024-03-28 12:16 | Outpatient (REF) | payer MEDICARE, MEDICAID, SELFPAY | END 2024-03-28 12:17 | disposition home or self-care (01) | LOC: HO.XRAY 12:16 | PROVIDERS: PCP Internal Medicine; Visit Provider Hospitalist | DX: J45.40 Moderate persistent asthma, uncomplicated (principal) | CPT/HCPCS: 71046 ==

== ENCOUNTER 2024-05-04 13:23 | Outpatient (AMB) | payer MEDICARE, MEDICAID, SELFPAY ==
--- NOTE | 2024-05-04 13:25 | A.OFFVIS_ITS ---
Vital Signs 05/04/24 13:29 Height 5 ft 7 in Weight 219 lb 12.814 oz BMI 34.4 BP 120/80 Blood Pressure Location Lt brachial Position Sitting Pulse 81 Pulse Source Pulse Oximeter Pulse Oximetry (%) 97 Oxygen Delivery Method Room Air Intake Visit Reasons: Osteoporosis Intake Note: Patient presents for Osteoporosis. Allergies doxycycline Adverse Reaction (Verified 05/04/24 13:28) headaches and GI issues Medication List - Last Reconciled 05/04/24 by Gladys Bahena MD acetaminophen 650 mg PO Q6H PRN albuterol sulfate 90 mcg/actuation (ProAir HFA) 2 puffs inhalation Q6H PRN azithromycin 500 mg PO DAILY 5 days calcium carbonate-vitamin D3 600 mg-12.5 mcg (500 unit) (Calcium with Vit D3) 1 cap PO DAILY docusate sodium 100 mg PO DAILY PRN doxycycline hyclate 100 mg PO BID 10 days duloxetine 60 mg PO DAILY zcbuhxgqnyf-yzgwwcnij-lycsnkcw 200-62.5-25 mcg (Trelegy Ellipta) 1 inh inhalation DAILY 30 days multivitamin (Daily Multi-Vitamin tablet) 1 tab PO DAILY pantoprazole 40 mg PO DAILY umeclidinium 62.5 mcg/actuation (Incruse Ellipta) 1 inh inhalation DAILY 60 days HPI Comments Details: Patient is a 78-year-old female GERD secondary to hiatal hernia, thrombocytopenia and osteoporosis of the spine who presents today for follow up. Interval History: Last seen 04/10/2023 with Judi Anderson. At that time she was establishing care for osteoporosis of the AP spine. Started on IV Reclast, 1st dose 06/2023 Today, Overall patient is doing well today. No problems with IV Reclast infusions No recent falls and no recent fractures. Rheumatologic History: Patient establish care 04/10/2023 for low bone density with lowest T-score at the AP spine -2.6 Started on IV Reclast 06/2023 Current Rheumatology Medication(s): IV Reclast 5mg Infusion yearly - 06/2023 [facility] Medical History (Updated 05/04/24 @ 14:15 by Gladys Bahena MD) Encounter for monitoring bisphosphonate therapy JER (obstructive sleep apnea) Moderate persistent asthma History of adenomatous polyp of colon Left hip pain Osteoporosis of lumbar spine Thrombocytopenia Benign recurrent vertigo Hiatal hernia with GERD Depression, major, in remission Skin lesion of face Impaired fasting glucose Osteopenia of multiple sites Environmental and seasonal allergies Surgical History History of ankle surgery No pertinent past surgical history Family History Sister Thyroid disorder Sister Breast cancer Father Leukemia Maternal Aunt Breast cancer Paternal Aunt Bone cancer Social History Housing: House Alcohol intake: current Alcohol intake frequency: a few times a week Patient Tobacco Use Status: Former Tobacco user Tobacco use type: Cigarette e-Cigarette/Vaping Use: Never Used Second Hand Smoke Exposure: No Advance Directives Date on File: 03/12/22 service: No Current occupational status: employed Current occupation: working part-time at [employer] Current occupational exposures/hazards: No Cognitive needs: No Hearing needs: No Vision needs: Yes Review of Systems Const Details: Review of Systems Constitutional: Denies fever, chills, weight loss ENT: Denies vision changes, eye pain or eye redness, dental caries, dry mouth GI: Denies nausea, vomiting, diarrhea, abdominal pain, change in BM Pulm: Denies SOB, PETE, hemoptysis, wheezing Cards: Denies chest pain, palpitations Skin: Denies Raynaud's, rash, nail changes, photosensitivity, BATTERY PLATE REMOVER: Denies headaches, weakness, paresthesias, recurrent falls MSK: as per HPI All other systems reviewed and are unremarkable except noted above Physical Exam Vital Signs: Last Vital Signs Pulse 81 05/04/24 13:29 BP 120/80 05/04/24 13:29 Pulse Ox 97 05/04/24 13:29 Oxygen Delivery Method Room Air 05/04/24 13:29 BMI result Body Mass Index 34.4 Physical Examination CONSTITUITIONAL Patient alert and cooperative. Well appearing and in no apparent painful distress HEENT Conjunctiva and sclera clear. ?Pupils equal round and reactive to light. ?No lymphadenopathy. ? CHEST/RESPIRATORY SYSTEM Normal respiratory effort and able to speak in complete sentences. ?Clear to auscultation bilaterally. ?No crackles, rales, rhonchi, wheezes heard. CARDIAC SYSTEM Regular rate and rhythm. ?S1 and S2 heard no murmurs. ?Radial pulses intact bilaterally MSK Hands: ?Good lens cleaner strength bilaterally. No deformities noted. ?No synovitis noted to the MCPs, PIPs or DIPs. ?No tenderness to palpation of these joints. Wrists: ?Full range of motion at the wrists without pain. ?No tenderness to palpation or synovitis noted to the wrists. Elbows: Full range of motion without pain. No tenderness, weakness, swelling, increased warmth or erythema. Shoulders: Full range of motion without pain. No tenderness, weakness, swelling, increased warmth or erythema. Hips: Full range of motion without pain. Hip bursa: No tenderness to palpation Knees: ?Full range of motion. ?No tenderness, swelling, increased warmth or erythema.?No effusion or crepitations Ankles: Full range of motion. ?No tenderness, swelling, increased warmth or erythema.? Feet: ?Negative squeeze test. ?No tenderness to palpation or swelling of the MTPs. Tender points:?No tenderness to palpation of the bilateral trapezius, supraspinatus, greater trochanters, anterior costochondral junctions, bilateral gluteal areas, bilateral suboccipital muscle insertions SKIN Skin intact without rashes. Results Reviewed Results Reviewed: Laboratory Tests 04/30/23 03/21/24 22:24 14:08 WBC 7.2 RBC 4.87 Hgb 14.8 Hct 43.4 Plt Count 144 L Sodium 138 Potassium 4.0 Chloride 103 Carbon Dioxide 26 Anion Gap 13 BUN 16 Creatinine 0.86 Calcium 9.8 D AST 22 ALT 22 25-OH Vitamin D Total 47.1 DEXA 01/2023 FINDINGS: LEFT FEMUR, NECK: Current: BMD 0.823 g/cm2, Z-score -0.2, T-score -1.5, osteopenia. Prior: BMD 0.797 g/cm2. Baseline: BMD 0.881 g/cm2. LEFT FEMUR, TOTAL: Current: BMD 0.862 g/cm2, Z-score 0.0, T-score -1.2, osteopenia, 1.4% decrease from previous, 5.8% decrease from baseline (<5% change is not significant). Prior: BMD 0.874 g/cm2. Baseline: BMD 0.915 g/cm2. AP SPINE L1-L2 (excluding L3 and L4): The data of L1-L4 has been changed to exclude the L3 and L4 vertebral bodies, because significant degenerative change at these levels may cause overestimation of lumbar spine density. Current: BMD 0.855 g/cm2, Z-score -1.8, T-score -2.6, osteoporosis, 8.3% decrease from previous, 7.7% decrease from baseline (<5% change is not significant). Prior: BMD 0.932 g/cm2. Baseline: BMD 0.926 g/cm2. Assessment & Plan Assessment & Plan (1) Osteoporosis of lumbar spine: Comment: DEXA 01/2023: Left femur neck -1.5, Left femur total -1.2, AP spine -2.6 IV Reclast 06/2023 Code(s): M81.0 - Age-related osteoporosis without current pathological fracture Category: Medical Plan: #Osteoporosis of lumbar spine Patient with osteoporosis of the spine and history of patellar fracture and ankle fracture Started on IV Reclast 06/2023. Tolerated the infusion No further falls or fractures Plan - Reclast IV June 2024 - CMP, Vit D 1 week before IV infusion - DEXA in January 2025 - RTC February 2025 (2) Encounter for monitoring bisphosphonate therapy: Code(s): Z51.81 - Encounter for therapeutic drug level monitoring; Z79.83 - watermaster (current) use of bisphosphonates Category: Medical Plan: #Long-term Use of Bisphosphonates Risks and benefits of bisphosphonates in the management of osteoporosis Benefits include improved bone density, decreased fracture risk Risks include atypical femoral fractures, GI upset, esophageal strictures Contraindicated in patients with a creatinine clearance < 30 to 35 ml/min Keep vitamin-D at least 35 ng/mL Plan I spent 20 minutes reviewing the record and labs, taking a history, examining the patient, discussing the treatment plan and documenting in the medical record Orders: Orders Vitamin D 25-OH (D2 and D3) Today E55.9 - Vitamin D deficiency, unspecified, M81.0 - Age-related osteoporosis without current pathological fracture, Z51.81 - Encounter for therapeutic drug level monitoring, Z79.83 - watermaster (current) use of bisphosphonates Comprehensive Met. Panel 06/27/24 E55.9 - Vitamin D deficiency, unspecified, M81.0 - Age-related osteoporosis without current pathological fracture, Z51.81 - Encounter for therapeutic drug level monitoring, Z79.83 - [facility] (current) use of bisphosphonates XR DEXA axial skeleton 01/25/25 M81.0 - Age-related osteoporosis without current pathological fracture Referrals Infusion Center Notification M81.0 - Age-related osteoporosis without current pathological fracture Coding Level of Care Code Est Pt Level 3 (61738) Diagnoses Osteoporosis of lumbar spine M81.0 Encounter for monitoring bisphosphonate therapy Z51.81; Z79.83
[2024-05-04 13:29] VITALS: BP 120/80; PULSE 81; O2SAT 97; BMI 34.4
== END 2024-05-04 13:49 | disposition home or self-care (01) ==
PROVIDERS: PCP Internal Medicine; Visit Provider Student in an Organized Health Care Education/Training Program
DX: M81.0 Age-related osteoporosis without current pathological fracture (principal); Z51.81 Encounter for therapeutic drug level monitoring; Z79.83 Long term (current) use of bisphosphonates
CPT/HCPCS: 99213

== ENCOUNTER → 2024-05-04 13:23 | Outpatient (BNVA) | payer MEDICARE, MEDICAID, SELFPAY | PROVIDERS: PCP Internal Medicine; Visit Provider Student in an Organized Health Care Education/Training Program | DX: M81.0 Age-related osteoporosis without current pathological fracture (principal); Z51.81 Encounter for therapeutic drug level monitoring; Z79.83 Long term (current) use of bisphosphonates | CPT/HCPCS: 99212 ==

== ENCOUNTER 2024-05-25 10:49 | Outpatient (AMB) | payer MEDICARE, MEDICAID, SELFPAY ==
[2024-05-25 10:51] VITALS: BP 130/84; PULSE 67; O2SAT 98; BMI 34.4
--- NOTE | 2024-05-25 10:51 | A.OFFVIS_ITS ---
Vital Signs 05/25/24 10:51 Height 5 ft 7 in Weight 219 lb 5.759 oz BMI 34.4 BP 130/84 Blood Pressure Location Rt brachial Position Sitting Pulse 67 Pulse Source Pulse Oximeter Pulse Oximetry (%) 98 Oxygen Delivery Method Room Air Intake Visit Reasons: Asthma Allergies doxycycline Adverse Reaction (Verified 05/25/24 10:54) headaches and GI issues HPI Comments Details: The patient is a 78 year woman with a known history of asthma. Apparently she did have a positive methacholine challenge at [place]. The patient has been on Breo inhaler and also has a rescue inhaler. Recently started developing a productive cough with yellow phlegm. She did go to urgent Care. She was diagnosed with walking pneumonia given a Z-Gerardo. She is partially better but still having issues. She also has daytime drowsiness. Her Spencer score is elevated 03/20. She is also was told that she has some irregular heartbeats. I did look at her previous EKG appeared to show normal sinus rhythm. She did have a sleep study done as [facility] in [facility] which showed moderate sleep apnea. The patient opted not treating it. Will try to get the report to look at it and see if she is willing to try CPAP specially if he does have cardiovascular risk factors and persistent sleep apnea. In the meantime the patient does have dyspnea on exertion. She has been on Breo for some time. More recent PFTs that I can see. Will have her get a chest x-ray and also optimize her respiratory medicine by adding Incruse to her Breo. If this works for her she may be a good candidate for Trelegy. 05/25/2024 the patient is here for pulmonary follow-up visit. Overall she is doing okay. She is noticing some increased dyspnea on exertion gmur-ko-gymsllxi severity and also a dry hacky cough. Moderate severity. Feels like her asthma is acting up. She has been taking Incruse. I had center Trelegy to the pharmacy but she had been just taking the Incruse at this time. She is going to go to her house to make sure she has a Trelegy available and start that. When she is on the Trelegy she can not reassess her symptoms after few weeks. I am hopeful that her respiratory symptoms she started subsiding. If not she can always call the office and we can go ahead and consider treating her for chronic bronchitis with Daliresp. We need to do pulmonary function studies. Will plan to do the Xopenex visit she comes in 4 months. In addition to that we did look at her x-ray that she had in 04/15/2022. I personally reviewed with her demonstrating no acute disease. The patient also had a sleep study back in 2022. Was done with [facility]. Seem that she had an AHI of 16 which is moderate sleep apnea. Per primarily when she was sleeping on her back. She had no evidence of any sleep apnea when she laid on her side. We did talk about positional sleep therapy at this time. Her Spencer score is not significantly elevated at 11/17. If her daytime drowsiness is worsen or she develops any worsening cardiovascular disease we can always consider repeating the sleep study. Will plan to follow-up with PFTs if she has any issues prior to that she will call for an earlier assessment. [facility] Medical History (Updated 05/04/24 @ 14:15 by Gladys Bahena MD) Encounter for monitoring bisphosphonate therapy JER (obstructive sleep apnea) Moderate persistent asthma History of adenomatous polyp of colon Left hip pain Osteoporosis of lumbar spine Thrombocytopenia Benign recurrent vertigo Hiatal hernia with GERD Depression, major, in remission Skin lesion of face Impaired fasting glucose Osteopenia of multiple sites Environmental and seasonal allergies Surgical History History of ankle surgery No pertinent past surgical history Family History Sister Thyroid disorder Sister Breast cancer Father Leukemia Maternal Aunt Breast cancer Paternal Aunt Bone cancer Social History (Updated 05/25/24 @ 10:54 by Katheryn Sinha [facility]) Housing: House Alcohol intake: current Alcohol intake frequency: a few times a week Patient Tobacco Use Status: Current someday Tobacco user Tobacco use type: Cigarette e-Cigarette/Vaping Use: Never Used Second Hand Smoke Exposure: No Advance Directives Date on File: 03/12/22 service: No Current occupational status: employed Current occupation: working part-time at [employer] Current occupational exposures/hazards: No Cognitive needs: No Hearing needs: No Vision needs: Yes Review of Systems Const Reports daytime sleepiness, Denies fever(s), Reports headache(s) and Reports snoring Eyes Reports no additional complaints ENT Reports headache(s), Reports nasal congestion and Reports nasal discharge Card Denies chest pain, Reports palpitations and Reports dyspnea on exertion Resp Reports cough, Reports dyspnea on exertion, Reports snoring and Reports wheezing GI Reports no additional complaints Musc Reports no additional complaints Skin/Breast Denies rash Neuro Reports headache(s) Endo Reports palpitations Renaldo/Lymph Reports no additional complaints Aller/Immun Reports wheezing Physical Exam Vital Signs: Last Vital Signs Pulse 67 05/25/24 10:51 BP 130/84 05/25/24 10:51 Pulse Ox 98 05/25/24 10:51 Oxygen Delivery Method Room Air 05/25/24 10:51 BMI result Body Mass Index 34.4 Const General: comfortable HEENT Head: Yes normocephalic Neck Neck: Yes supple Chest Chest palpation & inspection: normal inspection of the chest Resp Effort & Inspection: normal respiratory effort Auscultation: clear to auscultation bilaterally Cardio Heart sounds: S1 normal heart sound present and S2 normal heart sound present GI Palpation (GI): Soft to palpation Skin General skin exam: no rashes or lesions noted Extrem General: Yes no clubbing, cyanosis or edema Assessment & Plan Assessment & Plan (1) Moderate persistent asthma: Code(s): J45.40 - Moderate persistent asthma, uncomplicated Category: Medical Qualifiers: Asthma complication type: uncomplicated Qualified Code(s): J45.40 - Moderate persistent asthma, uncomplicated (2) JER (obstructive sleep apnea): Code(s): G47.33 - Obstructive sleep apnea (adult) (pediatric) Category: Medical (3) Bronchitis: Code(s): J40 - Bronchitis, not specified as acute or chronic Category: Medical Plan start Trelegy PFTs positional sleep therapy for now complete a course of doxycycline F/U 3-4 months Orders: Orders PFT pulmonary function test 3 Months J45.40 - Moderate persistent asthma, uncomplicated Coding Level of Care Code Est Pt Level 4 (80594) Diagnoses Moderate persistent asthma without complication J45.40 Asthma complication type: uncomplicated JER (obstructive sleep apnea) G47.33 Bronchitis J40 Time Spent (min) 16
== END 2024-05-25 11:27 | disposition home or self-care (01) ==
PROVIDERS: PCP Internal Medicine; Visit Provider Hospitalist
DX: J45.40 Moderate persistent asthma, uncomplicated (principal); G47.33 Obstructive sleep apnea (adult) (pediatric); J40 Bronchitis, not specified as acute or chronic
CPT/HCPCS: 99214

== ENCOUNTER → 2024-05-25 10:49 | Outpatient (BNVA) | payer MEDICARE, MEDICAID, SELFPAY | PROVIDERS: PCP Internal Medicine; Visit Provider Hospitalist | DX: J45.40 Moderate persistent asthma, uncomplicated (principal); J40 Bronchitis, not specified as acute or chronic; G47.33 Obstructive sleep apnea (adult) (pediatric) | CPT/HCPCS: 99212 ==

== ENCOUNTER 2024-08-24 10:52 | Outpatient (REF) | payer MEDICARE, SELFPAY ==
--- NOTE | 2024-08-24 10:55 | PFT_ITS ---
Spirometry [] Lung Volumes [] Diffusion Capacity [] Methacholine Challenge [] Flow Volume Loops [] MVV [] MIP/MEP(Max inspiratory pressure/Max expiratory pressure) [] 6 Minute Walk Test [] ABG [] Interpretation [] MTDD
[2024-08-24 11:32] VITALS: PULSE 65; O2SAT 97
== END 2024-08-24 10:53 | disposition home or self-care (01) ==
LOC: HO.RESP 10:52
PROVIDERS: PCP Internal Medicine; Visit Provider Hospitalist
DX: J45.40 Moderate persistent asthma, uncomplicated (principal)
CPT/HCPCS: 94010; 94640; 94727; 94729

== ENCOUNTER → 2024-08-24 10:55 | Outpatient (BNV) | payer MEDICARE, SELFPAY | PROVIDERS: PCP Internal Medicine; Visit Provider Internal Medicine Pulmonary Disease | DX: J45.40 Moderate persistent asthma, uncomplicated (principal) | CPT/HCPCS: 94060; 94727; 94729 ==

== ENCOUNTER 2024-09-07 09:10 | Outpatient (REF) | payer MEDICARE, SELFPAY ==
--- OUTSIDE RECORDS SUMMARY | 2024-09-07 09:40 | XMS_ITS | Encounter Summary ---
Author Organization [facility] Address [address] [place] [address] Care Team Providers Care Weight Recorder Name Role Phone Mei Edward Md, MD Primary Care Provider Unavailable Reason for Visit * Reason Onset Date Comments refill request 09/06/2020 Encounter Details Date Type Department Care Team Description 09/06/2020 Refill Pulmonology - [place] [address] [facility] [address] [place] [address] Martín Nelson MD [address] [facility] [address] [place] [address] refill request Social History Tobacco Use Types Packs/Day Years Used Date Smoking Tobacco: Never Smokeless Tobacco: Never Alcohol Use Standard Drinks/Week Comments Yes 3 (1 standard drink = 0.6 oz pur e alcohol) Sex Assigned at Date Recorded Not on file documented as of this encounter Miscellaneous Notes * Telephone Encounter - Mitra Tinajero - 09/06/2020 5:00 PM EDT Patient would like script to be: E-PRESCRIBED/FAXED TO PHARMACY WHEN WAS THE PATIENT'S LAST APPOINTMENT WITH THE PRESCRIBING PROVIDER? 11/25/19 Does patient have an upcoming appointment? Yes 09/14/20 (THE MEDICATION REQUESTED IS ON THE MED LIST ABOVE) All of the medications requested were on the CURRENT MEDS list Did you check the Pharmacy information above?: YES Patient wants: 90 -day supply Is this a mail order prescription request ? NO Patients current insurance carrier is: Payor: [facility] / Plan: [facility] MEDICARE COMPLETE $15/$[place] [facility] [place] [id number] / Product Type: PPO [id number] documented in this encounter Plan of Treatment Not on file documented as of this encounter Visit Diagnoses Diagnosis Moderate persistent asthma without complication Unspecified asthma Allergic rhinitis, unspecified seasonality, unspecified trigger Gastroesophageal reflux disease without esophagitis Esophageal reflux documented in this encounter Care Teams Weight Recorder Relationship Specialty Start Date End Date Mei Edward MD, MD PCP - General Internal Medicine 11/19/18 documented as of this encounter
--- OUTSIDE RECORDS SUMMARY | 2024-09-07 09:40 | XMS_ITS | Encounter Summary ---
Author Organization [facility] Address [address] [place] [address] Care Team Providers Care Tower Switch Operator Name Role Phone Mei Edward Md, MD Primary Care Provider Unavailable Reason for Visit * Reason Onset Date Comments Faxed Refill 04/10/2022 Encounter Details Date Type Department Care Team Description 04/10/2022 Refill Pulmonology - [place] [address] [facility] [address] [place] [address] Jalen Villatoro MD [address] [place] [phone] Faxed Refill Social History Tobacco Use Types Packs/Day Years Used Date Smoking Tobacco: Never Smokeless Tobacco: Never Alcohol Use Standard Drinks/Week Comments Yes 3 (1 standard drink = 0.6 oz pur e alcohol) Sex Assigned at Date Recorded Not on file documented as of this encounter Miscellaneous Notes * Telephone Encounter - Courtney Escalante - 04/14/2022 4:46 PM EST 2nd attempt from [facility] in regards to medication Breo Ellipta INH 100-25. will forward this paper to [place] [facility] is requesting 3x 60 [id number] total * Telephone Encounter - Courtney Escalante - 04/10/2022 4:31 PM EST Refill not on med list. [facility] requesting for Breo Ellipta INH 100-25 (3x60 [id number] total) Pt has an appointment on 04/25/22 at 11:20am with Dr. Don documented in this encounter Plan of Treatment Not on file documented as of this encounter Visit Diagnoses Not on filedocumented in this encounter Care Teams Tower Switch Operator Relationship Specialty Start Date End Date Mei Edward MD, MD PCP - General Internal Medicine 11/19/18 documented as of this encounter
--- OUTSIDE RECORDS SUMMARY | 2024-09-07 09:40 | XMS_ITS | Encounter Summary ---
Author Organization [facility] Address [address] [place] [address] Care Team Providers Care Project Geologist Name Role Phone Carri Whitten MD Primary Care Provider Unavailab le Maria Eugenia Mcmahon MD Primary Care Provide r Unavailable Mei Edward Md, MD Primary Care Provider Unavailable Encounter Details Date Type Department Care Team Description 01/22/2017 Release of Information Medical Records [address] [place] [id number] Abstract, Provider Social History Tobacco Use Types Packs/Day Years Used Date Smoking Tobacco: Never Assessed Sex Assigned at Date Recorded Not on file documented as of this encounter Plan of Treatment Not on file documented as of this encounter Visit Diagnoses Not on filedocumented in this encounter Care Teams Project Geologist Relationship Specialty Start Date End Date Carri Whitten MD PCP - General Internal Medicine 04/27/16 05/23/18 Maria Eugenia Mcmahon MD PCP - General Internal Medicine 05/24/18 Mie Edward MD, MD PCP - General Internal Medicine 11/19/18 documented as of this encounter
--- OUTSIDE RECORDS SUMMARY | 2024-09-07 09:40 | XMS_ITS | Encounter Summary ---
Author Organization [facility] Address [address] [place] [address] Care Team Providers Care Formal Service Waiter Name Role Phone Mei Edward Md, MD Primary Care Provider Unavailable Reason for Visit * Reason Onset Date Comments refill request 09/09/2019 Encounter Details Date Type Department Care Team Description 09/09/2019 Refill Pulmonology - [place] [address] [facility] [address] [place] [address] Martín Nelson MD [address] [facility] [address] [place] [address] refill request Social History Tobacco Use Types Packs/Day Years Used Date Smoking Tobacco: Never Smokeless Tobacco: Never Alcohol Use Standard Drinks/Week Comments Yes 3 (1 standard drink = 0.6 oz pur e alcohol) Sex Assigned at Date Recorded Not on file documented as of this encounter Miscellaneous Notes * Telephone Encounter - Clair Jiang - 09/12/2019 8:52 AM EDT Lisa- 03/31/19 Next- 11/25/2019 * Telephone Encounter - Macey Urbina - 09/09/2019 10:15 AM EDT Patient would like script to be:MAIL ORDER WHEN WAS THE PATIENT'S LAST APPOINTMENT IN ADULT MEDICINE? 03/31/19 WHEN WAS THE LAST TIME THE PATIENT SAW THEIR PCP? Same as above Does patient have an upcoming appointment? Yes 11/25/19 (THE MEDICATION REQUESTED IS ON THE MED LIST ABOVE) All of the medications requested were on the CURRENT MEDS list Did you check the Pharmacy information above?: YES Patient wants: 90 -day supply Is this a mail order prescription request ? YES If the refill is from a FAXED refill request what is the RX # listed on the fax? N/A Patients current insurance carrier is: Payor: [facility] / Plan: [employer] MEDICARE COMPLETE $15/$45 [facility] [place] [id number] / Product Type: PPO [id number] documented in this encounter Plan of Treatment Not on file documented as of this encounter Visit Diagnoses Diagnosis Wheezing Shortness of breath Gastroesophageal reflux disease without esophagitis Esophageal reflux documented in this encounter Care Teams Formal Service Waiter Relationship Specialty Start Date End Date Mei Edward MD, MD PCP - General Internal Medicine 11/19/18 documented as of this encounter
--- OUTSIDE RECORDS SUMMARY | 2024-09-07 09:40 | XMS_ITS | Encounter Summary ---
Author Organization [facility] Address [address] [place] [address] Care Team Providers Care Retail Selling Specialist Name Role Phone Mei Edward Md, MD Primary Care Provider Unavailable Encounter Details Date Type Department Care Team Description 04/13/2023 Orders Only Medical Records [address] [place] [address] Social History Tobacco Use Types Packs/Day Years Used Date Smoking Tobacco: Never Smokeless Tobacco: Never Alcohol Use Standard Drinks/Week Comments Yes 3 (1 standard drink = 0.6 oz pur e alcohol) Sex Assigned at Date Recorded Not on file documented as of this encounter Plan of Treatment Not on file documented as of this encounter Procedures Procedure Name Priority Date/Time Associated Diagnosis Comments OUTSIDE SLEEP STUDY Routine 03/13/2023 documented in this encounter Results * OUTSIDE SLEEP STUDY (03/13/2023) [facility] PULMONOLOGY documented in this encounter Visit Diagnoses Not on filedocumented in this encounter Care Teams Retail Selling Specialist Relationship Specialty Start Date End Date Mei Edward MD, MD PCP - General Internal Medicine 11/19/18 documented as of this encounter
[2024-09-07 11:15] LABS: Alanine Aminotransferase 20 U/L (0-31); Albumin Level 3.8 g/dL (3.5-5.0); Alkaline Phosphatase 75 U/L (39-117); Anion Gap 12 (12-20); Aspartate Amino Transferase 23 U/L (5-31); Bilirubin Total 0.3 mg/dL (0.0-1.0); Blood Urea Nitrogen 11 mg/dL (9-16); Calcium 8.8 mg/dL (8.4-10.2); Carbon Dioxide 26 mmol/L (22-29); Chloride 111 mmol/L (96-108); Estimated Glomerular Filt Rate > 60; Glucose Random 107 mg/dL (60-115); Potassium 4.1 mmol/L (3.3-5.1); Sodium 145 mmol/L (135-145); Total Protein 6.4 g/dL (6.5-8.0)
[2024-09-12 03:27] LABS: Vitamin D 25-OH, D2 <4 ng/mL; Vitamin D 25-OH, D3 39 ng/mL; Vitamin D 25-OH, Total 39 ng/mL (30-100)
== END 2024-09-07 09:11 | disposition home or self-care (01) ==
LOC: HO.LAB 09:10
PROVIDERS: PCP Internal Medicine; Visit Provider Student in an Organized Health Care Education/Training Program
DX: M81.0 Age-related osteoporosis without current pathological fracture (principal); E55.9 Vitamin D deficiency, unspecified; Z51.81 Encounter for therapeutic drug level monitoring; Z79.83 Long term (current) use of bisphosphonates
CPT/HCPCS: 36415; 80053; 82306

== ENCOUNTER 2024-09-22 10:59 | Outpatient (AMB) | payer MEDICARE, MEDICAID, SELFPAY ==
[2024-09-22 11:15] VITALS: BP 124/64; PULSE 75; O2SAT 98; BMI 33.3
--- NOTE | 2024-09-22 11:15 | A.OFFVIS_ITS ---
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 Apparently she did have a positive methacholine challenge at [place]. The patient has been on Breo inhaler and also has a rescue inhaler. Recently started developing a pro ductive cough with yellow phlegm. She did go to urgent Care. She was diagnosed with walking pneumonia given a Z-Gerardo. She is partially better but still having issues. She also has daytime drowsiness. Her Kenesaw score is elevated 03/20. She is also was told that she has some irregular heartbeats. I did look at her previous EKG appeared to show normal sinus rhythm. She did have a sleep study done as [facility] in [facility] which showed moderate sleep apnea. The patient opted not treating it. Will try to get the report to look at it and see if she is willing to try CPAP specially if he does have cardiovascular risk factors and persistent sleep apnea. In the meantime the patient does have dyspnea on exertion. She has been on Breo for some time. More recent PFTs that I can see. Will have her get a chest x-ray and also optimize her respiratory medicine by adding Incruse to her Breo. If this works for her she may be a good candidate for Trelegy. 05/25/2024 the patient is here for pulmonary follow-up visit. Overall she is doing okay. She is noticing some increased dyspnea on exertion [id number] severity and also a dry hacky cough. Moderate severity. Feels like her asthma is acting up. She has been taking Incruse. I had center Trelegy to the pharmacy but she had been just taking the Incruse at this time. She is going to go to her house to make sure she has a Trelegy available and start that. When she is on the Trelegy she can not reassess her symptoms after few weeks. I am hopeful that her respiratory symptoms she started subsiding. If not she can always call the office and we can go ahead and consider treating her for chronic bronchitis with Daliresp. We need to do pulmonary function studies. Will plan to do the Xopenex visit she comes in 4 months. In addition to that we did look at her x-ray that she had in 04/15/2022. I personally reviewed with her demonstrating no acute disease. The patient also had a sleep study back in 2022. Was done with [facility]. Seem that she had an AHI of 16 which is moderate sleep apnea. Per primarily when she was sleeping on her back. She had no evidence of any sleep apnea when she laid on her side. We did talk about positional sleep therapy at this time. Her Kenesaw score is not significantly elevated at 11/17. If her daytime drowsiness is worsen or she develops any worsening cardiovascular disease we can always consider repeating the sleep study. Will plan to follow-up with PFTs if she has any issues prior to that she will call for an earlier assessment. 09/22/2024 the patient is here for pulmonary follow-up visit. Overall the patient has been doing fairly okay. She did not tolerate the Trelegy. The patient developed some irritation to her throat and she stopped it. She continues use her rescue inhaler as needed. She has has issues with her hiatal hernia. She did see a surgeon for. She really wants surgery although she was recommended not to have surgery at this time. We did talk about the importance of the reflux diet and to followed closely with these recommendations to minimize the reflux symptoms that can cause worsening cough active asthma and also chronic rhinitis. The patient did have pulmonary function studies demonstrating reversible obstruction consistent with asthma. Will go ahead and start her on Advair since she did not tolerate Trelegy. She will do an HFA to avoid the powder. In addition to that she will continue with the reflux diet and perform a barium swallow. As far as sleep apnea she needs to make sure she sleeps on her side. To take care the sleep apnea and also these reflux disease she is going to get risers for the head of the bed so she can sleep elevated. She will follow-up in 4 months so we can review her progress. Otherwise she can always call for an earlier assessment. [facility] Medical History (Updated 05/04/24 @ 14:15 by Gladys Bahena MD) Encounter for monitoring bisphosphonate therapy JER (obstructive sleep apnea) Moderate persistent asthma History of adenomatous polyp of colon Left hip pain Osteoporosis of lumbar spine Thrombocytopenia Benign recurrent vertigo Hiatal hernia with GERD Depression, major, in remission Skin lesion of face Impaired fasting glucose Osteopenia of multiple sites Environmental and seasonal allergies Surgical History History of ankle surgery No pertinent past surgical history Family History Sister Thyroid disorder Sister Breast cancer Father Leukemia Maternal Aunt Breast cancer Paternal Aunt Bone cancer Social History Housing: House Alcohol intake: current Alcohol intake frequency: a few times a week Patient Tobacco Use Status: Current someday Tobacco user Tobacco use type: Cigarette e-Cigarette/Vaping Use: Never Used Second Hand Smoke Exposure: No Advance Directives Date on File: 03/12/22 service: No Current occupational status: employed Current occupation: working part-time at [employer] Current occupational exposures/hazards: No Cognitive needs: No Hearing needs: No Vision needs: Yes Review of Systems Const Reports daytime sleepiness, Denies fever(s), Reports headache(s) and Reports snoring Eyes Reports no additional complaints ENT Reports headache(s), Reports nasal congestion and Reports nasal discharge Card Denies chest pain, Reports palpitations and Reports dyspnea on exertion Resp Reports cough, Reports dyspnea on exertion, Reports snoring and Reports wheezing GI Reports no additional complaints Musc Reports no additional complaints Skin/Breast Denies rash Neuro Reports headache(s) Endo Reports palpitations Renaldo/Lymph Reports no additional complaints Aller/Immun Reports wheezing Physical Exam Vital Signs: Last Vital Signs Pulse 75 09/22/24 11:15 BP 124/64 09/22/24 11:15 Pulse Ox 98 09/22/24 11:15 Oxygen Delivery Method Room Air 09/22/24 11:15 BMI result Body Mass Index 33.3 Const General: comfortable HEENT Head: Yes normocephalic Neck Neck: Yes supple Chest Chest palpation & inspection: normal inspection of the chest Resp Effort & Inspection: normal respiratory effort Auscultation: clear to auscultation bilaterally Cardio Heart sounds: S1 normal heart sound present and S2 normal heart sound present GI Palpation (GI): Soft to palpation Skin General skin exam: no rashes or lesions noted Extrem General: Yes no clubbing, cyanosis or edema Assessment & Plan Assessment & Plan (1) Moderate persistent asthma: Code(s): J45.40 - Moderate persistent asthma, uncomplicated Category: Medical Qualifiers: Asthma complication type: uncomplicated Qualified Code(s): J45.40 - Moderate persistent asthma, uncomplicated (2) JER (obstructive sleep apnea): Code(s): G47.33 - Obstructive sleep apnea (adult) (pediatric) Category: Medical (3) Bronchitis: Code(s): J40 - Bronchitis, not specified as acute or chronic Category: Medical Plan stop Trelegy start Advair HFA positional sleep therapy for now reflux diet Sleep with HOB elevated Barium swallow Sputum Cx F/U 3-4 months Orders: Orders Sputum Cult + Gram stain Today R91.1 - Solitary pulmonary nodule FL barium swallow Today K21.9 - Gastro-esophageal reflux disease without esophagitis Medications: New fluticasone propion-salmeterol 115-21 mcg/actuation (Advair HFA) 2 puffs inhalation Q12H 30 days 12 grams 11RF Coding Level of Care Code Est Pt Level 4 (93371) Complex EM visit Add On G2211 Diagnoses Moderate persistent asthma without complication J45.40 Asthma complication type: uncomplicated JER (obstructive sleep apnea) G47.33 Bronchitis J40 Time Spent (min) 18
== END 2024-09-22 11:55 | disposition home or self-care (01) ==
LOC: HO.HPS 10:59
PROVIDERS: PCP Internal Medicine; Visit Provider Hospitalist
DX: J45.40 Moderate persistent asthma, uncomplicated (principal); G47.33 Obstructive sleep apnea (adult) (pediatric); J40 Bronchitis, not specified as acute or chronic
CPT/HCPCS: 99214; G2211

== ENCOUNTER → 2024-09-22 10:59 | Outpatient (BNVA) | payer MEDICARE, MEDICAID, SELFPAY | PROVIDERS: PCP Internal Medicine; Visit Provider Hospitalist | DX: J45.40 Moderate persistent asthma, uncomplicated (principal); G47.33 Obstructive sleep apnea (adult) (pediatric); J40 Bronchitis, not specified as acute or chronic | CPT/HCPCS: 99212 ==

== ENCOUNTER 2024-09-28 09:54 | Outpatient (REF) | payer MEDICARE, MEDICAID, SELFPAY ==
[2024-09-28 12:15] LABS: Alanine Aminotransferase 21 U/L (0-31); Albumin Level 4.1 g/dL (3.5-5.0); Anion Gap 11 (12-20); Aspartate Amino Transferase 26 U/L (5-31); Bilirubin Total 0.5 mg/dL (0.0-1.0); Blood Urea Nitrogen 13 mg/dL (9-16); Carbon Dioxide 29 mmol/L (22-29); Chloride 106 mmol/L (96-108); Estimated Glomerular Filt Rate > 60; Glucose Random 113 mg/dL (60-115); Potassium 4.1 mmol/L (3.3-5.1); Sodium 142 mmol/L (135-145); Total Protein 6.6 g/dL (6.5-8.0)
[2024-09-28 13:02] LABS: Alkaline Phosphatase 64 U/L (39-117)
[2024-10-03 16:14] LABS: Vitamin D 25-OH, D2 <4 ng/mL; Vitamin D 25-OH, D3 46 ng/mL; Vitamin D 25-OH, Total 46 ng/mL (30-100)
== END 2024-09-28 09:55 | disposition home or self-care (01) ==
LOC: HO.LAB 09:54
PROVIDERS: PCP Internal Medicine; Visit Provider Student in an Organized Health Care Education/Training Program
DX: M81.0 Age-related osteoporosis without current pathological fracture (principal)
CPT/HCPCS: 36415; 80053; 82306

== ENCOUNTER 2024-11-12 12:06 | Emergency (ER) | payer MEDICARE, MEDICAID, SELFPAY ==
--- NOTE | ~2024-11-12 | XR_ITS ---
CLINICAL HISTORY: fall 3 view left ankle Comparison: None provided Findings: On the oblique projection, there are subtle lucencies in the distal fibula at the level of the syndesmosis. Additionally, there are cortical irregularities in the inferior tip of the lateral malleolus. No dislocation. Mild arthritic changes. There is an ankle effusion. No radiopaque foreign body. There is anterolateral soft tissue swelling. There is a 9 mm plantar tendon enthesophyte. IMPRESSION: 1. Suspicion for nondisplaced fractures in the distal fibula. 2. Large plantar heel spur. This document has been electronically signed by: Zoie Peralta DO on 11/12/2024 13:23:08
[2024-11-12 12:15] VITALS: BP 117/52; BP 120/70; PULSE 73; PULSE 74; RESP 16; TEMP 36.7; O2SAT 94; O2SAT 96; BMI 32.9
--- OUTSIDE RECORDS SUMMARY | 2024-11-12 12:42 | XMS_ITS | Encounter Summary ---
Author Organization [facility] Address [address] [place] [address] Care Team Providers Care Traffic Manager Name Role Phone Mei Edward Md, MD Primary Care Provider Unavailable Reason for Visit * Reason Onset Date Comments Faxed Refill 04/10/2022 Encounter Details Date Type Department Care Team Description 04/10/2022 Refill Pulmonology - [place] [address] [facility] [address] [place] [address] Jalen Villatoro MD [address] [place] [id number] Faxed Refill Social History Tobacco Use Types [...] INH 100-25. will forward this paper to [facility] is requesting 3x 60 [phone] total * Telephone Encounter - Courtney Escalante - 04/10/2022 4:31 PM EST Refill not on med list. [facility] requesting for Breo Ellipta INH 100-25 (3x60 [id number] total) Pt has an appointment on 04/25/22 at 11:20am with Dr. Don documented in this encounter Plan of Treatment Not on file documented as of this encounter Visit Diagnoses Not on filedocumented in this encounter Care Teams Traffic Manager Relationship Specialty Start Date End Date Mei Edward MD, MD PCP - General Internal Medicine 11/19/18 documented as of this encounter
--- NOTE | 2024-11-12 12:53 | ED.LOWEXIN ---
HPI - Extremity Injury (Lower) General Chief Complaint: Extremity Injury, Lower Stated Complaint: FALL Time Seen by Provider: 11/12/24 12:10 Source: patient and EMS Mode of arrival: EMS Limitations: no limitations History of Present Illness ED Provider: DR. Narvaez HPI Narrative: 79-year-old female who had a coughing fit that make the patient feels vasovagal, patient felt weak bilateral lower extremities and fell twisting her left ankle patient felt a pop from her left ankle, patient was able to protect her fall, no LOC, no head injury, no neck pain, no hip pain, no CP, no SOB, no abdominal pain. Patient is not taking blood thinner. Related Data Home Medications ?Medication ?Instructions ?Recorded ?Confirmed calcium 600 mg (as 1 cap PO DAILY 02/02/21 05/04/24 carbonate)-vitamin D3 12.5 mcg (500 unit) capsule (Calcium with Vit D3) acetaminophen 325 mg tablet 650 mg PO Q6H PRN Headache 01/05/23 05/04/24 docusate sodium 100 mg tablet 100 mg PO DAILY PRN Constipation 01/05/23 05/04/24 multivitamin (Daily Multi-Vitamin 1 tab PO DAILY 03/17/23 05/04/24 tablet) Previous Rx's ?Medication ?Instructions ?Recorded albuterol sulfate 90 mcg/actuation 2 puff inhalation Q6H PRN 03/12/22 aerosol inhaler (ProAir HFA) shortness of breath or wheezing #8.5 grams pantoprazole 40 mg tablet,delayed 40 mg PO DAILY #90 tabs 04/14/24 release umeclidinium 62.5 mcg/actuation 1 inh inhalation DAILY 60 days #2 05/03/24 blister powder for inhalation ea (Incruse Ellipta) duloxetine 60 mg capsule,delayed 60 mg PO DAILY #90 caps 05/04/24 release fluticasone fur. 200 mcg-umeclid 1 inh inhalation DAILY 30 days #60 05/26/24 62.5 mcg-vilant 25 mcg ea inhalat.powder (Trelegy Ellipta) fluticasone propionate 115 2 puff inhalation Q12H 30 days #12 09/22/24 mcg-salmeterol 21 mcg/actuation grams HFA inhaler (Advair HFA) budesonide-formoterol HFA 160 2 puff inhalation BID 30 days 09/29/24 mcg-4.5 mcg/actuation aerosol #10.2 grams inhaler (Symbicort) budesonide-formoterol HFA 160 2 puff inhalation BID 30 days 09/29/24 mcg-4.5 mcg/actuation aerosol #10.2 grams inhaler (Symbicort) Allergies Allergy/AdvReac Type Severity Reaction Status Date / Time No Known Allergies Allergy Verified 11/12/24 12:19 Review of Systems Review of Systems: All other systems are reviewed and are negative Constitutional: Reports as per HPI and Reports no additional constitutional complaints Eyes: Reports as per HPI and Reports no additional eye complaints Reports system reviewed and no additional complaints, except as documented Cardiovascular: Reports as per HPI and Reports no additional cardiovascular complaints Respiratory: Reports as per HPI and Reports no additional respiratory complaints Gastrointestinal: Reports as per HPI and Reports no additional gastrointestinal complaints Genitourinary: Reports no additional female genitourinary complaints Musculoskeletal: Reports no additional musculoskeletal complaints Skin/Breast: Reports system reviewed and no additional complaints, except as docu Psychiatric: Reports no additional psychiatric complaints Endocrine: Reports no additional endocrine complaints Hematologic/Lymphatic: Reports no additional hematologic/lymphatic complaints Allergic/Immunologic: Reports no additional allergic/immunologic complaints Reports system reviewed and no additional complaints, except as documented and Reports Abnormal speech present [facility] Past Medical History Medical History Encounter for monitoring bisphosphonate therapy JER (obstructive sleep apnea) Moderate persistent asthma History of adenomatous polyp of colon Left hip pain Osteoporosis of lumbar spine Thrombocytopenia Benign recurrent vertigo Hiatal hernia with GERD Depression, major, in remission Skin lesion of face Impaired fasting glucose Osteopenia of multiple sites Environmental and seasonal allergies Surgical History History of ankle surgery No pertinent past surgical history Family History Family History Sister Thyroid disorder Sister Breast cancer Father Leukemia Maternal Aunt Breast cancer Paternal Aunt Bone cancer Social History Social History Housing: House Alcohol intake: current Alcohol intake frequency: a few times a week Patient Tobacco Use Status: Current someday Tobacco user Tobacco use type: Cigarette e-Cigarette/Vaping Use: Never Used Second Hand Smoke Exposure: No Advance Directives: Yes Advance Directives on File: Yes Advance Directives Date on File: 03/12/22 service: No Current occupational status: employed Current occupation: working part-time at [employer] Current occupational exposures/hazards: No Cognitive needs: No Hearing needs: No Vision needs: Yes Physical Exam Vital Signs: Vital Signs: Last Vital Signs Temp 98.1 F 11/12/24 12:15 Pulse 74 11/12/24 12:15 Resp 16 11/12/24 12:15 BP 117/52 L 11/12/24 12:15 Pulse Ox 94 11/12/24 12:15 O2 Del Method Room Air 11/12/24 12:15 BMI result Body Mass Index 32.9 Vital signs have been reviewed and appear to be correct. Blood pressure elevated. Heart rate normal. Respiratory rate normal. Temperature normal. Oxygen saturation normal. Appearance: Alert. Oriented X3. No acute distress. Head: Normal external exam. Normocephalic. Atraumatic. No Kearns signs noted. No raccoon eyes noted Eyes: PERRLA. EOMI. Conjunctiva and sclera normal. Eyelids normal. ENT: TM's Normal. Pharynx normal. Uvula midline. Moist mucous membranes. No trismus noted. No drooling noted. No muffled voice noted. Neck: Normal inspection. Neck supple. FROM. No adenopathy. Thyroid Normal. No meningeal signs. No neck mass noted. CVS: Normal heart rate and rhythm. Heart sound normal. No murmurs noted. Pulses normal throughout. Respiratory: No respiratory distress. Painless inspiration. Breath sounds normal. No wheezes/rales/rhonchi noted. Chest nontender. No accessory muscle usage noted or decreased air movement noted. Abdomen: Soft and nontender. Bowel sounds normal in all 4 quadrants. No distention noted. No organomegaly noted. No visible injury noted. Back: No CVA tenderness. Full range of motion noted. Skin: Skin warm and dry. Normal skin color. Normal skin turgor. No rashes/lesions/lacerations noted. Extremities: Left lower extremity, swelling on the lateral malleolus, tender to touch, left foot neurovascularly intact. Neuro: Oriented X 3. Cranial nerve exam: II-XII are grossly intact No motor deficit. No sensory deficit. Reflexes normal. Course Reevaluation(s) Reevaluation #1: A 79-year-old female came in after a mechanical fall after vasovagal episode causing left nondisplaced fibular fracture. Patient was placed in posterior/sugar-tong splint, patient was given a crutches instructed to no weight bearing and follow-up with orthopedic as an outpatient. Time: 13:45 Medical Decision Making Differential Diagnosis Differential Diagnoses: The differential diagnosis associated with the presentation includes (Left ankle fracture, head injury, cervical spine injury, chest injury, extremity injury, back injury.) Admission/Observation Consideration of admission/observation: Escalation of care including admission/observation considered Independent Interpretation I performed an independent interpretation of an: Plain X-Ray (Left ankle:1. Suspicion for nondisplaced fractures in the distal fibula. 2. Large plantar heel spur.) Radiology Impression Discussion of test interpretation with radiology: I have reviewed the radiologist's reading. Discharge Plan Discharge Clinical Impression: Closed fracture of distal end of left fibula Patient Disposition: Home, Self-Care Instructions: Ankle Fracture (ED), Crutch Instructions (ED) Additional Instructions: Do not walk on the splint. Prescriptions: No Action pantoprazole 40 mg tablet,delayed release (DR/EC) 40 mg PO DAILY Qty: 90 2RF Incruse Ellipta 62.5 mcg/actuation blister with device 1 inh inhalation DAILY 60 Days Qty: 2 5RF duloxetine 60 mg capsule,delayed release(DR/EC) 60 mg PO DAILY Qty: 90 3RF Trelegy Ellipta 200-62.5-25 mcg blister with device 1 inh inhalation DAILY 30 Days Qty: 60 12RF budesonide-formoterol [Symbicort] 160-4.5 mcg/actuation HFA aerosol inhaler 2 puff inhalation BID 30 Days Qty: 10.2 11RF budesonide-formoterol [Symbicort] 160-4.5 mcg/actuation HFA aerosol inhaler 2 puff inhalation BID 30 Days Qty: 10.2 11RF acetaminophen 325 mg Tablet 650 mg PO Q6H PRN (Reason: Headache) docusate sodium 100 mg Tablet 100 mg PO DAILY PRN (Reason: Constipation) calcium carbonate-vitamin D3 [Calcium 600 with Vitamin D3] 600 mg(1,500mg) -500 unit capsule 1 cap PO DAILY albuterol sulfate [ProAir HFA] 90 mcg/actuation HFA aerosol inhaler 2 puff inhalation Q6H PRN (Reason: shortness of breath or wheezing) Qty: 8.5 3RF multivitamin [Daily Multi-Vitamin] Tablet 1 tab PO DAILY fluticasone propion-salmeterol [Advair HFA] 115-21 mcg/actuation HFA aerosol inhaler 2 puff inhalation Q12H 30 Days Qty: 12 11RF Referrals: Mei Edward MD [Primary Care Provider, Internal Medicine] Robson Sharif MD [Physician, Orthopedics] Print Language: [place]
[2024-11-12 14:28] VITALS: BP 117/52; PULSE 74; RESP 16; TEMP 36.7; O2SAT 94
== END 2024-11-12 14:28 | disposition home or self-care (01) ==
PROVIDERS: Emergency Provider Emergency Medicine; PCP Internal Medicine
DX: S82.832A Other fracture of upper and lower end of left fibula, initial encounter for closed fracture (principal); X50.1XXA Overexertion from prolonged static or awkward postures, initial encounter; Y93.89 Activity, other specified; Y92.019 Unspecified place in single-family (private) house as the place of occurrence of the external cause; Y99.9 Unspecified external cause status
CPT/HCPCS: 29515; 73600; 99283

== ENCOUNTER → 2024-11-12 12:13 | Outpatient (BNV) | payer MEDICARE, MEDICAID, SELFPAY | PROVIDERS: Emergency Provider Emergency Medicine; PCP Internal Medicine; Visit Provider Radiology Diagnostic Radiology | DX: M77.32 Calcaneal spur, left foot (principal) | CPT/HCPCS: 73600 ==

== ENCOUNTER 2024-11-22 10:53 | Outpatient (REF) | payer MEDICARE, MEDICAID, SELFPAY ==
--- NOTE | ~2024-11-22 | XR_ITS ---
EXAMINATION: XR ANKLE, LEFT CLINICAL INFORMATION: M25.579 - Pain in unspecified ankle and joints of unspecified foot COMPARISON: 11/12/2024. TECHNIQUE: AP, lateral, and mortise views of the left ankle. FINDINGS: No definitive acute or evolving fracture evident. No dislocation or suspicious bone lesion. Normal bone mineralization. Normal alignment. Mortise intact. Talar dome is normal. Normal plantar arch. Mild arthritis in the subtalar joints. There is a moderate-sized plantar calcaneal spur. No significant ankle joint effusion. Improving lateral and anterior soft tissue swelling. XR/XR ankle LT min 3V IMPRESSION: 1. No acute bony abnormalities. No definite acute or subacute fibular fracture noted. 2. Improving lateral and anterior soft tissue swelling. 3. Moderate-sized plantar calcaneal spur. Electronically signed by: Robert Barroso MD 11/22/2024 01:04 PM EDT
== END 2024-11-22 10:54 | disposition home or self-care (01) ==
LOC: HO.HOSX 10:53
PROVIDERS: Visit Provider Physician Assistant
DX: S93.402D Sprain of unspecified ligament of left ankle, subsequent encounter (principal); M25.572 Pain in left ankle and joints of left foot; R60.0 Localized edema; X50.1XXD Overexertion from prolonged static or awkward postures, subsequent encounter
CPT/HCPCS: 73610; 99212

== ENCOUNTER 2024-11-22 12:45 | Outpatient (AMB) | payer MEDICARE, MEDICAID, SELFPAY ==
--- NOTE | 2024-11-22 12:54 | A.OFFVIS_ITS ---
Vital Signs 11/22/24 13:01 Height 5 ft 7 in Weight 213 lb BMI 33.4 Handedness Right Intake Visit Reasons: FC - left ankle fracture, DOI 11/12/24 Intake Note: Slime is a 79 year old female who presents today for a evaluation of her left ankle fracture, DOI 11/12/24. Patient was placed in a splint and was also given crutches at the ED. Patient states that she was coughing and she usually feels like she is going to faint when she coughs very hard. She felt weak in her both lower extremities and she fell. She mentions she felt and heard a pop from her left ankle. She states that he is having a lot of pain in her ankle. Patient does mention that she has tried putting weight on her heel in steed of her foot since it doesn't give her much pain. She hasnt taken anything for the pain since she is not having much pain, she is having a burning sensation on the lateral aspect of the ankle. IMPRESSION: 1. Suspicion for nondisplaced fractures in the distal fibula. 2. Large plantar heel spur. Allergies No Known Allergies Allergy (Verified 11/22/24 13:00) HPI HPI FC - left ankle fracture, DOI 11/12/24: Details: Ms. Singh this is a 79-year-old female who presents to the office today for evaluation of left ankle injury that she sustained on 11/12/2024. She reports that she had a vasovagal incident while having a coughing fit. She felt weak in bilateral lower extremities and fell twisting her left ankle. She presented to the emergency room on 11/12/2024 where x-rays were obtained and radiologist interpretation included a suspicion for a nondisplaced fracture of the distal fibula. She was placed in a posterior sugar-tong splint was given crutches and instructed to non weightbear until her follow up with orthopedics. While in the office today, she reports little pain. She points to the lateral aspect of her ankle where she is feeling the most pain and has accompanied edema. She is using a wheelchair for today's visit because it was easier to navigate out of her home. She has been using a walker to assist with ambulation. She denies any numbness or tingling and pain is managed. [facility] Medical History Encounter for monitoring bisphosphonate therapy JER (obstructive sleep apnea) Moderate persistent asthma History of adenomatous polyp of colon Left hip pain Osteoporosis of lumbar spine Thrombocytopenia Benign recurrent vertigo Hiatal hernia with GERD Depression, major, in remission Skin lesion of face Impaired fasting glucose Osteopenia of multiple sites Environmental and seasonal allergies Surgical History History of ankle surgery No pertinent past surgical history Family History Sister Thyroid disorder Sister Breast cancer Father Leukemia Maternal Aunt Breast cancer Paternal Aunt Bone cancer Social History Housing: House Alcohol intake: current Alcohol intake frequency: a few times a week Patient Tobacco Use Status: Current someday Tobacco user Tobacco use type: Cigarette e-Cigarette/Vaping Use: Never Used Second Hand Smoke Exposure: No Advance Directives Date on File: 03/12/22 service: No Current occupational status: employed Current occupation: working part-time at [employer] Current occupational exposures/hazards: No Cognitive needs: No Hearing needs: No Vision needs: Yes Review of Systems Const All systems reviewed & are unremarkable except as noted in HPI and below Physical Exam Vital Signs: BMI result Body Mass Index 33.4 Const General: cooperative, healthy appearing and no acute distress Resp Effort & Inspection: normal respiratory effort and able to speak in complete sentences Extrem Other: Left ankle: Lateral malleolar edema: Moderate. No surrounding erythema. No signs of infection. Patient is able to demonstrate slight dorsiflexion, plantar flexion, pronation and supination with pain. Unable to assess anterior drawer due to patient pain and guarding. Sensation is reportedly intact. Pedal pulse intact. Psych Appearance: grossly normal Mental Status: mental status grossly normal Attitude: cooperative Assessment & Plan Assessment & Plan (1) Left ankle sprain: Code(s): S93.402A - Sprain of unspecified ligament of left ankle, initial encounter Category: Medical Plan Ms. Singh this is a 79-year-old female who presents to the office today for evaluation of left ankle injury that she sustained on 11/12/2024. She reports that she had a vasovagal incident while having a coughing fit. She felt weak in bilateral lower extremities and fell twisting her left ankle. She presented to the emergency room on 11/12/2024 where x-rays were obtained and radiologist interpretation included a suspicion for a nondisplaced fracture of the distal fibula. She was placed in a posterior sugar-tong splint was given crutches and instructed to non weightbear until her follow up with orthopedics. While in the office today, she reports little pain. She points to the lateral aspect of her ankle where she is feeling the most pain and has accompanied edema. She is using a wheelchair for today's visit because it was easier to navigate out of her home. She has been using a walker to assist with ambulation . She denies any numbness or tingling and pain is managed. Although there was a question of a small fractures of the distal fibula that was interpreted on the x-rays that were obtained on 11/12/2024 in the emergency room, I do not appreciate a fracture at the x-rays that were obtained on today's visit. The patient was placed into a tall walking boot instructed that she may weightbear as tolerated. I did recommend that perhaps using the walker with the boot may be a more stable way for her to ambulate. I encouraged gentle range of motion. She can come out of the boot if she is resting on the couch or in bed. During these instances I have recommended she perform gentle range of motion to try to avoid any stiffness post injury. She does understand that any ambulation she will remain in the boot. Additionally, I have placed a referral to physical therapy. I would like to her to follow up in 4 weeks with me with repeat x- rays, sooner if needed. X-rays of the left ankle which were obtained while in the office today and were reviewed by me, Ada Mcpherson PA-C, revealed no acute fracture or dislocation. Orders: Orders XR ankle LT min 3V Today M25.579 - Pain in unspecified ankle and joints of unspecified foot Coding Level of Care Code Est Pt Level 3 (25090) Diagnoses Left ankle sprain S93.402A
[2024-11-22 13:01] VITALS: BMI 33.4
== END 2024-11-22 13:23 | disposition home or self-care (01) ==
LOC: HO.HOS 12:45
PROVIDERS: PCP Internal Medicine; Visit Provider Physician Assistant
DX: S93.402A Sprain of unspecified ligament of left ankle, initial encounter (principal)
CPT/HCPCS: 99213

== ENCOUNTER → 2024-11-22 12:47 | Outpatient (BNV) | payer MEDICARE, MEDICAID, SELFPAY | PROVIDERS: Visit Provider Radiology Diagnostic Radiology | DX: M77.32 Calcaneal spur, left foot (principal) | CPT/HCPCS: 73610 ==

== ENCOUNTER 2024-12-23 09:34 | Outpatient (REF) | payer MEDICARE, MEDICAID, SELFPAY ==
--- NOTE | ~2024-12-23 | XR_ITS ---
EXAMINATION: XR ANKLE 3 OR MORE VIEWS LEFT HISTORY: M25.579 - Pain in unspecified ankle and joints of unspecified foot COMPARISON: Comparison is made with prior examinations dated 11/22/2024 and 11/12/2024. FINDINGS: Three views of the left ankle are submitted. Osseous mineralization is normal. There is an oblique lucency in the distal fibula consistent with a fracture. There is callus formation noted along the distal fibular metadiaphysis, consistent with healing. The joint spaces are preserved. The soft tissues are unremarkable. XR/XR ankle LT min 3V IMPRESSION: Healing oblique fracture of the distal fibula. Electronically signed by: Kaushik Mendez MD 12/23/2024 11:15 AM EDT
== END 2024-12-23 09:35 | disposition home or self-care (01) ==
LOC: HO.HOSX 09:34
PROVIDERS: Visit Provider Physician Assistant
DX: S82.832A Other fracture of upper and lower end of left fibula, initial encounter for closed fracture (principal); X50.9XXA Other and unspecified overexertion or strenuous movements or postures, initial encounter; M25.579 Pain in unspecified ankle and joints of unspecified foot
CPT/HCPCS: 73610; 99212

== ENCOUNTER 2024-12-23 10:35 | Outpatient (AMB) | payer MEDICARE, MEDICAID, SELFPAY ==
--- NOTE | 2024-12-23 10:48 | A.OFFVIS_ITS ---
Vital Signs 12/23/24 10:56 Height 5 ft 7 in Weight 214 lb BMI 33.5 Intake Visit Reasons: OV-left ankle FC, DOI 11/12/24-w/xrays? Intake Note: Slime is a 79 year old female who presents today for a follow up of her left ankle sprain, DOI 11/12/24. Patient was placed in a tall walking boot and she could weight bear as tolerated. She mentions ambulating with the boot has been going okay, she notices feeling pain in the tendon in her left calf when she is not using her boot. Patient reports she has started physical therapy on 12/21/24 . Allergies No Known Allergies Allergy (Verified 11/22/24 13:00) HPI HPI OV-left ankle FC, DOI 11/12/24-w/xrays?: Details: Ms. Singh this is a 79-year-old female who presents to the office today for routine follow-up status post left ankle fracture. Date of injury was 11/12/2024 when she had a vasovagal incident during a coughing fit and fell twisting the left ankle. At her last appointment she was placed in a tall walking boot and instructed to attend physical therapy. She reports that this past week she has been out of the boot ambulating in her home with minimal difficulty. [facility] Medical History Encounter for monitoring bisphosphonate therapy JER (obstructive sleep apnea) Moderate persistent asthma History of adenomatous polyp of colon Left hip pain Osteoporosis of lumbar spine Thrombocytopenia Benign recurrent vertigo Hiatal hernia with GERD Depression, major, in remission Skin lesion of face Impaired fasting glucose Osteopenia of multiple sites Environmental and seasonal allergies Surgical History History of ankle surgery No pertinent past surgical history Family History Sister Thyroid disorder Sister Breast cancer Father Leukemia Maternal Aunt Breast cancer Paternal Aunt Bone cancer Social History Housing: House Alcohol intake: current Alcohol intake frequency: a few times a week Patient Tobacco Use Status: Current someday Tobacco user Tobacco use type: Cigarette e-Cigarette/Vaping Use: Never Used Second Hand Smoke Exposure: No Advance Directives Date on File: 03/12/22 service: No Current occupational status: employed Current occupation: working part-time at [employer] Current occupational exposures/hazards: No Cognitive needs: No Hearing needs: No Vision needs: Yes Review of Systems Const All systems reviewed & are unremarkable except as noted in HPI and below Physical Exam Vital Signs: BMI result Body Mass Index 33.5 Const General: cooperative, healthy appearing and no acute distress Resp Effort & Inspection: normal respiratory effort and able to speak in complete sentences Extrem Other: Left ankle: Lateral malleolar edema: Moderate. No surrounding erythema. No signs of infection. Patient is able to demonstrate slight dorsiflexion, plantar flexion, pronation and supination with pain. Negative anterior drawer. Sensation is reportedly intact. Pedal pulse intact. Psych Appearance: grossly normal Mental Status: mental status grossly normal Attitude: cooperative Assessment & Plan Assessment & Plan (1) Fracture of distal end of left fibula: Code(s): S82.832A - Other fracture of upper and lower end of left fibula, initial encounter for closed fracture Category: Medical Plan Ms. Singh this is a 79-year-old female who presents to the office today for routine follow-up status post left ankle fracture. Date of injury was 11/12/2024 when she had a vasovagal incident during a coughing fit and fell twisting the left ankle. At her last appointment she was placed in a tall walking boot and instructed to attend physical therapy. She reports that this past week she has been out of the boot ambulating in her home with minimal difficulty. While in the office today, repeat x-rays of the left ankle were obtained and reviewed by me, Ada Mcpherson PA-C, and reveal periosteal reaction at the left distal fibula likely indicative of a prior fracture. We will continue to treat this conservatively. She will continue attending physical therapy. I would like her to wean out of the boot in the next 1-2 weeks into a supportive walking shoe. She will follow up in 4 weeks after the completion of physical therapy, sooner if needed. Orders: Orders XR ankle LT min 3V Today M25.579 - Pain in unspecified ankle and joints of unspecified foot Coding Level of Care Code Est Pt Level 3 (66755) Diagnoses Fracture of distal end of left fibula S82.832A
[2024-12-23 10:56] VITALS: BMI 33.5
--- OUTSIDE RECORDS SUMMARY | 2024-12-23 11:14 | XMS_ITS | Encounter Summary ---
Author Organization [facility] Address [address] [place] [address] Care Team Providers Care Brusher Warp Name Role Phone Mei Edward Md, MD Primary Care Provider Unavailable Reason for Visit * Reason Onset Date Comments refill request 09/09/2019 Encounter Details Date Type Department Care Team Description 09/09/2019 Refill Pulmonology - [place] [address] [facility] [address] [place] [address] Martín Nelson MD [address] [facility] [address] [place] [address] refill request Social History Tobacco [...] N/A Patients current insurance carrier is: Payor: [facility] / Plan: AARP MEDICARE COMPLETE $15/$45 [facility] [id number] / Product Type: PPO [id number] documented in this encounter Plan of Treatment Not on file documented as of this encounter Visit Diagnoses Diagnosis Wheezing Shortness of breath Gastroesophageal reflux disease without esophagitis Esophageal reflux documented in this encounter Care Teams Brusher Warp Relationship Specialty Start Date End Date Mei Edward MD, MD PCP - General Internal Medicine 11/19/18 documented as of this encounter
--- OUTSIDE RECORDS SUMMARY | 2024-12-23 11:14 | XMS_ITS | Encounter Summary ---
Author Organization [facility] Address [address] [place] [address] Care Team Providers Care Electrician Elevator Maintenance Name Role Phone Mei Edward Md, MD Primary Care Provider Unavailable Reason for Visit * Reason Comments E-prescribe Rx Request Encounter Details Date Type Department Care Team Description 06/18/2022 Refill Pulmonology - [place] 175 [facility] [address] [place] [address] Jalen Villatoro MD [address] [place] [address] E-prescribe Rx Request Social History Tobacco Use Types Packs/Day Years Used Date Smoking Tobacco: Never Smokeless Tobacco: Never Alcohol Use Standard Drinks/Week Comments Yes 3 (1 standard drink = 0.6 oz pur e alcohol) Sex Assigned at Date Recorded Not on file documented as of this encounter Miscellaneous Notes * Telephone Encounter - Courtney Escalante - 06/19/2022 4:43 PM EST Scheduled an appt with Dr. Don in July; pt states she still has acouple left.So not to worry to send med refill. I did state that she has to be seen in order to be filled her medication. * Telephone Encounter - Courtney Escalante - 06/19/2022 4:37 PM EST Pt hasnt been seen for almost 3 years and needs a office visit. documented in this encounter Plan of Treatment Not on file documented as of this encounter Visit Diagnoses Not on filedocumented in this encounter Care Teams Electrician Elevator Maintenance Relationship Specialty Start Date End Date Mei Edward MD, MD PCP - General Internal Medicine 11/19/18 documented as of this encounter
--- OUTSIDE RECORDS SUMMARY | 2024-12-23 11:14 | XMS_ITS | Encounter Summary ---
Author Organization [facility] Address [address] [place] [address] Care Team Providers Care Securities Vault Supervisor Name Role Phone Carri Whitten MD Primary Care Provider Unavailab le Maria Eugenia Mcmahon MD Primary Care Provide r Unavailable Mei Edward Md, MD Primary Care Provider Unavailable Encounter Details Date Type Department Care Team Description 01/22/2017 Release of Information Medical Records [address] [place] [id number] Abstract, Provider Social History Tobacco Use Types Packs/Day Years Used Date Smoking Tobacco: Never Assessed Sex Assigned at Date Recorded Not on file documented as of this encounter Plan of Treatment Not on file documented as of this encounter Visit Diagnoses Not on filedocumented in this encounter Care Teams Securities Vault Supervisor Relationship Specialty Start Date End Date Carri Whitten MD PCP - General Internal Medicine 04/27/16 05/23/18 Maria Eugenia Mcmahon MD PCP - General Internal Medicine 05/24/18 Mei Edward MD, MD PCP - General Internal Medicine 11/19/18 documented as of this encounter
--- OUTSIDE RECORDS SUMMARY | 2024-12-23 11:14 | XMS_ITS | Encounter Summary ---
Author Organization [facility] Address [address] [place] [address] Care Team Providers Care Chief Quality Officer Name Role Phone Mei Edward Md, MD Primary Care Provider Unavailable Reason for Visit * Reason Onset Date Comments Medication 09/04/2023 Encounter Details Date Type Department Care Team Description 09/04/2023 Refill Pulmonology - [place] [address] [address] Aida Don MD [address] [phone] Medication Social History Tobacco Use Types Packs/Day Years Used Date Smoking Tobacco: Never Smokeless Tobacco: Never Alcohol Use Standard Drinks/Week Comments Yes 3 (1 standard drink = 0.6 oz pur e alcohol) Sex Assigned at Date Recorded Not on file documented as of this encounter Miscellaneous Notes * Telephone Encounter - Nahomy Sanabria - 09/17/2023 11:10 AM EDT Patient called stating that she called [facility] never received the rx for patient can it please be resend. Also they have provided us with fax number [phone] please send 90 day supply Please advice * Telephone Encounter - Queenie Noyola M.A. - 09/04/2023 11:38 AM EDT I see Breo in his history. I do not see why it was discontinued. Please advise. * Telephone Encounter - Ifeoma Alvarez - 09/04/2023 10:04 AM EDT Lisa: 09/18/2022 Nov: 12/10/2023 Pt requested 90 day supply of BREO ELLIPTA documented in this encounter Plan of Treatment Not on file documented as of this encounter Visit Diagnoses Not on filedocumented in this encounter Care Teams Chief Quality Officer Relationship Specialty Start Date End Date Mei Edward MD, MD PCP - General Internal Medicine 11/19/18 documented as of this encounter
--- OUTSIDE RECORDS SUMMARY | 2024-12-23 11:14 | XMS_ITS | Clinical Summary ---
Author Organization [facility] Address [address] [place] [address] Care Team Providers Care Electromedical Equipment Repairer Name Role Phone Mei Edward Md, MD Primary Care Provider Unavailable Allergies Active Allergy Reactions Severity Noted Date Comments Mixed Grasses 09/18/2022 Medications Medication Sig Dispensed Refills Start Date End Date Status pantoprazole (PROTONIX) 40 MG tabletIndications:W heezing,Shortness of breath,Chronic allergic rhinitis due to pollen, unspecified seasonality,Gastroe sophageal reflux disease without esophagitis Take 1 Tab by mouth daily. 0 02/23/2017 Active calcium carbonate (OS-STANISLAV) 600 MG TabIndications:Whee zing,Shortness of breath,Chronic allergic rhinitis due to pollen, unspecified seasonality,Gastroe sophageal reflux disease without esophagitis Take 600 mg by mouth 2 times daily (with meals). 0 Active Cholecalciferol (VITAMIN D-3 OR)Indications:Whee zing,Shortness of breath,Chronic allergic rhinitis due to pollen, unspecified seasonality,Gastroe sophageal reflux disease without esophagitis Take 1 Tab by mouth daily. 0 Active budesonide-formoter ol (SYMBICORT) 160-4.5 MCG/ACT inhalerIndications: Moderate persistent asthma without complication,Chroni c allergic rhinitis due to pollen,Gastroesopha geal reflux disease without esophagitis,Post-na leslie drainage Inhale 2 Puffs into the lungs every 12 hours for 90 days. This medication has inhaler steroid: Rinse mouth with water and expectorate after each dose to prevent oral/esophageal candidiasis or fungal infection. 1 Inhaler 5 05/25/2018 Active Spacer/Aero-Holding Chambers (AEROCHAMBER MV) Misc 1 Device by Does not apply route as needed (Using with the inhaler). 1 Each 0 12/29/2018 Active duloxetine (CYMBALTA) 60 MG capsule 0 07/25/2022 Active TRAZODONE HCL OR Take by mouth. 0 Acti ve ALBUTEROL SULFATE (ProAir HFA) 108 (90 Base) MCG/ACT Aero SolnIndications:Whe ezing,Shortness of breath,Gastroesopha geal reflux disease without esophagitis Inhale 1 Puff into the lungs every 6 hours as needed for Cough or Wheezing for up to 90 days. 3 g 3 09/18/2022 Active budesonide-formoter ol (Symbicort) 160-4.5 MCG/ACT inhalerIndications: Moderate persistent asthma, unspecified whether complicated Inhale 2 Puffs into the lungs 2 times daily for 90 days. 3 g 1 09/25/2023 Active Active Problems Problem Noted Date Asthma 09/07/2018 Overview: wheezing and SOB Insomnia 09/07/2018 Depression 09/07/2018 Osteopenia 09/07/2018 Vitamin D deficiency 09/07/2018 Alcohol use 09/07/2018 Obesity (BMI 30.0-34.9) 09/07/2018 Paresthesias 09/07/2018 Adenoma of colon 09/07/2018 History of diverticulosis 09/07/2018 Allergic rhinitis 03/04/2017 GERD (gastroesophageal reflux disease) 1 05/04/2016 Resolved Problems Problem Noted Date Resolved Date Wheezing 03/04/2017 09/07/2018 Shortness of breath 03/04/2017 09/07/2018 Family History Medical History Relation Name Comments Cancer of the Breast Aunt 1 maternal Cancer of the Breast Aunt 2 paternal Leukemia Father Cancer of the Breast Maternal Grandfather hyperlipidemia Mother CA Cancer of the Breast Sister 1 Sarcoma Sister 2 Relation Name Status Comments Aunt 1 maternal Aunt 2 paternal Alive Father Maternal Grandfather Mother Sister 1 Sister 2 Social History Tobacco Use Types Packs/Day Years Used Date Smoking Tobacco: Never Smokeless Tobacco: Never Tobacco Cessation:Counseling Given: Not Answered Alcohol Use Standard Drinks/Week Comments Yes 3 (1 standard drink = 0.6 oz pur e alcohol) Sex Assigned at Date Recorded Not on file Last Filed Vital Signs Vital Sign Reading Time Taken Comments Blood Pressure 118/82 09/18/2022 10:41 AM EDT Pulse 78 09/18/2022 10:41 AM EDT Temperature 36.7 C (98 F) 09/18/2022 10:41 AM EDT Respiratory Rate 18 09/18/2022 10:41 AM EDT Oxygen Saturation 98% 09/18/2022 10:41 AM EDT Inhaled Oxygen Concentration - - Weight 97.1 kg (214 lb) 09/18/2022 10:41 AM EDT Height 171.5 cm (5' 7.5 ) 09/18/2022 10:41 AM ED T Body Mass Index 33.02 09/18/2022 10:41 AM EDT Plan of Treatment Health Maintenance Due Date Last Done Comments Covid-19 Vaccine (#1) 02/13/1946 DTAP/TDAP/TD (1 - Tdap) 1964 CHOLESTEROL SCREENING 1965 MAMMOGRAM 1985 SHINGLES VACCINE (1 of 2) 08/15/1995 BONE DENSITY SCREENING 2010 PNEUMOCOCCAL VACCINE (1 - PCV) 2010 BMI CHECK/ADVISE 04/27/2024 03/31/2019, , 05/11/2017, Additional history exists INFLUENZA (#1) 2024 Care Teams Electromedical Equipment Repairer Relationship Specialty Start Date End Date Mei Edward MD, MD PCP - General Internal Medicine 11/19/18
== END 2024-12-23 11:07 | disposition home or self-care (01) ==
LOC: HO.HOS 10:35
PROVIDERS: PCP Internal Medicine; Visit Provider Physician Assistant
DX: S82.832A Other fracture of upper and lower end of left fibula, initial encounter for closed fracture (principal)
CPT/HCPCS: 99213

== ENCOUNTER → 2024-12-23 10:37 | Outpatient (BNV) | payer MEDICARE, MEDICAID, SELFPAY | PROVIDERS: Visit Provider Radiology Diagnostic Radiology | DX: S82.432D Displaced oblique fracture of shaft of left fibula, subsequent encounter for closed fracture with routine healing (principal) | CPT/HCPCS: 73610 ==

== ENCOUNTER 2025-01-13 08:49 | Outpatient (RCR) | payer MEDICARE, OTHER, SELFPAY ==
--- NOTE | 2024-12-21 13:44 | MHC.PT.EP ---
[facility] [place] Office [place] Office [place] Office [address] Shani Gould [address] [phone] F: [phone] F: [phone] F: [phone] F: [phone] Physical Therapy Plan of Care Date of Evaluation: 12/21/24 Date of Surgery: Diagnosis: LEFT ANKLE SPRAIN Assessment: 79 YO FEMALE REF TO PT FOR Lt ANKLE SPRAIN SUSTAINED IN A FALL AT HOME. SHE WAS SEEN IN [facility] ER AND THEN REF TO ORTHO-> SHE WAS ISSUED A WALKING BOOT FOR WBAT W HER WALKER UNTIL ORTHO F/U 12/23/24 - HOWEVER, SHE PRESENTED TO PT EVAL W/O HER BOOT OR WALKER, SHE WAS WEARING A SLIDE ON FABRIC ANKLE SUPPORT. OBJECTIVE FINDINGS: ALTERED GAIT, DECR AROM Lt ANKLE, STRENGTH DEFICITS IN Lt LE, (+) LUMBOPELVIC ASYMM CREATING A LLD. THE Pt RESIDES ALONE, DECR DORENE TO PROLONGED WALKING , LEVEL AND STAIRS, INCR STANDING... SHE AGREES W PLAN OF CARE ADDRESSING SPRAIN OF HER Lt ANTEROLAT ANKLE (ATFL AND CFL). Frequency and Duration: The patient will be seen 2 x WK x 5 WKS Short Term Goals: DECR Lt ANKLE PAIN TO 2-3/10 IMPROVE Lt ANKLE ROM INITIATE HEP-> IMPROVE LUMBOPELVIC SYMM Usp Goals: INDEP W HEP Pt DEMON EFFICIENT GAIT ON LEVEL AND STAIRS IMPROVED LEFI, AT EVAL 34/80 Treatment Plan: Modalities to reduce pain, spasms and effusion. Manual therapy to restore motion and function. Therapeutic exercise to improve strength and flexibility. Neuromuscular re-education for posture and balance. Therapeutic activities to return to functional activities of daily living. Electronically signed by: BERTA COLEMAN,PT Please sign and return to therapist. Thank you for your referral.
--- NOTE | 2025-02-24 14:41 | MHC.PT.DC ---
[facility] [place] [facility] [place] [facility] [place] [facility] [address] Shani Gould [address] [phone] F: [phone] F: [phone] F: [phone] F: [phone] Physical Therapy Discharge Report Diagnosis: LEFT ANKLE SPRAIN Date of Surgery: DOI 11/12/24 Date of Evaluation: 12/21/24 Date of Discharge: 02/24/25 Treatments to Date: 6 Cancellations to Date: 3 No Shows to Date: 1 Discharge Status: Achieved Goals Improved Function Independent with HEP Discharge Summary: AT LAST ATTENDED PT APPT, ERWIN BENEFITTED FROM REVIEW AND PERF OF HER HEP, TO ENHANCE CARRYOVER W HEP- SHE DISPLAYED MORE EFFICIENT GAIT MECH AND TRANSITIONAL MVMTS- SHE DENIED PAIN IN HER Lt ANKLE - A FORMAL REASSESSMENT WAS NOT PERF DUE TO POOR ATTENDANCE FOR LAST FEW SCHED APPTS Electronically signed by: BERTA COLEMAN,PT Please sign and return to therapist. Thank you for your referral.
== END 2025-02-24 14:41 | disposition home or self-care (01) ==
LOC: HO.PT 08:49
PROVIDERS: PCP Internal Medicine; Visit Provider Physician Assistant
DX: S93.402D Sprain of unspecified ligament of left ankle, subsequent encounter (principal); X58.XXXD Exposure to other specified factors, subsequent encounter
CPT/HCPCS: 97110; 97162; 97530

== ENCOUNTER 2025-01-16 09:50 | Outpatient (REF) | payer MEDICARE, MEDICAID, SELFPAY ==
--- NOTE | ~2025-01-16 | FL_ITS ---
FL/FL barium swallow IMPRESSION: Moderate size paraesophageal hiatal hernia. No reflux seen. 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 There is no obstruction. Electronically signed by: Keyon Best MD 01/16/2025 03:13 PM EDT
== END 2025-01-16 09:51 | disposition home or self-care (01) ==
LOC: HO.XRAY 09:50
PROVIDERS: PCP Internal Medicine; Visit Provider Hospitalist
DX: K21.9 Gastro-esophageal reflux disease without esophagitis (principal)
CPT/HCPCS: 74220

== ENCOUNTER → 2025-01-16 09:53 | Outpatient (BNV) | payer MEDICARE, MEDICAID, SELFPAY | PROVIDERS: PCP Internal Medicine; Visit Provider Radiology Diagnostic Radiology | DX: K21.9 Gastro-esophageal reflux disease without esophagitis (principal) | CPT/HCPCS: 74221 ==

== ENCOUNTER 2025-01-19 10:16 | Outpatient (AMB) | payer MEDICARE, MEDICAID, SELFPAY ==
--- NOTE | 2025-01-19 10:43 | A.OFFVIS_ITS ---
Intake Visit Reasons: OV-LT ankle FC, DOI 11/12/24-w/xrays Intake Note: Slime is a 79 year old female who presents today for a follow up of her fracture of distal end of left fibula, DOI 11/12/24. At her last visit she was advised to continue attending physical therapy and to work on weaning off of the boot into a supported shoe. Patient states she is not ahivng pain. She does notice that she is having still swelling in her ankle. Allergies No Known Allergies Allergy (Verified 01/19/25 10:44) HPI HPI OV-LT ankle FC, DOI 11/12/24-w/xrays: Details: Ms. Singh this is a 79-year-old female who presents to the office today for routine follow-up status post left distal fibular fracture that she sustained on 11/12/2024. At her last appointment on 12/23/2024 patient was instructed to continue with physical therapy and weaned out of the tall walking boot in the next 1-2 weeks into a supportive walking sneaker. Patient has done so appropriately. She does not experience any pain. No difficulty with ambulation. [facility] Medical History Encounter for monitoring bisphosphonate therapy JER (obstructive sleep apnea) Moderate persistent asthma History of adenomatous polyp of colon Left hip pain Osteoporosis of lumbar spine Thrombocytopenia Benign recurrent vertigo Hiatal hernia with GERD Depression, major, in remission Skin lesion of face Impaired fasting glucose Osteopenia of multiple sites Environmental and seasonal allergies Surgical History History of ankle surgery No pertinent past surgical history Family History Sister Thyroid disorder Sister Breast cancer Father Leukemia Maternal Aunt Breast cancer Paternal Aunt Bone cancer Social History Housing: House Alcohol intake: current Alcohol intake frequency: a few times a week Patient Tobacco Use Status: Current someday Tobacco user Tobacco use type: Cigarette e-Cigarette/Vaping Use: Never Used Second Hand Smoke Exposure: No Advance Directives Date on File: 03/12/22 service: No Current occupational status: employed Current occupation: working part-time at [employer] Current occupational exposures/hazards: No Cognitive needs: No Hearing needs: No Vision needs: Yes Review of Systems Const All systems reviewed & are unremarkable except as noted in HPI and below Physical Exam Const General: cooperative, healthy appearing and no acute distress Resp Effort & Inspection: normal respiratory effort and able to speak in complete sentences Extrem Other: Left ankle: Lateral malleolar edema: While. No surrounding erythema. No signs of infection. Patient is able to demonstrate dorsiflexion, plantar flexion, pronation and supination without pain or limitation. Negative anterior drawer. Sensation is reportedly intact. Pedal pulse intact. Psych Appearance: grossly normal Mental Status: mental status grossly normal Attitude: cooperative Assessment & Plan Assessment & Plan (1) Fracture of distal end of left fibula: Code(s): S82.832A - Other fracture of upper and lower end of left fibula, initial encounter for closed fracture Category: Medical Plan Ms. Singh this is a 79-year-old female who presents to the office today for routine follow-up status post left distal fibular fracture that she sustained on 11/12/2024. At her last appointment on 12/23/2024 patient was instructed to continue with physical therapy and weaned out of the tall walking boot in the next 1-2 weeks into a supportive walking sneaker. Patient has done so appropriately. She does not experience any pain. No difficulty with ambulation. While in the office today, repeat x-rays were obtained of the left ankle and reveal routine healing left distal fibular fracture. Patient has weaned out of the tall walking boot and into a supportive sneaker. She is no longer experiencing any pain. She has full painless range of motion. She will resume back to normal activities as tolerated using pain as her guide. She will follow up with Orthopedics p.r.n., sooner if needed. Orders: Orders XR ankle LT min 3V Today M25.579 - Pain in unspecified ankle and joints of unspecified foot Coding Level of Care Code Global (99903) Diagnoses Fracture of distal end of left fibula S82.832A
== END 2025-01-19 11:18 | disposition home or self-care (01) ==
LOC: HO.HOS 10:17
PROVIDERS: PCP Internal Medicine; Visit Provider Physician Assistant
DX: S82.832D Other fracture of upper and lower end of left fibula, subsequent encounter for closed fracture with routine healing (principal)
CPT/HCPCS: 99213

== ENCOUNTER → 2025-01-19 10:29 | Outpatient (BNV) | payer MEDICARE, MEDICAID, SELFPAY | PROVIDERS: Visit Provider Radiology Diagnostic Radiology | DX: M25.572 Pain in left ankle and joints of left foot (principal) | CPT/HCPCS: 73610 ==

== ENCOUNTER 2025-01-19 11:20 | Outpatient (REF) | payer MEDICARE, MEDICAID, SELFPAY ==
--- NOTE | ~2025-01-19 | XR_ITS ---
EXAMINATION: XR ANKLE 3 OR MORE VIEWS LEFT HISTORY: M25.579 - Pain in unspecified ankle and joints of unspecified foot COMPARISON: Comparison is made with the prior examination dated 12/23/2024. FINDINGS: Three views of the left ankle are submitted. Osseous mineralization is normal. There has been further healing of the previously noted oblique fracture of the distal fibula with greater callus formation. The fracture line remains visible. No new fracture or dislocation is seen. Again seen is a prominent entire calcaneal spur. The joint spaces are preserved. There is lateral soft tissue swelling. XR/XR ankle LT min 3V IMPRESSION: Healing oblique fracture of the distal fibula. Electronically signed by: Kaushik Mendez MD 01/19/2025 11:04 AM EDT
== END 2025-01-19 11:21 | disposition home or self-care (01) ==
LOC: HO.HOSX 11:20
PROVIDERS: Visit Provider Physician Assistant
DX: S82.832D Other fracture of upper and lower end of left fibula, subsequent encounter for closed fracture with routine healing (principal); X58.XXXD Exposure to other specified factors, subsequent encounter
CPT/HCPCS: 73610; 99212

== ENCOUNTER 2025-01-20 10:38 | Outpatient (AMB) | payer MEDICARE, MEDICAID, SELFPAY ==
[2025-01-20 10:40] VITALS: BP 122/70; PULSE 81; O2SAT 97; BMI 33.1
--- NOTE | 2025-01-20 10:40 | MHC.OFFVIS ---
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 Apparently she did have a positive methacholine challenge at [facility]. The patient has been on Breo inhaler and also has a rescue inhaler. Recently started developing a productive cough with yellow phlegm. She did go to urgent Care. She was diagnosed with walking pneumonia given a Z-Gerardo. She is partially better but still having issues. She also has daytime drowsiness. Her [place] score is elevated 03/20. She is also was told that she has some irregular heartbeats. I did look at her previous EKG appeared to show normal sinus rhythm. She did have a sleep study done as [facility] in [facility] which showed moderate sleep apnea. The patient opted not treating it. Will try to get the report to look at it and see if she is willing to try CPAP specially if he does have cardiovascular risk factors and persistent sleep apnea. In the meantime the patient does have dyspnea on exertion. She has been on Breo for some time. More recent PFTs that I can see. Will have her get a chest x-ray and also optimize her respiratory medicine by adding Incruse to her Breo. If this works for her she may be a good candidate for Trelegy. 05/25/2024 the patient is here for pulmonary follow-up visit. Overall she is doing okay. She is noticing some increased dyspnea on exertion [id number] severity and also a dry hacky cough. Moderate severity. Feels like her asthma is acting up. She has been taking Incruse. I had center Trelegy to the pharmacy but she had been just taking the Incruse at this time. She is going to go to her house to make sure she has a Trelegy available and start that. When she is on the Trelegy she can not reassess her symptoms after few weeks. I am hopeful that her respiratory symptoms she started subsiding. If not she can always call the office and we can go ahead and consider treating her for chronic bronchitis with Daliresp. We need to do pulmonary function studies. Will plan to do the Xopenex visit she comes in 4 months. In addition to that we did look at her x-ray that she had in 04/15/2022. I personally reviewed with her demonstrating no acute disease. The patient also had a sleep study back in 2022. Was done with [facility]. Seem that she had an AHI of 16 which is moderate sleep apnea. Per primarily when she was sleeping on her back. She had no evidence of any sleep apnea when she laid on her side. We did talk about positional sleep therapy at this time. Her [place] score is not significantly elevated at 11/17. If her daytime drowsiness is worsen or she develops any worsening cardiovascular disease we can always consider repeating the sleep study. Will plan to follow-up with PFTs if she has any issues prior to that she will call for an earlier assessment. 09/22/2024 the patient is here for pulmonary follow-up visit. Overall the patient has been doing fairly okay. She did not tolerate the Trelegy. The patient developed some irritation to her throat and she stopped it. She continues use her rescue inhaler as needed. She has has issues with her hiatal hernia. She did see a surgeon for. She really wants surgery although she was recommended not to have surgery at this time. We did talk about the importance of the reflux diet and to followed closely with these recommendations to minimize the reflux symptoms that can cause worsening cough active asthma and also chronic rhinitis. The patient did have pulmonary function studies demonstrating reversible obstruction consistent with asthma. Will go ahead and start her on Advair since she did not tolerate Trelegy. She will do an HFA to avoid the powder. In addition to that she will continue with the reflux diet and perform a barium swallow. As far as sleep apnea she needs to make sure she sleeps on her side. To take care the sleep apnea and also these reflux disease she is going to get risers for the head of the bed so she can sleep elevated. She will follow-up in 4 months so we can review her progress. Otherwise she can always call for an earlier assessment. 01/20/2025 the patient is here for a pulmonary follow-up visit. Overall she is doing good. She did start the Symbicort but then she only had a month worth and then she went back to the Trelegy. Again, the Trelegy is difficult to tolerate due to the powder. Therefore she rather be on Symbicort. Will go ahead and send her a prescription 3 month supply to her mail away for the Symbicort at this time. In the meantime she did try to get a sputum for culture but she was not able to do so. Overall she is feeling better. She did have a barium swallow which demonstrated again the moderate-size hiatal hernia. She is following closely with GI for that she has serial endoscopies which have been okay. She also did see a surgeon to see if it was worthwhile fixing but she was recommended not to pursue any surgical interventions at this time. Overall she is doing well will follow-up in a year's time if she has any issues prior to that she can always call for an earlier assessment. Prior to the visit will have her get an x-ray. [facility] Medical History Encounter for monitoring bisphosphonate therapy JER (obstructive sleep apnea) Moderate persistent asthma History of adenomatous polyp of colon Left hip pain Osteoporosis of lumbar spine Thrombocytopenia Benign recurrent vertigo Hiatal hernia with GERD Depression, major, in remission Skin lesion of face Impaired fasting glucose Osteopenia of multiple sites Environmental and seasonal allergies Surgical History History of ankle surgery No pertinent past surgical history Family History Sister Thyroid disorder Sister Breast cancer Father Leukemia Maternal Aunt Breast cancer Paternal Aunt Bone cancer Social History Housing: House Alcohol intake: current Alcohol intake frequency: a few times a week Patient Tobacco Use Status: Current someday Tobacco user Tobacco use type: Cigarette e-Cigarette/Vaping Use: Never Used Second Hand Smoke Exposure: No Advance Directives Date on File: 03/12/22 service: No Current occupational status: employed Current occupation: working part-time at [employer] Current occupational exposures/hazards: No Cognitive needs: No Hearing needs: No Vision needs: Yes Review of Systems Const Reports daytime sleepiness, Denies fever(s), Reports headache(s) and Reports snoring Eyes Reports no additional complaints ENT Reports headache(s), Reports nasal congestion and Reports nasal discharge Card Denies chest pain, Reports palpitations and Reports dyspnea on exertion Resp Reports cough, Reports dyspnea on exertion, Reports snoring and Reports wheezing GI Reports no additional complaints Musc Reports no additional complaints Skin/Breast Denies rash Neuro Reports headache(s) Endo Reports palpitations Renaldo/Lymph Reports no additional complaints Aller/Immun Reports wheezing Physical Exam Vital Signs: Last Vital Signs Pulse 81 01/20/25 10:40 BP 122/70 01/20/25 10:40 Pulse Ox 97 01/20/25 10:40 Oxygen Delivery Method Room Air 01/20/25 10:40 BMI result Body Mass Index 33.1 Const General: comfortable HEENT Head: Yes normocephalic Neck Neck: Yes supple Chest Chest palpation & inspection: normal inspection of the chest Resp Effort & Inspection: normal respiratory effort Auscultation: clear to auscultation bilaterally Cardio Heart sounds: S1 normal heart sound present and S2 normal heart sound present GI Palpation (GI): Soft to palpation Skin General skin exam: no rashes or lesions noted Extrem General: Yes no clubbing, cyanosis or edema Assessment & Plan Assessment & Plan (1) Moderate persistent asthma: Code(s): J45.40 - Moderate persistent asthma, uncomplicated Category: Medical Qualifiers: Asthma complication type: uncomplicated Qualified Code(s): J45.40 - Moderate persistent asthma, uncomplicated (2) JER (obstructive sleep apnea): Code(s): G47.33 - Obstructive sleep apnea (adult) (pediatric) Category: Medical (3) Bronchitis: Code(s): J40 - Bronchitis, not specified as acute or chronic Category: Medical Plan continue Symbicort, add spacer positional sleep therapy for now reflux diet Sleep with HOB elevated Barium swallow with hiatal hernia, sees GI CXR F/U 6 months Orders: Orders XR chest 2V 01/20/25 J45.40 - Moderate persistent asthma, uncomplicated Medications: New budesonide-formoterol 160-4.5 mcg/actuation (Symbicort) 2 puffs inhalation BID 10.2 grams 3RF 90 days J44.89 - Other specified chronic obstructive pulmonary disease Coding Level of Care Code Est Pt Level 4 (39309) Complex EM visit Add On G2211 Diagnoses Moderate persistent asthma without complication J45.40 Asthma complication type: uncomplicated JER (obstructive sleep apnea) G47.33 Bronchitis J40 Time Spent (min) 16
== END 2025-01-20 11:06 | disposition home or self-care (01) ==
LOC: HO.HPS 10:39
PROVIDERS: PCP Internal Medicine; Visit Provider Hospitalist
DX: J45.40 Moderate persistent asthma, uncomplicated (principal); G47.33 Obstructive sleep apnea (adult) (pediatric); J40 Bronchitis, not specified as acute or chronic
CPT/HCPCS: 99214; G2211

== ENCOUNTER → 2025-01-20 10:38 | Outpatient (BNVA) | payer MEDICARE, MEDICAID, SELFPAY | PROVIDERS: PCP Internal Medicine; Visit Provider Hospitalist | DX: J45.40 Moderate persistent asthma, uncomplicated (principal); J40 Bronchitis, not specified as acute or chronic; Z72.0 Tobacco use; G47.33 Obstructive sleep apnea (adult) (pediatric) | CPT/HCPCS: 99212 ==

== ENCOUNTER 2025-02-09 12:50 | Outpatient (REF) | payer MEDICARE, MEDICAID, SELFPAY ==
--- NOTE | ~2025-02-09 | MM_ITS ---
EXAMINATION: MM SCREENING DIGITAL BREAST TOMOSYNTHESIS, BILATERAL CLINICAL INFORMATION: Screening. Asymptomatic. COMPARISON: Comparison made to multiple prior, most recent February 05, 2024, and most remote September 08, 2018. TECHNIQUE: Digital breast tomosynthesis is performed in mediolateral oblique and craniocaudal views along with computer-aided detection (CAD). Synthesized 2D images are generated from the tomosynthesis. FINDINGS: BREAST COMPOSITION: The breasts are heterogeneously dense, which may obscure small masses. BILATERAL BREASTS: No significant masses, suspicious calcifications or other abnormalities are seen in either breast. MM/MM tomosynthesis screening BI IMPRESSION: BILATERAL BREASTS: Negative, no mammographic evidence of malignancy. Normal interval follow-up is recommended in 12 months. ASSESSMENT: BI-RADS: Category 1: Negative RECOMMENDATION: Routine annual mammography screening. FOLLOW-UP: 1 year F/U This examination should not preclude the clinical evaluation of a suspicious palpable abnormality. This patient's information was entered into a reminder system with a target due date for their next mammogram. Electronically signed by: Juaquin Perrin MD 02/12/2025 01:34 PM EDT
--- NOTE | ~2025-02-09 | MM_ITS ---
EXAMINATION: DXA BONE DENSITY AXIAL HISTORY: M81.0 - Age-related osteoporosis without current pathological fracture TECHNIQUE: [employer] Dual energy absorptiometry (DEXA) of the lumbar spine, total left hip, and femoral neck was performed. COMPARISON: Comparison is made with the prior examination dated 01/29/2023. FINDINGS: The bone mineral density of the lumbar spine is 1.078 g/cm2, corresponding to a T-score of -0.9, and a Z-score of -0.1. This is indicative of normal bone mineral density. This represents a BMD change of 8.5% compared to the prior exam. This is statistically significant. The bone mineral density of the left total hip is 0.876 g/cm2, corresponding to a T-score of -1.0, and a Z-score of 0.2. This is indicative of normal bone mineral density. This represents a BMD change of 1.6% compared to the prior exam. This is not statistically significant. The bone mineral density of the left femoral neck is 0.813 g/cm2, corresponding to a T-score of -1.6, and a Z-score of -0.2. This is indicative of osteopenia. This represents a BMD change of -1.2% compared to the prior exam. FRACTURE RISK: The FRAX index suggests a ten year probability of major osteoporotic fracture of 19.0%, and of hip fracture 4.1%. MM/XR DEXA axial skeleton IMPRESSION: Based on bone mineral density, and according to World Health Organization (WHO) criteria, the diagnosis is consistent with osteopenia. Statistically, 68% of repeat scans fall within 1 SD (+/- 0.010 g/cm2 for AP spine L1-L4) and 1 SD (+/- 0.012 g/cm2 for femur total) FRAX is a trademark of the [employer] [place] [facility] Metabolic Bone Disease, a World Health Organization (WHO) Collaborating Center. Electronically signed by: Kaushik Mendez MD 02/09/2025 01:54 PM EDT
== END 2025-02-09 12:51 | disposition home or self-care (01) ==
LOC: HO.MAMMO 12:50
PROVIDERS: PCP Internal Medicine; Visit Provider Student in an Organized Health Care Education/Training Program
DX: Z12.31 Encounter for screening mammogram for malignant neoplasm of breast (principal); M81.0 Age-related osteoporosis without current pathological fracture
CPT/HCPCS: 77063; 77067; 77080

== ENCOUNTER → 2025-02-09 13:30 | Outpatient (BNV) | payer MEDICARE, MEDICAID, SELFPAY | PROVIDERS: PCP Internal Medicine; Visit Provider Radiology Diagnostic Radiology | DX: E28.39 Other primary ovarian failure (principal) | CPT/HCPCS: 77080 ==